=== PATIENT | male | born 1945 | race American Indian/Alaskan Native ===

== ENCOUNTER 2016-08-12 04:54 | Inpatient (IN) ==
[2016-08-12] MEDS ORDERED: CIPROFLOXACIN 400 MG/200 ML BAG IV ONE (07:00)
[2016-08-12] MEDS ORDERED: LABETALOL 100 MG TABLET PO ONE (07:30)
[2016-08-12] MEDS ORDERED: PHENYTOIN SOD 100 MG CAPSULE PO ONE (07:30)
[2016-08-12] MEDS ORDERED: MIDAZOLAM 5 MG/5 ML VIAL IV ONE (07:35)
[2016-08-12] MEDS ORDERED: ONDANSETRON 4 MG/2 ML VIAL IV ONE (07:35)
[2016-08-12] MEDS ORDERED: ROCURONIUM 10 MG/ML ML IV ONE (07:35)
[2016-08-12] MEDS ORDERED: fentaNYL 250 MCG/5 ML VIAL IV ONE (07:35)
[2016-08-12] MEDS ORDERED: DEXAMETHASONE 10 MG/ML VIAL IV ONE (07:35)
[2016-08-12] MEDS ORDERED: PROPOFOL 200 MG/20 ML VIAL IV ONE (07:35)
[2016-08-12] MEDS ORDERED: NEOSTIGMINE 1 MG/ML VIAL IV ONE (07:35)
[2016-08-12] MEDS ORDERED: GLYCOPYRROLATE 0.2 MG/ML VIAL IV ONE (07:35)
[2016-08-12] MEDS ORDERED: LIDOCAINE HCL/PF 100 MG/5 ML SYRINGE IV ONE (07:35)
[2016-08-12] MEDS ORDERED: HYDROmorphone 2 MG/ML SYRINGE IV PRN (08:44)
[2016-08-12] MEDS ORDERED: METHOCARBAMOL 1,000 MG/10 ML VIAL IV PRN (08:44)
[2016-08-12] MEDS ORDERED: diphenhydrAMINE 50 MG/ML VIAL IV PRN (08:44)
[2016-08-12] MEDS ORDERED: FLUMAZENIL 0.1 MG/ML ML IV PRN (08:44)
[2016-08-12] MEDS ORDERED: ONDANSETRON 4 MG/2 ML VIAL IV PRN ×3 (08:44→12:09)
[2016-08-12] MEDS ORDERED: IPRATROPIUM/ALBUTEROL 3 ML AMPUL.NEB NEB PRN ×2 (08:44→15:07)
[2016-08-12] MEDS ORDERED: MEPERIDINE 25 MG/ML SYRINGE IV PRN (08:44)
[2016-08-12] MEDS ORDERED: LACTATED RINGERS 250 ML IV PRN (08:44)
[2016-08-12] MEDS ORDERED: NALOXONE HCL 0.4 MG/ML VIAL IV PRN (08:44)
[2016-08-12] MEDS ORDERED: LACTATED RINGERS 1,000 ML IV SCH (08:45)
[2016-08-12] MEDS ORDERED: MAG HYDROX/AL HYDROX/SIMETH 30 ML ORAL.SUSP PO PRN ×2 (08:49→12:09)
[2016-08-12] MEDS ORDERED: oxyCODONE/APAP 5/325MG TABLET PO PRN ×2 (08:49→12:09)
[2016-08-12] MEDS ORDERED: traMADol 50 MG TABLET PO PRN ×2 (08:55→12:09)
--- NOTE | 2016-08-12 08:57 | Brief Operative Note ---
Date of procedure: 08/12/16 Pre-op diagnosis: right renal cell ca Post-op diagnosis: same Procedure: right partial nephrectomy Grafts/Implants: No Anesthesia: GETA Findings: see note Complications: none Surgeon: Kendirck Rawls Him Tech: Ajay Malone Estimated blood loss (cc): 100 Specimens Removed/Pathology: other (renal mass) Condition: stable Disposition: PACU
[2016-08-12] MEDS ORDERED: KETOCONAZOLE 200 MG TABLET PO SCH ×2 (09:00→21:00)
[2016-08-12] MEDS ORDERED: LISINOPRIL 20 MG TABLET PO SCH (09:00)
[2016-08-12] MEDS ORDERED: PHENYTOIN SOD 100 MG CAPSULE PO SCH (09:00)
[2016-08-12] MEDS ORDERED: HYDROCHLOROTHIAZIDE 12.5 MG CAPSULE PO SCH (09:00)
[2016-08-12] MEDS ORDERED: amLODIPine 10 MG TABLET PO SCH (09:00)
[2016-08-12] MEDS ORDERED: DEXTROSE 5%-1/2NS W/20MEQ KCL 1,000 ML IV SCH (09:00)
[2016-08-12] MEDS ORDERED: FUROSEMIDE 40 MG TABLET PO SCH (09:00)
[2016-08-12] MEDS ORDERED: DIFLUNISAL 500 MG PO SCH ×2 (09:00→21:00)
[2016-08-12] MEDS ORDERED: CALCIUM CARBONATE 500 MG TAB.CHEW CHEWED SCH (09:00)
[2016-08-12] MEDS: fentaNYL 100 MCG/2 ML VIAL IV PRN ×4 (09:20→09:34)
--- NOTE | 2016-08-12 09:45 | Operative Note ---
DATE OF OPERATION: 08/12/2016 PREOPERATIVE DIAGNOSIS: Right renal cell carcinoma. POSTOPERATIVE DIAGNOSIS: Right renal cell carcinoma. PROCEDURE: Right partial nephrectomy. SURGEON: Kendrick Rawls MD INDICATION: The patient is a 71-year-old gentleman who has had prostate cancer in the past and was in the ER for nausea, vomiting. A CT scan was obtained which showed a right lower pole mass consistent with renal cell carcinoma. This was incidental. He presents now for treatment. PROCEDURE: The patient was identified and consent was signed. He was given general anesthesia, placed in the lateral decubitus position with right side up and prepped and draped in a standard fashion. Incision was made below the 12th rib and this was carried down through the fascia and muscle layers with electrocautery. We were able to go through the transversalis fascia and were able to identify Gerota's fascia. We then were able to open this up and were able to feel the mass of the lower pole of the right kidney. We carefully dissected around the mass and were able to isolate this. This appeared to be on the lower pole of the right kidney. Using the Cyber laser, we were able to remove the mass. Bleeding was controlled and I was pleased with the overall appearance. We then did put Gelfoam over the wound and inspected for bleeding, there was none. I then closed the Gerota's fascia with 3-0 Vicryl and then closed the fascial layers individually with a 0 PDS. I was pleased with the overall appearance. Local anesthesia was instilled. We then closed the skin with yuri. Sterile dressings were applied. The patient was awoken and taken to recovery room in stable condition. He tolerated the procedure well. Needle and sponge counts were correct. Estimated blood loss was 100 mL. JUAN FRANCISCO:lauren Job ID: [id number] Doc ID: [id number] Kendrick Rawls MD
[2016-08-12] MEDS ORDERED: BUPIVACAINE W/EPI 0.25% 50 ML VIAL IJ ONE (10:07)
[2016-08-12] MEDS ORDERED: GELATIN SPONGE,ABSORBABLE 1 EACH SPONGE TOPICAL ONE (10:07)
[2016-08-12] MEDS: DEXTROSE 5%-1/2NS W/20MEQ KCL 1,000 ML IV SCH ×2 (12:00→20:00)
[2016-08-12] MEDS: 0.9 % SODIUM CHLORIDE 10 ML SYRINGE IV SCH ×2 (13:00→20:54)
[2016-08-12] MEDS ORDERED: POTASSIUM CHLORIDE 20 MEQ TABLET PO SCH ×2 (14:00)
[2016-08-12] MEDS ORDERED: 0.9 % SODIUM CHLORIDE 10 ML SYRINGE IV SCH (14:00)
[2016-08-12] MEDS: cloNIDine HCL 0.1 MG TABLET PO SCH ×2 (14:22→20:43)
[2016-08-12] MEDS: PHENYTOIN SOD 100 MG CAPSULE PO SCH ×2 (14:23→20:42)
[2016-08-12] MEDS: LABETALOL 100 MG TABLET PO SCH ×2 (14:29→20:51)
[2016-08-12] MEDS ORDERED: cloNIDine HCL 0.1 MG TABLET PO SCH (15:00)
[2016-08-12] MEDS ORDERED: LABETALOL 100 MG TABLET PO SCH (15:00)
[2016-08-12] MEDS: metFORMIN 500 MG TABLET PO SCH (17:02)
[2016-08-12] MEDS ORDERED: metFORMIN 500 MG TABLET PO SCH (17:30)
[2016-08-12] MEDS ORDERED: CIPROFLOXACIN 400 MG/200 ML BAG IV SCH ×2 (21:00)
[2016-08-12] MEDS ORDERED: TAMSULOSIN 0.4 MG CAPSULE PO SCH ×2 (21:00)
[2016-08-12] MEDS ORDERED: PRAZOSIN 1 MG CAPSULE PO SCH ×2 (21:00)
[2016-08-13] MEDS: DEXTROSE 5%-1/2NS W/20MEQ KCL 1,000 ML IV SCH ×5 (03:49→23:51)
[2016-08-13 05:29] LABS: Mean Cell Volume 93.1 fL (80.0-100.0); Mean Corpuscular HGB Conc 32.8 g/dL (31.0-36.0); Mean Corpuscular Hemoglobin 30.5 pg (26.0-34.0); Platelet Count 275 K/mcL (140-440); RBC 3.27 M/mcL (4.50-5.90)
[2016-08-13] MEDS: 0.9 % SODIUM CHLORIDE 10 ML SYRINGE IV SCH ×3 (05:46→21:34)
[2016-08-13 05:54] LABS: Blood Urea Nitrogen 5 mg/dl (8-23)
--- NOTE | 2016-08-13 07:27 | General Surgery Progress Note ---
Subjective Patient reports: pain is less Narrative: Note initiated : 08/13/16 at 7:25 am Service Date, if different from initiated Date: [] Patient: Jose R Rodríguez 71 y/o M admitted on 08/12/16 for Nephrectomy. Chief Complaint: [] Postop day #1 Patient states that he is doing well. His pain is controlled with medication. Afebrile vital signs are stable. His urine is clear and hematocrit is stable. I will ambulate him today and transfer him to the floor. There is no need for telemetry. Will await bowel function returned. Objective Temp Pulse Resp BP Pulse Ox 99.0 F 78 24 137/72 92 08/13/16 06:22 08/13/16 03:45 08/13/16 06:22 08/13/16 06:22 08/13/16 06:22 - Additional Data Intake & Output - Last 24 hours: Intake & Output 08/11/16 08/12/16 08/13/16 08/14/16 05:59 05:59 05:59 05:59 Intake Total 5604 / 5604 Output Total 2700 / 2700 Balance 2904 / 2904 Weight 181 lb 8 oz 185 lb - Labs 08/13/16 04:40 08/13/16 04:40 Diabetes panel 08/13/16 Range/Units 04:40 Sodium 135 (133-145) mmol/L Potassium 3.6 (3.3-5.1) mmol/L Chloride 101 (96-108) mmol/L Carbon Dioxide 22 (22-30) mmol/L BUN 5 L (8-23) mg/dl Creatinine 0.7 (0.7-1.2) mg/dl Glucose 180 H (70-105) mg/dL Calcium 8.1 L (8.6-10.4) mg/dl Calcium panel 08/13/16 Range/Units 04:40 Calcium 8.1 L (8.6-10.4) mg/dl Pituitary panel 08/13/16 Range/Units 04:40 Sodium 135 (133-145) mmol/L Potassium 3.6 (3.3-5.1) mmol/L Chloride 101 (96-108) mmol/L Carbon Dioxide 22 (22-30) mmol/L BUN 5 L (8-23) mg/dl Creatinine 0.7 (0.7-1.2) mg/dl Glucose 180 H (70-105) mg/dL Calcium 8.1 L (8.6-10.4) mg/dl Adrenal panel 08/13/16 Range/Units 04:40 Sodium 135 (133-145) mmol/L Potassium 3.6 (3.3-5.1) mmol/L Chloride 101 (96-108) mmol/L Carbon Dioxide 22 (22-30) mmol/L BUN 5 L (8-23) mg/dl Creatinine 0.7 (0.7-1.2) mg/dl Glucose 180 H (70-105) mg/dL Calcium 8.1 L (8.6-10.4) mg/dl Assessment and Plan - Time Spent With Patient Total time spent is greater than 50% in coordination of care (as documented) at patient's floor/unit and/or counseling patient:
[2016-08-13] MEDS ORDERED: IPRATROPIUM/ALBUTEROL 3 ML AMPUL.NEB NEB PRN (08:16)
[2016-08-13] MEDS: CYANOCOBALAMIN (VITAMIN B-12) 500 MCG TABLET PO SCH (08:19)
[2016-08-13] MEDS: metFORMIN 500 MG TABLET PO SCH ×2 (08:19→17:08)
[2016-08-13] MEDS: cloNIDine HCL 0.1 MG TABLET PO SCH ×3 (08:20→22:54)
[2016-08-13] MEDS: LISINOPRIL 20 MG TABLET PO SCH (08:20)
[2016-08-13] MEDS: HYDROCHLOROTHIAZIDE 12.5 MG CAPSULE PO SCH (08:21)
[2016-08-13] MEDS: amLODIPine 10 MG TABLET PO SCH (08:21)
[2016-08-13] MEDS: PHENYTOIN SOD 100 MG CAPSULE PO SCH ×3 (08:21→22:55)
[2016-08-13] MEDS: CALCIUM CARBONATE 500 MG TAB.CHEW CHEWED SCH (08:21)
[2016-08-13] MEDS: LABETALOL 100 MG TABLET PO SCH ×3 (08:37→22:53)
[2016-08-13] MEDS: FUROSEMIDE 40 MG TABLET PO SCH (08:37)
[2016-08-13] MEDS ORDERED: Solifenacin Succinate [Vesicare] 10 mg Tab PO SCH ×2 (09:00)
[2016-08-13] MEDS ORDERED: LISINOPRIL 20 MG TABLET PO SCH (09:00)
[2016-08-13] MEDS ORDERED: FUROSEMIDE 40 MG TABLET PO SCH (09:00)
[2016-08-13] MEDS ORDERED: CYANOCOBALAMIN (VITAMIN B-12) 500 MCG TABLET PO SCH ×2 (09:00)
[2016-08-13] MEDS ORDERED: CALCIUM CARBONATE 500 MG TAB.CHEW CHEWED SCH (09:00)
[2016-08-13] MEDS ORDERED: amLODIPine 10 MG TABLET PO SCH (09:00)
[2016-08-13] MEDS ORDERED: HYDROCHLOROTHIAZIDE 12.5 MG CAPSULE PO SCH (09:00)
[2016-08-13] MEDS: DIFLUNISAL 500 MG PO SCH ×2 (09:05→22:55)
[2016-08-13] MEDS: KETOCONAZOLE 200 MG TABLET PO SCH ×2 (09:05→23:00)
[2016-08-13] MEDS: Solifenacin Succinate [Vesicare] 10 mg Tab PO SCH (09:06)
[2016-08-13] MEDS: POTASSIUM CHLORIDE 20 MEQ TABLET PO SCH (14:12)
[2016-08-13] MEDS ORDERED: BISACODYL 10 MG SUPP.RECT PR PRN (18:54)
[2016-08-13] MEDS ORDERED: FLEETS ADULT ENEMA PR PRN (18:54)
[2016-08-13] MEDS: oxyCODONE/APAP 5/325MG TABLET PO PRN (20:34)
[2016-08-13] MEDS: ONDANSETRON 4 MG/2 ML VIAL IV PRN (21:35)
[2016-08-13] MEDS: DOCUSATE SODIUM 100 MG CAPSULE PO SCH (22:54)
[2016-08-13] MEDS: TAMSULOSIN 0.4 MG CAPSULE PO SCH (22:54)
[2016-08-13] MEDS: PRAZOSIN 1 MG CAPSULE PO SCH (22:55)
[2016-08-14] MEDS: 0.9 % SODIUM CHLORIDE 10 ML SYRINGE IV SCH ×3 (04:57→22:41)
[2016-08-14] MEDS: DEXTROSE 5%-1/2NS W/20MEQ KCL 1,000 ML IV SCH ×3 (04:58→15:25)
[2016-08-14] MEDS: oxyCODONE/APAP 5/325MG TABLET PO PRN ×3 (05:27→22:53)
[2016-08-14] MEDS: metFORMIN 500 MG TABLET PO SCH ×2 (07:34→17:19)
[2016-08-14] MEDS: LISINOPRIL 20 MG TABLET PO SCH (08:17)
[2016-08-14] MEDS: LABETALOL 100 MG TABLET PO SCH ×3 (08:17→20:45)
[2016-08-14] MEDS: cloNIDine HCL 0.1 MG TABLET PO SCH ×3 (08:17→20:45)
[2016-08-14] MEDS: FUROSEMIDE 40 MG TABLET PO SCH (08:18)
[2016-08-14] MEDS: DOCUSATE SODIUM 100 MG CAPSULE PO SCH ×2 (08:18→20:45)
[2016-08-14] MEDS: CALCIUM CARBONATE 500 MG TAB.CHEW CHEWED SCH (08:18)
[2016-08-14] MEDS: HYDROCHLOROTHIAZIDE 12.5 MG CAPSULE PO SCH (08:18)
[2016-08-14] MEDS: amLODIPine 10 MG TABLET PO SCH (08:18)
[2016-08-14] MEDS: CYANOCOBALAMIN (VITAMIN B-12) 500 MCG TABLET PO SCH (08:18)
[2016-08-14] MEDS: Solifenacin Succinate [Vesicare] 10 mg Tab PO SCH (08:19)
[2016-08-14] MEDS: PHENYTOIN SOD 100 MG CAPSULE PO SCH ×3 (08:19→20:46)
[2016-08-14] MEDS: DIFLUNISAL 500 MG PO SCH ×2 (08:19→20:47)
[2016-08-14] MEDS: KETOCONAZOLE 200 MG TABLET PO SCH ×2 (08:19→20:47)
--- NOTE | 2016-08-14 10:37 | General Surgery Progress Note ---
Subjective Patient reports: feels better Narrative: Note initiated : 08/14/16 at 10:36 am Service Date, if different from initiated Date: [] Patient: Jose R Rodríguez 71 y/o M admitted on 08/12/16 for Nephrectomy. Chief Complaint: [] Postop day #2 Patient is doing well. He still has abdominal distention but states that he is passing gas. His vital signs are stable. Wound is clean and dry. I will watch him today see how he does and make sure his pain is under control. He does have Percocet for the pain. Objective Temp Pulse Resp BP Pulse Ox 98.2 F 81 16 146/71 92 08/14/16 06:58 08/14/16 03:50 08/14/16 06:58 08/14/16 06:58 08/14/16 06:58 - Additional Data Intake & Output - Last 24 hours: Intake & Output 08/12/16 08/13/16 08/14/16 08/15/16 05:59 05:59 05:59 05:59 Intake Total 5604 / 5604 3180 / 3180 360 / 360 Output Total 2700 / 2700 3825 / 3825 350 / 350 Balance 2904 / 2904 -645 / -645 10 Weight 181 lb 8 oz 185 lb 182 lb - Labs 08/13/16 04:40 08/13/16 04:40 Assessment and Plan - Time Spent With Patient Total time spent is greater than 50% in coordination of care (as documented) at patient's floor/unit and/or counseling patient:
[2016-08-14] MEDS: ONDANSETRON 4 MG/2 ML VIAL IV PRN ×2 (12:52→19:22)
[2016-08-14] MEDS: POTASSIUM CHLORIDE 20 MEQ TABLET PO SCH (14:16)
[2016-08-14] MEDS: traMADol 50 MG TABLET PO PRN ×2 (16:20→20:48)
[2016-08-14] MEDS: PRAZOSIN 1 MG CAPSULE PO SCH (20:45)
[2016-08-14] MEDS: TAMSULOSIN 0.4 MG CAPSULE PO SCH (20:46)
[2016-08-15] MEDS: DEXTROSE 5%-1/2NS W/20MEQ KCL 1,000 ML IV SCH (02:30)
[2016-08-15] MEDS: 0.9 % SODIUM CHLORIDE 10 ML SYRINGE IV SCH ×3 (05:49→20:44)
[2016-08-15] MEDS: Solifenacin Succinate [Vesicare] 10 mg Tab PO SCH (08:59)
[2016-08-15] MEDS: CALCIUM CARBONATE 500 MG TAB.CHEW CHEWED SCH (09:00)
[2016-08-15] MEDS: amLODIPine 10 MG TABLET PO SCH (09:00)
[2016-08-15] MEDS: metFORMIN 500 MG TABLET PO SCH ×2 (09:01→17:14)
[2016-08-15] MEDS: FUROSEMIDE 40 MG TABLET PO SCH (09:01)
[2016-08-15] MEDS: cloNIDine HCL 0.1 MG TABLET PO SCH ×3 (09:01→20:41)
[2016-08-15] MEDS: CYANOCOBALAMIN (VITAMIN B-12) 500 MCG TABLET PO SCH (09:01)
[2016-08-15] MEDS: HYDROCHLOROTHIAZIDE 12.5 MG CAPSULE PO SCH (09:02)
[2016-08-15] MEDS: DOCUSATE SODIUM 100 MG CAPSULE PO SCH ×2 (09:02→20:42)
[2016-08-15] MEDS: LABETALOL 100 MG TABLET PO SCH ×3 (09:02→20:41)
[2016-08-15] MEDS: LISINOPRIL 20 MG TABLET PO SCH (09:02)
[2016-08-15] MEDS: PHENYTOIN SOD 100 MG CAPSULE PO SCH ×3 (09:04→20:43)
[2016-08-15] MEDS: KETOCONAZOLE 200 MG TABLET PO SCH ×2 (09:32→20:44)
[2016-08-15] MEDS: DIFLUNISAL 500 MG PO SCH ×2 (09:32→20:44)
--- NOTE | 2016-08-15 09:50 | General Surgery Progress Note ---
Subjective Patient reports: nausea Narrative: Note initiated : 08/15/16 at 9:48 am Service Date, if different from initiated Date: [] Patient: Jose R Rodríguez 71 y/o M admitted on 08/12/16 for Nephrectomy. Chief Complaint: [] Postop day #3 Patient states he is having some nausea. This is different from the nausea that he had preoperatively. His belly is distended but has had positive bowel sounds and did have a bowel movement yesterday. This appears to be an ileus and I will put him back on fluids and use a Dulcolax suppository. Hopefully this resolves. I've also told him he can use Percocet 1-2 tablets every 4-6 hours for the pain. I will watch him overnight and see how he does. Objective Temp Pulse Resp BP Pulse Ox 98.4 F 84 20 176/88 92 08/15/16 07:34 08/15/16 04:28 08/15/16 07:34 08/15/16 07:34 08/15/16 07:34 - Additional Data Intake & Output - Last 24 hours: Intake & Output 08/13/16 08/14/16 08/15/16 08/16/16 05:59 05:59 05:59 05:59 Intake Total 5604 / 5604 3180 / 3180 1890 / 1890 110 / 110 Output Total 2700 / 2700 3825 / 3825 1575 / 1575 75 / 75 Balance 2904 / 2904 -645 / -645 315 / 315 35 / 35 Weight 185 lb 182 lb 184 lb 8 oz - Labs 08/13/16 04:40 08/13/16 04:40 Assessment and Plan - Time Spent With Patient Total time spent is greater than 50% in coordination of care (as documented) at patient's floor/unit and/or counseling patient:
[2016-08-15] MEDS: ONDANSETRON 4 MG/2 ML VIAL IV PRN (10:25)
[2016-08-15] MEDS: DEXTROSE 5%-1/2NS W/10MEQ KCL 1,000 ML IV SCH (11:18)
[2016-08-15] MEDS: POTASSIUM CHLORIDE 20 MEQ TABLET PO SCH (13:34)
[2016-08-15] MEDS: MAGNESIUM HYDROXIDE 30 ML ORAL.SUSP PO PRN (14:18)
[2016-08-15] MEDS: oxyCODONE/APAP 10/325MG TABLET PO PRN (18:44)
[2016-08-15] MEDS: PRAZOSIN 1 MG CAPSULE PO SCH (20:42)
[2016-08-15] MEDS: TAMSULOSIN 0.4 MG CAPSULE PO SCH (20:42)
[2016-08-15] MEDS ORDERED: BISACODYL 10 MG SUPP.RECT PR SCH (21:00)
[2016-08-16] MEDS: DEXTROSE 5%-1/2NS W/10MEQ KCL 1,000 ML IV SCH (00:39)
[2016-08-16] MEDS: oxyCODONE/APAP 10/325MG TABLET PO PRN ×2 (03:09→08:35)
[2016-08-16] MEDS: 0.9 % SODIUM CHLORIDE 10 ML SYRINGE IV SCH (04:45)
[2016-08-16 06:29] LABS: Mean Cell Volume 93.7 fL (80.0-100.0); Mean Corpuscular Hemoglobin 31.8 pg (26.0-34.0); Platelet Count 343 K/mcL (140-440); RBC 3.34 M/mcL (4.50-5.90)
[2016-08-16 07:00] LABS: Blood Urea Nitrogen 10 mg/dl (8-23)
[2016-08-16] MEDS ORDERED: POTASSIUM CHLORIDE 20 MEQ TABLET PO ONE (07:35)
--- NOTE | 2016-08-16 07:58 | General Surgery Progress Note ---
Subjective Patient reports: feels better Narrative: Note initiated : 08/16/16 at 7:57 am Service Date, if different from initiated Date: [] Patient: Jose R Rodríguez 71 y/o M admitted on 08/12/16 for Nephrectomy. Chief Complaint: [] Postop day #4 Patient states he is feeling better. He has been passing flatus and having bowel movements. He is tolerating a regular diet. His potassium was low and I did supplement him. He does want to be discharged to an SNF and this will be arranged. We'll plan to see him back in 2 days for staple removal. Otherwise he is doing well. Objective Temp Pulse Resp BP Pulse Ox 98.1 F 88 20 163/90 90 08/16/16 07:39 08/16/16 07:39 08/16/16 07:39 08/16/16 07:39 08/16/16 07:39 - Additional Data Intake & Output - Last 24 hours: Intake & Output 08/14/16 08/15/16 08/16/16 08/17/16 05:59 05:59 05:59 05:59 Intake Total 3180 / 3180 1890 / 1890 2710 / 2710 Output Total 3825 / 3825 1575 / 1575 1575 / 1575 Balance -645 / -645 315 / 315 1135 / 1135 Weight 182 lb 184 lb 8 oz 189 lb 8 oz - Labs 08/16/16 05:38 08/16/16 05:38 Diabetes panel 08/16/16 Range/Units 05:38 Sodium 138 (133-145) mmol/L Potassium 2.7 L* (3.3-5.1) mmol/L Chloride 97 (96-108) mmol/L Carbon Dioxide 27 (22-30) mmol/L BUN 10 (8-23) mg/dl Creatinine 0.8 (0.7-1.2) mg/dl Glucose 194 H (70-105) mg/dL Calcium 8.7 (8.6-10.4) mg/dl Calcium panel 08/16/16 Range/Units 05:38 Calcium 8.7 (8.6-10.4) mg/dl Pituitary panel 08/16/16 Range/Units 05:38 Sodium 138 (133-145) mmol/L Potassium 2.7 L* (3.3-5.1) mmol/L Chloride 97 (96-108) mmol/L Carbon Dioxide 27 (22-30) mmol/L BUN 10 (8-23) mg/dl Creatinine 0.8 (0.7-1.2) mg/dl Glucose 194 H (70-105) mg/dL Calcium 8.7 (8.6-10.4) mg/dl Adrenal panel 08/16/16 Range/Units 05:38 Sodium 138 (133-145) mmol/L Potassium 2.7 L* (3.3-5.1) mmol/L Chloride 97 (96-108) mmol/L Carbon Dioxide 27 (22-30) mmol/L BUN 10 (8-23) mg/dl Creatinine 0.8 (0.7-1.2) mg/dl Glucose 194 H (70-105) mg/dL Calcium 8.7 (8.6-10.4) mg/dl Assessment and Plan - Time Spent With Patient Total time spent is greater than 50% in coordination of care (as documented) at patient's floor/unit and/or counseling patient:
[2016-08-16] MEDS: CYANOCOBALAMIN (VITAMIN B-12) 500 MCG TABLET PO SCH (08:23)
[2016-08-16] MEDS: PHENYTOIN SOD 100 MG CAPSULE PO SCH (08:23)
[2016-08-16] MEDS: metFORMIN 500 MG TABLET PO SCH (08:24)
[2016-08-16] MEDS: LABETALOL 100 MG TABLET PO SCH (08:24)
[2016-08-16] MEDS: LISINOPRIL 20 MG TABLET PO SCH (08:24)
[2016-08-16] MEDS: HYDROCHLOROTHIAZIDE 12.5 MG CAPSULE PO SCH (08:25)
[2016-08-16] MEDS: DOCUSATE SODIUM 100 MG CAPSULE PO SCH (08:25)
[2016-08-16] MEDS: amLODIPine 10 MG TABLET PO SCH (08:25)
[2016-08-16] MEDS: FUROSEMIDE 40 MG TABLET PO SCH (08:25)
[2016-08-16] MEDS: DIFLUNISAL 500 MG PO SCH (08:26)
[2016-08-16] MEDS: CALCIUM CARBONATE 500 MG TAB.CHEW CHEWED SCH (08:26)
[2016-08-16] MEDS: KETOCONAZOLE 200 MG TABLET PO SCH (08:26)
[2016-08-16] MEDS: Solifenacin Succinate [Vesicare] 10 mg Tab PO SCH (08:36)
[2016-08-16] MEDS: cloNIDine HCL 0.1 MG TABLET PO SCH (08:49)
--- NOTE | 2016-08-16 09:08 | Discharge Summary ---
DATE OF ADMISSION: 08/12/2016 DATE OF DISCHARGE: ADMITTING DIAGNOSIS: Renal cell carcinoma DISCHARGE DIAGNOSIS: Renal cell carcinoma. PROCEDURE: Right partial nephrectomy. INDICATION: Patient is a 71-year-old gentleman who was known to have an incidental mass on his kidney. This was consistent with renal cell carcinoma. He presents for excision. For the rest of the History and Physical, please see dictation. HOSPITAL COURSE: The patient did well postoperatively. He did have some nausea and vomiting, but this resolved with return of bowel function. His pain was controlled with medication. His wound was clean and dry. Final pathology is pending. On the day of discharge he did have low potassium and this was supplemented, and he is now ready for discharge to home. He does desire to go [place] a [place] [facility] [place]. Therefore, he will be [place] a [place] [facility] [place]. We will plan to follow up in 2-3 days to remove the yuri. Written instructions were given as well as prescriptions. JUAN FRANCISCO:lauren Job ID: [id number] Doc ID: [id number] Kendrick Rawls MD
[2016-08-16] MEDS: MAGNESIUM HYDROXIDE 30 ML ORAL.SUSP PO PRN (10:56)
--- NOTE | 2016-08-16 14:58 | Surgical Pathology Report ---
HISTOLOGY SPECIMEN MICROSCOPIC DIAGNOSIS KIDNEY, RIGHT, PARTIAL NEPHRECTOMY: -- CLEAR CELL RENAL CELL CARCINOMA - TUMOR SIZE: 3.9 X 2.8 X 2.6 cm. - TUMOR FOCALITY: UNIFOCAL. - HISTOLOGIC TYPE: CLEAR CELL RENAL CELL CARCINOMA. - HISTOLOGIC GRADE: G3. - SARCOMATOID FEATURES: NOT IDENTIFIED. - MACROSCOPIC EXTENT OF TUMOR: TUMOR LIMITED TO KIDNEY. - MICROSCOPIC TUMOR EXTENSION: TUMOR LIMITED TO KIDNEY. - LYMPH-VASCULAR INVASION: ABSENT. - MARGINS: CARCINOMA FOCALLY PRESENT AT THE INKED AND CAUTERIZED PARENCHYMAL MARGIN. - LYMPH NODES: NOT SUBMITTED. - PATHOLOGIC STAGE: pT1a pNX. (SE:djf) SUMMARY CANCER DATA Procedure: Partial nephrectomy. Specimen Laterality: Right. Tumor Size: 3.9 x 2.8 x 2.6 cm. Tumor Focality: Unifocal. Histologic Type: Clear cell renal cell carcinoma. Histologic ([place]) Grade: G3. Sarcomatoid Features: Not identified. Macroscopic Extent of Tumor: Tumor limited to kidney. Microscopic Tumor Extension: Tumor limited to kidney. Lymph-Vascular Invasion: Absent. Margins: Carcinoma focally present at the inked and cauterized renal parenchymal margin. Lymph Nodes: Not submitted. Pathologic Stage: pT1a pNX. PROCEDURAL IMPRESSION Right renal cell carcinoma. GROSS DESCRIPTION Received in formalin labeled right kidney mass, is a tissue fragment with an ovoid discrete mass with some attached yellow-jimenez adipose tissue and a rough resection margin. This entire specimen weighs 12 grams and measures 2.6 x 2.8 x 4.5 cm. On the surface of the mass is a thin membrane. The entire surface is inked black. The obvious resection margin is over-inked blue. The specimen is serially sectioned. Cut surfaces show a yellow-jimenez, thinly encapsulated mass which measures 3.9 x 2.8 x 2.6 cm. A rim of adipose tissue partially surrounds the lesion. By gross examination, the mass does not appear extend to the resection margin and does not extend into any of the attached fat. The majority of the specimen is submitted in four cassettes. (RAD:sln) Electronically Signed by: Kelsi Reddy D.O.
== END 2016-08-16 13:55 ==
LOC: ICU 04:54 → EDSTATUS 07:30 → MEDSUR 08-13 19:46

== ENCOUNTER 2016-11-17 09:10 | Inpatient (IN) ==
[2016-11-17] MEDS ORDERED: IOPAMIDOL 100 ML BOTTLE IJ ONE (09:11)
[2016-11-17] MEDS ORDERED: HYDROmorphone 2 MG/ML SYRINGE IV SCH (10:00)
[2016-11-17] MEDS ORDERED: 0.9 % SODIUM CHLORIDE 1,000 ML IV ONE ×3 (10:00→13:58)
[2016-11-17 10:28] LABS: Basophils # (Auto) 0.1 K/mcL (0.0-0.3); Basophils % (Auto) 0.5 % (0.0-2.0); Eosinophils # (Auto) 0.3 K/mcL (0.0-0.7); Granulocytes % (Auto) 86.5 % (38.0-78.0); Lymphocytes # (Auto) 0.8 K/mcL (1.5-4.8); Lymphocytes % (Auto) 5.2 % (15.5-49.0); Mean Cell Volume 86.4 fL (80.0-100.0); Mean Corpuscular HGB Conc 34.9 g/dL (31.0-36.0); Mean Corpuscular Hemoglobin 30.1 pg (26.0-34.0); Monocytes # (Auto) 0.9 K/mcL (0.1-0.9); Monocytes % (Auto) 5.8 % (1.0-12.0); Platelet Count 563 K/mcL (140-440); Red Cell Distribution Width 13.9 % (11.5-14.5)
[2016-11-17 10:35] LABS: ALT/SGPT 8 U/l (0-40); Albumin 3.3 gm/dL (3.2-5.2); Alkaline Phosphatase 137 U/L (39-117); Blood Urea Nitrogen 7 mg/dl (8-23)
--- NOTE | 2016-11-17 11:30 | Emergency Department Note ---
Abdominal Pain HPI - General Source: patient Mode of arrival: ambulatory Limitations: no limitations - History of Present Illness Onset (ago): day(s) (4) Consistency: constant Location: LLQ Severity: moderate, severe Severity scale (1-10): 8 Quality: cramping, aching, sharp Migration to: no migration Improves with: nothing Worsens with: nothing Associated symptoms: Reports: diarrhea, constipation. Denies: nausea, vomiting , fever, hematochezia, melena <Maulik Nathan - Last Filed: 11/17/16 12:07> <Tristen Stark - Last Filed: 11/17/16 15:06> - General Chief Complaint: Abdominal Pain Stated Complaint: Left lower abdominal pain Time Seen by Provider: 11/17/16 09:35 - History of Present Illness HPI Narrative: Patient is a 71-year-old male who presents with 4 days of pain in his left lower quadrant, 2 days without bowel movement, with diarrhea prior to that. He is describing moderate to severe pain in his left lower quadrant, that is aching with some sharp quality. The pain does not radiate out of the left lower quadrant. The patient is denying fevers chills night sweats at home. He was recently ill with pneumonia and was treated with a Z-Demond. Which she has finished at this point. (Maulik Nathan) had PNA 2 weeks ago or so (Tristen Stark) - Related Data Home Medications Medication Instructions Recorded Confirmed clonidine HCl 0.2 mg tablet 0.2 mg PO TID 30 Days 01/01/15 11/17/16 ketoconazole 200 mg tablet 200 mg PO BID 30 Days 01/01/15 11/17/16 labetalol 300 mg tablet 300 mg PO TID 30 Days 01/01/15 11/17/16 lisinopril 20 mg tablet 20 mg PO DAILY 30 Days 01/01/15 11/17/16 phenytoin sodium extended 100 mg 300 mg PO TID 30 Days 01/01/15 11/17/16 capsule potassium chloride ER 10 mEq 20 meq PO BID 30 Days 01/01/15 11/17/16 capsule,extended release prazosin 1 mg capsule 2 mg PO HS 30 Days 01/01/15 11/17/16 Diflunisal 500 mg PO BID 08/05/16 11/17/16 Solifenacin Succinate [Vesicare] 5 mg PO DAILY 08/05/16 11/17/16 Tamsulosin HCl [Flomax] 0.4 mg PO HS 08/05/16 11/17/16 traMADol [Ultram] 50 mg PO DAILY 08/05/16 11/17/16 ibuprofen 200 mg tablet 200 mg PO .Q4-8H PRN tab 09/13/16 11/17/16 Cyanocobalamin/Folic Acid [Vitamin 2,000 mcg DAILY 11/17/16 11/17/16 H58-Iciic Acid Tablet] Hydrochlorothiazide [Oretic] 12.5 mg PO DAILY 11/17/16 11/17/16 metFORMIN [Glucophage] 1,000 mg PO BIDCC 11/17/16 11/17/16 Previous Rx's Medication Instructions Recorded Ipratropium/Albuterol [Duoneb] 3 ml NEB Q6HP PRN #0 ampul.neb 08/16/16 Allergies Allergy/AdvReac Type Severity Reaction Status Date / Time cephalexin [From KEFLEX] Allergy Intermediate HIVES Verified 11/17/16 09:14 levofloxacin [From Levaquin] Allergy Intermediate Hives Verified 11/17/16 09:14 Penicillins Allergy Intermediate HIVES Verified 11/17/16 09:14 Review of Systems All systems ED: reviewed and negative except as stated. <Tristen Stark - Last Filed: 11/17/16 15:06> Abdominal Pain PMH - Social History Alcohol use: Reports: Unknown (Denies current alcohol use but prior alcoholism.) Drug use: Reports: none <Maulik Nathan - Last Filed: 11/17/16 12:07> - Past Medical History Attestation: Yes: The following information was validated with the patient. Medical history: Reports: arthritis, cancer (Renal cell carcinoma status post right nephrectomy partial, prostate cancer status post seed implants), COPD, diabetes (With neuropathy), hypertension, seizures, other (Traumatic brain injury status post craniotomy, thoracic aortic aneurysm dissection) Surgical history ED: Reports: appendectomy, cataract, cholecystectomy - Social History Smoking status: Former smoker Drug use: Reports: other (Polysubstance abuse history) <Tristen Stark - Last Filed: 11/17/16 15:06> Physical Exam - General Limitations: no limitations General appearance: alert, other (in pain) - Head Head exam: atraumatic, normocephalic - Eye Eye exam: Present: normal appearance, PERRL, EOMI. Absent: scleral icterus, conjunctival injection - ENT ENT exam: mucous membranes moist - Respiratory Respiratory exam: Present: normal lung sounds bilaterally. Absent: respiratory distress, wheezes, stridor - Cardiovascular Cardiovascular exam: Present: regular rate, normal rhythm - Abdominal Exam Abdominal exam: Present: soft, tenderness, diminished bowel sounds. Absent: guarding, rebound, rigidity Abdominal tenderness: Present: LLQ - Skin Skin exam: Present: warm, dry, intact <Maulik Nathan - Last Filed: 11/17/16 12:07> <Tristen Stark - Last Filed: 11/17/16 15:06> Ill-appearing. Pertinent exam includes tender entire left side. Athetotic tongue movements. (Tristen Stark) Vital Signs Temperature 97.8 F 11/17/16 09:11 Pulse Rate 92 H 11/17/16 09:11 Respiratory Rate 22 11/17/16 09:11 Blood Pressure 158/70 11/17/16 09:11 Pulse Oximetry (%) 95 11/17/16 09:11 Temperature 98.4 F 11/17/16 12:30 Pulse Rate 85 11/17/16 14:28 Respiratory Rate 13 11/17/16 14:28 Blood Pressure 173/85 11/17/16 12:30 Pulse Oximetry (%) 89 L 11/17/16 14:31 Abdominal Pain - Lab Data Result diagrams: 11/17/16 09:38 11/17/16 09:38 <Maulik Nathan - Last Filed: 11/17/16 12:07> - Lab Data Lab results reviewed: Yes I reviewed the patient's lab results. Result diagrams: 11/17/16 09:38 11/17/16 09:38 - Radiology Data Radiology results reviewed: Yes I reviewed the patient's radiology results. <Tristen Stark - Last Filed: 11/17/16 15:06> - [facility] Narrative Medical decision making narrative: Patient was imaged to assess for possibility of diverticulitis. Imaging revealed a left lung lobe abscess, interventional radiology has agreed to drain this abscess. The patient will be admitted today. ([place]) - Lab Data Lab Results 11/17/16 11/17/16 Range/Units 09:38 09:38 WBC 14.7 H (4.5-11.0) K/mcL RBC 3.20 L (4.50-5.90) M/mcL Hgb 9.6 L (13.5-16.5) g/dL Hct 27.6 L (41.0-55.0) % MCV 86.4 (80.0-100.0) fL MCH 30.1 (26.0-34.0) pg MCHC 34.9 (31.0-36.0) g/dL RDW 13.9 (11.5-14.5) % Plt Count 563 H (140-440) K/mcL MPV 7.2 L (7.4-10.4) fL Gran % 86.5 H (38.0-78.0) % Lymph % (Auto) 5.2 L (15.5-49.0) % [place] % (Auto) 5.8 (1.0-12.0) % Eos % (Auto) 2.0 (0.0-7.0) % Baso % (Auto) 0.5 (0.0-2.0) % Gran # 12.6 H (1.8-8.0) K/mcL Lymph # (Auto) 0.8 L (1.5-4.8) K/mcL [place] # (Auto) 0.9 (0.1-0.9) K/mcL Eos # (Auto) 0.3 (0.0-0.7) K/mcL Baso # (Auto) 0.1 (0.0-0.3) K/mcL Sodium 130 L (133-145) mmol/L Potassium 3.4 (3.3-5.1) mmol/L Chloride 93 L (96-108) mmol/L Carbon Dioxide 21 L (22-30) mmol/L Anion Gap 16.0 (8-16) BUN 7 L (8-23) mg/dl Creatinine 0.6 L (0.7-1.2) mg/dl GFR Calculation 103 Glucose 163 H (70-105) mg/dL Calcium 8.5 L (8.6-10.4) mg/dl Total Bilirubin 0.4 (0.0-1.0) mg/dL AST 7 (0-37) U/l ALT 8 (0-40) U/l Alkaline Phosphatase 137 H (39-117) U/L Total Protein 6.7 (5.9-8.4) gm/dL Albumin 3.3 (3.2-5.2) gm/dL Globulin 3.4 (2.2-3.7) gm/dL Albumin/Globulin Ratio 1.0 (1.0-2.3) - Radiology Data CT scan of the abdomen and pelvis with contrast shows a left-sided empyema on the lung portion shown. (Tristen Stark) Disposition <Maulik Nathan - Last Filed: 11/17/16 12:07> Pt seen by [employer]Y HOUSE TENDER/PA only: No <Tristen Stark - Last Filed: 11/17/16 15:06> Clinical Impression: Empyema Summary: He is treated with IV fluids and Dilaudid for pain while working up Initial differential included diverticulitis and intestinal issues however on workup he is found to have empyema likely secondary to previously diagnosed bronchitis/pneumonia. Dr. Fonseca in radiology says that he can drain this but may need to do chest tube. Further discussed the case with Dr. Brown hospitalist who agreed to admit the patient for further workup and care as noted above (Tristen Stark) Disposition: Xfer As Inpt ([facility]) Condition: Fair
--- NOTE | 2016-11-17 13:27 | Cat Scan Report ---
CLINICAL INFORMATION: Left-sided abdominal pain. History of left lower lobe pneumonia over the past six weeks COMPARISON: Abdomen and pelvic CT from 07/02/2013 and chest x-ray from 10/07/2016 and 11/07/2016. TECHNIQUE: Following enteric contrast, 80 cc of Isovue-300 were injected intravenously, and 60 seconds later, 2.5 mm helical slices were obtained from the mid heart through the subtrochanteric regions. Following reconstruction, 2.5 mm sagittal, coronal and axial reformatted images were processed and reviewed at bone, lung and soft tissue windows. Five minutes later, 5 mm helical slices were obtained from the mid heart through the kidneys and viewed at soft tissue windows. FINDINGS: There is a 4.5 cm abscess in the lateral basilar segment of the left lower lobe with moderate surrounding consolidated pneumonia and small left pleural effusion. Right lung base is unremarkable. The visualized heart is normal. Images through the abdomen show the gallbladder is surgically absent. Common bile is normal - 5 mm Liver is unremarkable. Both kidneys, adrenal glands, spleen and pancreas are normal. Patient previously had a focal dissection of the mid abdominal aorta, but the false lumen is now organized thrombosis and the aortic diameter is stable. 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 The urinary bladder is grossly normal There is a 20 x 12 mm metallic foreign body in the retroperitoneal fat adjacent to the right colon. within. On the business instructor images, this consists of three joined metallic discs. Very small amount of fluid is seen in the adjacent right paranephric space. There is no free air to suggest an acute perforation. Bone windows show chronic L5-S1 spondylolysis with grade 1 spondylolisthesis and broad disc protrusion resulting in severe bilateral IV foraminal narrowing with impingement of the exiting L5 nerve roots. IMPRESSION: 1. 4.5 cm abscess in the lateral segment of the left lower lobe with moderate surrounding consolidated pneumonia and small effusion. CT-guided percutaneous drainage to be performed. This patient has had a left lower lobe pneumonia on plain film for over six weeks 2. 20 mm metallic foreign body in the retrocolic fat adjacent to the ascending colon. Presumably, this was ingested and is now perforated through the posterior wall the ascending colon. There is no evidence of free or retroperitoneal air to suggest a recent perforation. It was not seen on the 07/02/2013 comparison study 3. Chronic bilateral L5-S1 spondylolysis and grade 1 listhesis and broad disc protrusion resulting in severe bilateral IV foraminal narrowing impinging of the exiting L5 nerve roots. 4. 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 Small focal dissection the mid abdominal aorta has thrombosed and is stable in diameter. Interpreted and Authenticated by: Antonio Fonseca 11/17/16
[2016-11-17] MEDS ORDERED: ONDANSETRON 4 MG/2 ML VIAL IV PRN (13:58)
[2016-11-17] MEDS ORDERED: DEXTROSE 31 GM ORAL.SUSP PO PRN (13:58)
[2016-11-17] MEDS ORDERED: ACETAMINOPHEN 325 MG TABLET PO PRN (13:58)
[2016-11-17] MEDS ORDERED: NALOXONE HCL 0.4 MG/ML VIAL IV PRN (13:58)
[2016-11-17] MEDS ORDERED: VANCOMYCIN PER PHARMACY IV SCH (13:58)
[2016-11-17] MEDS ORDERED: DEXTROSE 50% 50 ML VIAL IV PRN (13:58)
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
[2016-11-17] MEDS ORDERED: IPRATROPIUM/ALBUTEROL 3 ML AMPUL.NEB NEB ONE (14:12)
[2016-11-17] MEDS: IPRATROPIUM/ALBUTEROL 3 ML AMPUL.NEB NEB SCH ×2 (14:27→19:27)
[2016-11-17] MEDS: 0.9 % SODIUM CHLORIDE 10 ML SYRINGE IV SCH ×2 (15:41→23:46)
--- NOTE | 2016-11-17 17:46 | Cat Scan Report ---
CLINICAL INFORMATION: Patient with left lower lobe pneumonia for over six weeks which was unresponsive to antibiotics. He developed a 4.5 cm abscess within the infiltrate as a complication TECHNIQUE: The procedure and risks including the possibility of bleeding, infection, pneumothorax, bronchopleural fistula and spleen rupture were explained the patient. He understood and wished to proceed. He was medicated prior to, and during, the procedure with a total of 2 mg of versed and 100 micrograms leak of fentanyl given intravenously in divided dosages. Blood pressure and pulse oximetry were monitored: The maintained consciousness during the procedure. Total sedation time: one hour. With the patient in supine position, the abscess was first CT localized. The skin overlying the abscess was marked, prepped and locally anesthetized with 1% lidocaine to the level of the capsule using a 25-gauge needle. A 17-gauge styletted needle was then placed in the center of the abscess and less than 1 cc of purulent material was aspirated and discarded. A 0.035 J-wire was then placed through the styletted needle and coiled in the abscess cavity. Following dilatation to 12 Hungarian, a 12 Hungarian pigtail catheter was placed over stiffener into the abscess cavity and the wire was removed. Pigtail was locked. Approximately 20 cc of segment of purulent fluid was aspirated and sent for Gram stain culture and sensitivity. The cavity was then washed with 10 cc saline aliquots and left to gravity bag drainage. Post procedure scanning shows the tube in optimal position in the center of the abscess which is now collapsed IMPRESSION: Successful percutaneous placement of 12 Hungarian pigtail drainage catheter into the 4.5 cm abscess within the left lower lobe pneumonia. Approximately 20 cc sanguinopurulent fluid was aspirated and sent for Gram stain culture and sensitivity. The tube was then washed with normal sterile saline, sutured to the skin and left to gravity bag drainage. Nursing instructions were given to irrigate the tube with 10 cc aliquots of normal saline daily every six hours and recording output. When the output is less than 5 cc over 24 hour period, the patient should be rescanned. If the cavity is collapsed, the tube can be removed at that time. This may require one week or greater. Interpreted and Authenticated by: Antonio Fonseca 11/17/16
[2016-11-17] MEDS ORDERED: fentaNYL 100 MCG/2 ML VIAL IV ONE (17:48)
[2016-11-17] MEDS ORDERED: MIDAZOLAM 2 MG/2 ML VIAL IV ONE (17:49)
[2016-11-17] MEDS ORDERED: cloNIDine HCL 0.1 MG TABLET PO PRN (17:49)
[2016-11-17] MEDS: HYDROmorphone 2 MG/ML SYRINGE IV PRN ×2 (18:02→21:09)
[2016-11-17] MEDS: INSULIN LISPRO 1 UNIT/0.01 ML UNIT SQ SCH ×2 (18:05→21:14)
[2016-11-17 18:29] LABS: pH,Body Fluid 6.01
[2016-11-17 18:55] LABS: Total Protein,Pleural Fluid 4.5 gm/dL
[2016-11-17] MEDS: WATER IV SCH (19:24)
[2016-11-17] MEDS: AZTREONAM IV SCH (19:24)
[2016-11-17] MEDS: DEXTROSE 5% IV SCH (19:24)
[2016-11-17] MEDS: 0.9 % SODIUM CHLORIDE 1,000 ML IV SCH (19:24)
[2016-11-17 19:44] LABS: Glucose,Pleural Fluid 82 mg/dL; LDH,Pleural Fluid 1640 U/L
[2016-11-17 20:16] LABS: Appearance,Pleural Fluid BLOODY; Color,Pleural Fluid RED; Nucleated Cells,Pleural Fld 1111000 /cumm; RBC,Pleural Fluid > 100000 /cumm
[2016-11-17] MEDS ORDERED: TAMSULOSIN 0.4 MG CAPSULE PO SCH (21:00)
[2016-11-17] MEDS ORDERED: traZODone HCL 50 MG TABLET PO PRN (21:00)
[2016-11-17] MEDS ORDERED: PHENYTOIN SOD 100 MG CAPSULE PO SCH (21:00)
[2016-11-17] MEDS ORDERED: cloNIDine HCL 0.1 MG TABLET PO SCH (21:00)
[2016-11-17] MEDS ORDERED: HEPARIN 5,000 UNIT/ML VIAL SQ SCH (21:00)
[2016-11-17] MEDS: VANCOMYCIN 1,000 MG in 0.9 % SODIUM CHLORIDE 250 ML IV SCH ×2 (21:07→23:46)
[2016-11-17 21:59] LABS: Neutrophils,Pleural Fluid 100 %
[2016-11-17] MEDS ORDERED: HYDROCODONE/APAP 7.5/325MG TABLET PO PRN (22:18)
[2016-11-17] MEDS ORDERED: IPRATROPIUM/ALBUTEROL 3 ML AMPUL.NEB NEB PRN (22:25)
[2016-11-17] MEDS ORDERED: HYDROCODONE/APAP 7.5/325MG TABLET PO ONE (22:26)
[2016-11-17] MEDS ORDERED: cloNIDine HCL 0.1 MG TABLET ONE (22:26)
[2016-11-17] MEDS ORDERED: hydrALAZINE 20 MG/ML VIAL IV PRN (22:31)
[2016-11-17] MEDS ORDERED: NITROGLYCERIN 0.4 MG TAB.SUBL SL ONE ×3 (22:55→23:55)
[2016-11-17] MEDS ORDERED: METOPROLOL TARTRATE 5 MG/5 ML VIAL IV ONE ×2 (23:04→23:05)
[2016-11-17 23:56] LABS: Creatine Kinase MB < 1.0 ng/ml (0-4.9)
[2016-11-17 23:57] LABS: Creatine Kinase 45 IU/L (24-195)
--- NOTE | 2016-11-18 00:19 | Event Note ---
BETHANY, evaluate patient with acute chest pain, tachycardia, low-grade temperature and new onset hypoxia. According to the patient, the chest pain started this evening, was in the middle of the chest, sharp worse with respiration, different than the pain he presented with. The patient had a heart rate of around 110, 120, temperature 100.5 blood pressure 180/100 the patient had some sweating going on, EKG showed sinus tachycardia, troponin done which were negative, chest x-ray done showedleft lower lobe effusion, the patient had a recently placed pigtail catheter for left-sided abscess. The patient also has a history of aortic aneurysm or thoracic as well as abdominal aorta. CT angios of the chest and abdomen and pelvis has been ordered. We will repeat troponin after 6 hours. The patient to ICU. Continue oxygen supplementation, bring the blood pressure down with IV beta klarissa medications.
[2016-11-18] MEDS ORDERED: IOPAMIDOL 100 ML BOTTLE IV ONE (00:21)
[2016-11-18] MEDS ORDERED: METOPROLOL TARTRATE 5 MG/5 ML VIAL IV ONE ×3 (00:34→00:49)
[2016-11-18] MEDS: HYDROmorphone 2 MG/ML SYRINGE IV PRN ×4 (00:48→15:15)
[2016-11-18] MEDS ORDERED: hydrALAZINE 20 MG/ML VIAL IV PRN (00:49)
[2016-11-18] MEDS ORDERED: traZODone HCL 50 MG TABLET PO PRN (00:49)
[2016-11-18] MEDS ORDERED: DEXTROSE 31 GM ORAL.SUSP PO PRN (00:49)
[2016-11-18] MEDS ORDERED: cloNIDine HCL 0.1 MG TABLET PO PRN (00:49)
[2016-11-18] MEDS ORDERED: ACETAMINOPHEN 325 MG TABLET PO PRN (00:49)
[2016-11-18] MEDS ORDERED: VANCOMYCIN PER PHARMACY IV SCH (00:49)
[2016-11-18] MEDS ORDERED: DEXTROSE 50% 50 ML VIAL IV PRN (00:49)
[2016-11-18] MEDS ORDERED: NALOXONE HCL 0.4 MG/ML VIAL IV PRN (00:49)
[2016-11-18] MEDS ORDERED: ONDANSETRON 4 MG/2 ML VIAL ONE (01:08)
[2016-11-18] MEDS ORDERED: PHENYTOIN SOD 100 MG CAPSULE PO ONE (01:11)
[2016-11-18] MEDS: 0.9 % SODIUM CHLORIDE 1,000 ML IV SCH ×2 (01:15→14:29)
[2016-11-18] MEDS: ONDANSETRON 4 MG/2 ML VIAL IV PRN ×2 (01:16→15:06)
[2016-11-18] MEDS: AZTREONAM IV SCH ×4 (01:18→23:03)
[2016-11-18] MEDS: DEXTROSE 5% IV SCH ×4 (01:18→23:03)
[2016-11-18] MEDS: WATER IV SCH ×4 (01:18→23:03)
[2016-11-18] MEDS ORDERED: ENOXAPARIN 80 MG/0.8 ML SYRINGE SQ STA (01:48)
[2016-11-18] MEDS ORDERED: ENOXAPARIN 80 MG/0.8 ML SYRINGE ONE (01:58)
[2016-11-18] MEDS: VANCOMYCIN 1,000 MG in 0.9 % SODIUM CHLORIDE 250 ML IV SCH ×3 (02:09→21:14)
[2016-11-18] MEDS ORDERED: HYDROmorphone 2 MG/ML SYRINGE ONE (04:02)
--- NOTE | 2016-11-18 05:17 | XRay Report ---
CLINICAL INFORMATION: Chest pain COMPARISON: 11/07/2016 plain film and chest CT from 11/17/2016 FINDINGS: Moderate cardiomegaly is unchanged. Aneurysmal enlargement of the thoracic aortic arch is stable. The remaining mediastinum and pulmonary vessels are normal. Pigtail catheter in the left lateral base is located in the known abscess cavity. Moderate left lower lobe consolidation with small left pleural effusion shows slight increase from the CT. IMPRESSION: Moderate consolidated infiltrate/atelectasis in the left base shows mild increased from CT earlier. Pigtail catheter within the left lower lobe abscess cavity in stable position. Aneurysm of the thoracic aortic arch and cardiomegaly - both stable Interpreted and Authenticated by: Antonio Fonseca 11/18/16
[2016-11-18] MEDS: 0.9 % SODIUM CHLORIDE 10 ML SYRINGE IV SCH ×5 (07:13→15:15)
[2016-11-18] MEDS ORDERED: metFORMIN 500 MG TABLET PO SCH (08:00)
[2016-11-18 08:06] LABS: Basophils # (Auto) 0 K/mcL (0.0-0.3); Basophils % (Auto) 0 % (0.0-2.0); Eosinophils # (Auto) 0.1 K/mcL (0.0-0.7); Eosinophils % (Auto) 0.4 % (0.0-7.0); Granulocytes % (Auto) 93.2 % (38.0-78.0); Lymphocytes # (Auto) 0.8 K/mcL (1.5-4.8); Lymphocytes % (Auto) 3.1 % (15.5-49.0); Mean Corpuscular HGB Conc 34.7 g/dL (31.0-36.0); Mean Corpuscular Hemoglobin 30.2 pg (26.0-34.0); Monocytes # (Auto) 0.9 K/mcL (0.1-0.9); Monocytes % (Auto) 3.3 % (1.0-12.0); Platelet Count 560 K/mcL (140-440); RBC 3.34 M/mcL (4.50-5.90); Red Cell Distribution Width 14.1 % (11.5-14.5)
[2016-11-18 08:28] LABS: ALT/SGPT 9 U/l (0-40); Albumin 2.9 gm/dL (3.2-5.2); Albumin/Globulin Ratio 0.9 (1.0-2.3); Alkaline Phosphatase 142 U/L (39-117); Bilirubin,Direct 0.4 mg/dL (0.0-0.3); Blood Urea Nitrogen 7 mg/dl (8-23); Gamma Glutamyl Transpeptidase 207 U/L (8-61); Magnesium 1.6 mg/dL (1.6-2.5); Uric Acid 2.3 mg/dL (2.5-8.0)
[2016-11-18] MEDS: HYDROCODONE/APAP 7.5/325MG TABLET PO PRN (08:43)
[2016-11-18] MEDS: INSULIN LISPRO 1 UNIT/0.01 ML UNIT SQ SCH ×4 (08:44→21:26)
[2016-11-18] MEDS: POTASSIUM CHLORIDE 20 MEQ TABLET PO SCH ×2 (08:44→17:51)
[2016-11-18] MEDS ORDERED: MAGNESIUM SULFATE 2 GM/50 ML BAG IV ONE (08:50)
[2016-11-18] MEDS ORDERED: traMADol 50 MG TABLET PO SCH (09:00)
[2016-11-18] MEDS ORDERED: HYDROCHLOROTHIAZIDE 12.5 MG CAPSULE PO SCH (09:00)
[2016-11-18] MEDS ORDERED: HEPARIN 5,000 UNIT/ML VIAL SQ SCH (09:00)
[2016-11-18] MEDS ORDERED: LABETALOL 100 MG TABLET PO SCH (09:00)
[2016-11-18] MEDS ORDERED: cloNIDine HCL 0.1 MG TABLET PO SCH (09:00)
[2016-11-18] MEDS ORDERED: POTASSIUM CHLORIDE 20 MEQ PO SCH (09:00)
[2016-11-18] MEDS ORDERED: LISINOPRIL 20 MG TABLET PO SCH (09:00)
[2016-11-18] MEDS ORDERED: SOLIFENACIN SUCCINATE 5 MG PO SCH (09:00)
--- NOTE | 2016-11-18 10:04 | Internal Med Progress Note ---
Medical - PN: Subj Patient information: Note initiated : 11/18/16 at 10:01 am Service Date, if different from initiated Date: [] Patient: Jose R Rodríguez 71 y/o M admitted on 11/17/16 for Left lower abdominal pain. Chief Complaint: [] Interval history: Mr. Rodríguez is a 71 year old Male with h/o recent heminephrectomy on the right side for renal cell cancer. The source was done in AUG[place]. By Dr. Rawls The patient had a CAT scan done at the end of SEPTEMBER showed a left lower lobe pneumonia with possible small effusion. According to the patient since then he has had multiple rounds of treatment with antibiotics. He was treated at [facility] with some antibiotics. I see from Dr. Rawls clinic note that he was also on Bactrimduring that time period. The patient has been seen in the ED twice here and has been given Zithromax for community-acquired pneumonia and bronchitis. The patient's x-rays has been showing left lower lobe pneumonia and possibly fluid. This time the patient complains of left sided chest pain as well as left-sided upper abdominal pain. This has been going on for the last 4 days, progressively getting worse, pain is sharp in nature, worse with respiration. Better with rest. She did have some chills but denies any fever. Cough with brownish sputum. Initially there may have been some blood in the sputum. pain is nonradiating. The patient presented to the ER with these symptoms, he had an elevated white blood cell count in the ED, normal creatinine, his sodium was 1:30. The patient had a CT of the abdomen and pelvis which showed loculated effusion in the left lower lobe as well as pneumonia in the left lower lobe. The patient will undergo a CAT scan guided drainage of this loculated effusion, possible abscess. I discussed the case with radiology. 11/18: patient and examined, events since admission reviewed. The patient underwent a left-sided pigtail catheter placement, by radiology. The patient tolerated the procedure well. However, later in the evening the patient developedpain in the left side of the chest initially was in the upper part of the chest and then slowly moved downwards. The patient was diaphoretic, tachypneic, had increased oxygen requirement and had elevated blood pressures. The patient underwent the x-ray of his chest which did not show any pneumothorax but did show increased fluid in the left lower lung. Given that he had elevated blood pressure, tachycardia and chest pain which was radiating down his history of aortic aneurysm in the thoracic aorta. We got a CT angiogram of the chest, abdomen and pelvis. This was negative for any dissection. However, it was read as a possible pulmonary embolism in the left upper lobe. Patient was started on Lovenox therapeutic dose for anticoagulation. I'm awaiting the opportunity from radiologist to determine if the patient clearly has a pulmonary embolism. The patient's condition stabilized after he received adequate pain management. The patient this morning notes that he had some nausea overnight but no other acute complaints. The pain is still there but not as bad as before. I reviewed with him the findings of the pleural fluid as well as the scans admitted overnight Pertinent ROS: Denies headache, dizziness atient has left-sided chest pain but no palpitations. Denies cough or shortness of breath left upper side abdominal pain, some nausea, no vomiting Additional PMFSH (Level 3 Only): eview - Constitutional Vitals: Vital Signs Temp Pulse Resp BP Pulse Ox 99.4 F H 96 H 18 172/83 93 11/18/16 07:42 11/18/16 08:37 11/18/16 05:58 11/18/16 08:31 11/18/16 08:37 Period Temp Pulse Resp BP Sys/[place]umada Pulse Ox Last 24 Hr 98.1 F-100.5 F 84-135 13-25 125-202/72-111 83-95 Intake and Output 11/17/16 11/18/16 11/18/16 21:59 05:59 13:59 Intake Total 2500 / 2500 1600 / 1600 300 / 300 Output Total 670 / 670 740 / 740 Balance 1830 / 1830 860 / 860 300 / 300 Weight 166 lb Intake & Output: Intake & Output 11/17/16 11/18/16 11/18/16 21:59 05:59 13:59 Intake Total 2500 / 2500 1600 / 1600 300 / 300 Output Total 670 / 670 740 / 740 Balance 1830 / 1830 860 / 860 300 / 300 Weight 166 lb Intake: IV 2049 1350 / 1350 Azactam 2 gm In Dextrose 50 / 50 50 / 50 5% in Water 50 ml @ 100 mls/hr IV Q8H [facility] Rx#: [id number] Vancomycin 1,000 mg In 250 / 250 Sodium Chloride 0.9% 250 ml @ 250 mls/hr IV Q12H [facility] Rx#:[id number] Oral 450 / 450 250 / 250 300 / 300 Output: Drainage 40 / 40 left lateral midback 40 / 40 Void Amount 670 / 670 700 / 700 Exam: Constitutional; Afebrile, cooperative, alert, not in distress. Eyes- No icterus, , No periorbital swelling Ears- Ext ear normal, hearing normal to conversation. Neck- Midline trachea, supple Respiratory system: Air Entry equal on both sides, No crackles or wheezing, no rhonchi. CVS- Rate rhythm regular, S1,S2 heard, no gallop, no rub. Abdomen- Soft nontender abdomen, no organomegaly, no tenderness, no guarding or rigidity, [employer]- AOOx3, moving all extremities, no gross focal deficit noted. diskinetic movements, Medical - PN: Obj Da - Labs CBC & Chem 7: 11/18/16 07:38 11/18/16 07:38 Labs: Abnormal Lab Results 11/18/16 11/18/16 11/17/16 07:38 07:38 14:15 WBC 26.7 H RBC 3.34 L Hgb 10.1 L Hct 29.1 L Plt Count 560 H MPV 7.0 L Gran % 93.2 H Lymph % (Auto) 3.1 L Gran # 24.9 H Lymph # (Auto) 0.8 L APTT 63 H Sodium 131 L Chloride 93 L BUN 7 L Creatinine 0.5 L Glucose 152 H Uric Acid 2.3 L Calcium 8.1 L Direct Bilirubin 0.4 H GGT 207 H Alkaline Phosphatase 142 H Albumin 2.9 L Albumin/Globulin Ratio 0.9 L Meds: Medications Acetaminophen (Tylenol) 650 mg PO Q6HP PRN PRN Reason: PAIN/FEVER > 101 Hydrocodone Bitart/Acetaminophen ([place] 7.5/325mg) 1 - 2 tab PO Q6HP PRN PRN Reason: Pain Last Admin: 11/18/16 08:43 Dose: 1 tab Albuterol/Ipratropium (Duoneb) 3 ml NEB Q6HP PRN PRN Reason: Shortness Of Breath Clonidine HCl (Catapres) 0.1 mg PO Q4HP PRN PRN Reason: Hypertension Last Admin: 11/18/16 04:17 Dose: 0.1 mg Clonidine HCl (Catapres) 0.2 mg PO TID [facility] Dextrose (Dextrose 50%) 0 ml IV UD PRN PRN Reason: Hypoglycemia Diagnostic Test (Pha) (Accu-Chek) 1 each FS ACHS [facility] Last Admin: 11/18/16 07:18 Dose: 1 each Enoxaparin Sodium (Lovenox) 80 mg SQ BID [facility] Glucose (Insta-Glucose) 15 gm PO PRN PRN PRN Reason: Hypoglycemia Hydralazine HCl (Apresoline) 10 mg IV Q4-6HP PRN PRN Reason: Hypertension Hydrochlorothiazide (Oretic) 12.5 mg PO DAILY [facility] Hydromorphone HCl (Dilaudid) 0.5 mg IV Q2HP PRN PRN Reason: Pain Last Admin: 11/18/16 04:17 Dose: 0.5 mg Aztreonam 2 gm/ Dextrose 50 mls @ 100 mls/hr IV Q8H [facility] Last Infusion: 11/18/16 05:51 Dose: Infused Sodium Chloride (Sodium Chloride 0.9%) 1,000 mls @ 100 mls/hr IV .Q10H [facility] Stop: 11/19/16 05:57 Last Admin: 11/18/16 01:15 Dose: 100 mls/hr Vancomycin HCl 1,000 mg/ (Sodium Chloride) 250 mls @ 250 mls/hr IV Q12H [facility] Last Admin: 11/18/16 02:09 Dose: Not Given Insulin Human Lispro (Humalog) 0 unit SQ ACHS [facility] PRN Reason: Protocol Last Admin: 11/18/16 08:44 Dose: 1 unit Labetalol HCl (Trandate) 300 mg PO TID [facility] Lisinopril (Zestril) 20 mg PO DAILY [facility] Naloxone HCl (Narcan) 0.1 mg IV Q2MIN PRN PRN Reason: Opiate Reversal Solifenacin Succinate [Vesicare] 10 Mg 5 mg PO DAILY [facility] Ondansetron HCl (Zofran) 4 mg IV Q6HP PRN PRN Reason: Nausea And Vomiting Last Admin: 11/18/16 01:16 Dose: 4 mg Phenytoin Sodium (Dilantin) 300 mg PO TID [facility] Last Admin: 11/18/16 08:44 Dose: 20 meq Prazosin HCl (Minipress) 2 mg PO HS [facility] Sodium Chloride (Saline Flush) 10 ml IV Q8 [facility] Last Admin: 11/18/16 07:13 Dose: 10 ml Tamsulosin HCl (Flomax) 0.4 mg PO HS [facility] Tramadol HCl (Ultram) 50 mg PO DAILY [facility] Trazodone HCl (Desyrel) 25 mg PO HSP PRN PRN Reason: Insomnia Vancomycin HCl (Vancomycin Per Pharmacy) 1 order IV UD [facility] Medical - PN: A/P - Time Spent With Patient Total time spent is greater than 50% in coordination of care (as documented) at patient's floor/unit and/or counseling patient: - Narrative A/P Narrative: A/P Lung Abscess/ Empyema: Left lung abscess vs empyema, liklely empyema, To have CT guided drain placed. fluid studies suggestive of empyema, drain in place, IV antibiotics, cultures showing gram positive cocci in chains. Await identification and sensitivities. Pneumonia: HCAP pna, IV vancomycin and IV aztreonam. wbc worse today, likely from procedure and manipulation yesterday, monitor. Sepsis: due to above, IV fluids, check lactic acid, treat underlying etiology, pt is afebrile and bp is stable. Pulmonary Embolism: possible PE on CT A done for Aneurysm, Will await radiology interpretation. Chest pain Acute: Due to pig tail cath placement. Pain management with home meds and IV dilaudid. DM: hold home meds, Sliding scale insulin HTN: Uncontrolled due to pain, Resume home meds, adequate pain management and monitor. Renal Cell Ca: s/p Surgery, FB in abdomen: Noted on Ct, does not seem to be an acute issue, will discuss with Dr Rawls as it is near his right kidney, and he is s/p recent partial nephrectomy. h/o Seizures: on dilantin, last seizure 2001, check dilantin level, this may be the reason for his chr dyskinetic movements. Chr pain: Resume home pain meds, IV dialudid prn for acute pain (new chest tube / drain) Aortic Aneurysm: Medical management as per home regime, CT Angio neg for dissection. , Drug abuse/ Etoh abuse: patient denies same, but Prob list mentions substance abuse, he admits to use of THC. DVT enoxparin. Diet Diabetic Cardiac diet Code Status DNR Medical - PN: Qual - VTE Deep Vein Thrombosis/Pulmonary Embolism Present on Admission: No
[2016-11-18] MEDS: ENOXAPARIN 80 MG/0.8 ML SYRINGE SQ SCH ×2 (10:22→21:13)
[2016-11-18] MEDS: HYDROCHLOROTHIAZIDE 12.5 MG CAPSULE PO SCH (10:23)
[2016-11-18] MEDS: traMADol 50 MG TABLET PO SCH (10:23)
[2016-11-18] MEDS: cloNIDine HCL 0.1 MG TABLET PO SCH ×3 (10:25→21:13)
[2016-11-18] MEDS: PHENYTOIN SOD 100 MG CAPSULE PO SCH ×3 (10:25→21:12)
[2016-11-18] MEDS: LABETALOL 100 MG TABLET PO SCH ×3 (10:26→21:26)
[2016-11-18] MEDS: LISINOPRIL 20 MG TABLET PO SCH (10:26)
[2016-11-18] MEDS: Solifenacin Succinate [Vesicare] 10 MG PO SCH (10:27)
[2016-11-18] MEDS ORDERED: INSULIN LISPRO 1 UNIT/0.01 ML UNIT SQ ONE (13:41)
--- NOTE | 2016-11-18 13:43 | Ultrasound Report ---
CLINICAL INFORMATION: Possible pulmonary embolism COMPARISON: None. FINDINGS: The entire deep venous system of both lower extremities including the common femoral, superficial femoral, popliteal and paired trifurcation calf veins are easily compressible and show normal venous blood flow on color and spectral Doppler. No evidence of thrombus IMPRESSION: Negative exam - no evidence of deep vein thrombosis in either lower extremity. Interpreted and Authenticated by: Antonio Fonseca 11/18/16
--- NOTE | 2016-11-18 18:03 | Cat Scan Report ---
CLINICAL INFORMATION: Chest pain with history of thoracic aortic and abdominal aortic aneurysm. Recently, patient has had a left lower lobe pneumonia, complicated by abscess which was percutaneously drained earlier today COMPARISON: None evidence of pelvic CT from August 17, 2016 CT angiogram from 10/07/2016 TECHNIQUE: Using SmartPrep to optimize arterial opacification, 80 cc of Optiray 320 were injected intravenously and 2.5 mm helical slices were obtained the lung apices through the subtrochanteric regions. Following reconstruction, sagittal coronal and axial reformatted images including Processed and reviewed at bone and soft tissue and soft tissue windows FINDINGS: Mediastinal windows show 5 cm diameter saccular aneurysm in the distal thoracic aortic arch. The diameter has been stable since eight 07/02/[address] over three years ago. Small associated focal dissection noted. Remaining thoracic aorta is unremarkable. The pulmonary arteries are poorly opacified - particularly the higher order levels. No gross evidence of embolus. The heart is normal in size configuration with minimal scattered scarring plaque. Esophagus is normal. There are no abnormally enlarged lymph nodes in the mediastinal, hilar or axillary regions. The thyroid is normal. Pulmonary parenchymal windows show a 12 [place] pigtail catheter within the known collapsed abscess cavity in the lateral left lower lobe. Moderate sized infiltrate throughout the left lower lobe show slight progression. There is a moderate left pleural effusion with loculated components laterally which show slight progression. Mild centrilobular emphysema changes are noted and there is mild atelectasis in the posterior right lower lobe. Images should the abdomen show the liver to be unremarkable. The gallbladder is surgically absent. Common bile ducts are unremarkable. Patient is status post partial right nephrectomy and there is a metallic foreign body in the right perinephric fat which may be a surgically placed. Small amount of edema is seen in the perinephric space. There is bilateral mild perinephric stranding is unchanged Spleen, pancreas, both adrenal glands are unremarkable. Small focal dissection of the infrarenal abdominal aorta is seen - as before. 3 cm saccular aneurysm of the infrarenal abdominal aorta just above the bifurcation is also stable No free air, free fluid and no adenopathy prostate is mildly enlarged. The stomach small large bowel are grossly normal. IMPRESSION: 1. Percutaneous drain in satisfactory position within the collapsed abscess cavity of the lateral left lower lobe. Moderate sized infiltrate/atelectasis involving most of the left lower lobe no slight progression. Slight worsening in the left pleural effusion which remains moderate in size with small loculated component laterally. No CT evidence for empyema or hemorrhage. No pneumothorax. 2. Mild centrilobular emphysema changes 3. Saccular aneurysm of the distal thoracic aortic arch which demonstrates long-term stability - greater than three years... Small associated dissection. 4. Abdominal images show a 3 x 1 cm saccular aneurysm of the infrarenal abdominal aorta just above the bifurcation stable. Small focal dissection of the mid abdominal aorta which has a thrombosed false lumen seen as before Interpreted and Authenticated by: Antonio Fonseca 11/18/16
[2016-11-18] MEDS ORDERED: PRAZOSIN 1 MG CAPSULE PO SCH (21:00)
[2016-11-18] MEDS: TAMSULOSIN 0.4 MG CAPSULE PO SCH (21:13)
[2016-11-18] MEDS: PRAZOSIN 1 MG CAPSULE PO SCH (21:14)
[2016-11-19] MEDS: 0.9 % SODIUM CHLORIDE 10 ML SYRINGE IV SCH ×9 (01:14→21:21)
[2016-11-19] MEDS: HYDROmorphone 2 MG/ML SYRINGE IV PRN ×4 (01:39→21:00)
[2016-11-19] MEDS: 0.9 % SODIUM CHLORIDE 1,000 ML IV SCH ×2 (02:09→19:29)
[2016-11-19] MEDS: IPRATROPIUM/ALBUTEROL 3 ML AMPUL.NEB NEB PRN ×2 (04:53→06:54)
[2016-11-19] MEDS: ONDANSETRON 4 MG/2 ML VIAL IV PRN (04:53)
[2016-11-19 05:55] LABS: Basophils # (Auto) 0.1 K/mcL (0.0-0.3); Basophils % (Auto) 0.4 % (0.0-2.0); Eosinophils # (Auto) 0.2 K/mcL (0.0-0.7); Eosinophils % (Auto) 1.1 % (0.0-7.0); Granulocytes % (Auto) 89.8 % (38.0-78.0); Lymphocytes % (Auto) 4.6 % (15.5-49.0); Mean Cell Volume 87.2 fL (80.0-100.0); Mean Corpuscular HGB Conc 34.6 g/dL (31.0-36.0); Mean Corpuscular Hemoglobin 30.2 pg (26.0-34.0); Monocytes # (Auto) 0.9 K/mcL (0.1-0.9); Monocytes % (Auto) 4.1 % (1.0-12.0); Platelet Count 537 K/mcL (140-440); RBC 2.98 M/mcL (4.50-5.90); Red Cell Distribution Width 14.4 % (11.5-14.5)
[2016-11-19] MEDS ORDERED: methylPREDNISolone SOD SUCC 125 MG/2 ML VIAL IV SCH (06:00)
[2016-11-19] MEDS: WATER IV SCH ×2 (06:22→14:58)
[2016-11-19] MEDS: DEXTROSE 5% IV SCH ×2 (06:22→14:58)
[2016-11-19] MEDS: AZTREONAM IV SCH ×2 (06:22→14:58)
[2016-11-19 06:34] LABS: ALT/SGPT 7 U/l (0-40); Albumin 2.7 gm/dL (3.2-5.2); Albumin/Globulin Ratio 0.9 (1.0-2.3); Alkaline Phosphatase 146 U/L (39-117); Bilirubin,Direct 0.2 mg/dL (0.0-0.3); Blood Urea Nitrogen 10 mg/dl (8-23); Gamma Glutamyl Transpeptidase 186 U/L (8-61); Uric Acid 2.9 mg/dL (2.5-8.0)
[2016-11-19] MEDS: HYDROCODONE/APAP 7.5/325MG TABLET PO PRN ×2 (07:31→15:45)
[2016-11-19] MEDS: INSULIN LISPRO 1 UNIT/0.01 ML UNIT SQ SCH ×4 (08:53→21:19)
[2016-11-19] MEDS: methylPREDNISolone SOD SUCC 125 MG/2 ML VIAL IV SCH ×3 (08:56→21:25)
[2016-11-19] MEDS: POTASSIUM CHLORIDE 20 MEQ TABLET PO SCH ×2 (08:56→17:36)
[2016-11-19] MEDS ORDERED: MAGNESIUM HYDROXIDE 30 ML ORAL.SUSP PO PRN (09:30)
[2016-11-19] MEDS: HYDROCHLOROTHIAZIDE 12.5 MG CAPSULE PO SCH (09:34)
[2016-11-19] MEDS: traMADol 50 MG TABLET PO SCH (09:34)
[2016-11-19] MEDS: LISINOPRIL 20 MG TABLET PO SCH (09:34)
[2016-11-19] MEDS: PHENYTOIN SOD 100 MG CAPSULE PO SCH ×3 (09:35→21:18)
[2016-11-19] MEDS: cloNIDine HCL 0.1 MG TABLET PO SCH ×3 (09:35→21:19)
[2016-11-19] MEDS: LABETALOL 100 MG TABLET PO SCH ×3 (09:35→21:24)
[2016-11-19] MEDS: ENOXAPARIN 80 MG/0.8 ML SYRINGE SQ SCH (09:37)
[2016-11-19] MEDS: Solifenacin Succinate [Vesicare] 10 MG PO SCH (09:38)
[2016-11-19] MEDS: VANCOMYCIN 1,000 MG in 0.9 % SODIUM CHLORIDE 250 ML IV SCH ×2 (09:38→21:20)
[2016-11-19] MEDS: IPRATROPIUM/ALBUTEROL 3 ML AMPUL.NEB NEB SCH ×5 (09:44→22:27)
--- NOTE | 2016-11-19 11:04 | XRay Report ---
CLINICAL INFORMATION: Left lower lobe pneumonia with abscess COMPARISON: 11/17/2016 FINDINGS: Percutaneous pigtail drain in the left lower lobe abscess cavity in stable position. Moderate sized consolidated left lower lobe infiltrate and moderate effusion show slight progression. The heart is mildly enlarged, but unchanged. Aneurysm of the thoracic aortic arch demonstrates long-term stability. Mediastinum and pulmonary vessels are otherwise normal. Right lung well expanded and clear IMPRESSION: Moderate sized, consolidated left lower lobe infiltrate with moderate effusion - slight worsening from yesterday. Interpreted and Authenticated by: Antonio Fonseca 11/19/16
[2016-11-19] MEDS ORDERED: diphenhydrAMINE 50 MG/ML VIAL IV PRN (11:34)
[2016-11-19] MEDS ORDERED: CLINDAMYCIN 600 MG in DEXTROSE 5% IN WATER 50 ML IV SCH (12:00)
[2016-11-19] MEDS ORDERED: CILASTATIN SC ONE (13:00)
[2016-11-19] MEDS ORDERED: IMIPENEM SC ONE (13:00)
[2016-11-19] MEDS ORDERED: IOPAMIDOL 100 ML BOTTLE IJ ONE (13:49)
--- NOTE | 2016-11-19 14:45 | Cat Scan Report ---
CLINICAL INFORMATION: Follow-up left lower lobe pneumonia and abscess drainage. Increasing shortness of breath COMPARISON: Chest CT from 11/17/2016 TECHNIQUE: Axial images obtained through the chest. intravenous contrast administration was administered, and scanning was performed during pulmonary arterial phase. Sagittally and coronally reformatted images were obtained. MIP reformatted images. FINDINGS: Pulmonary parenchymal windows show the percutaneous drain in satisfactory position within the collapsed abscess cavity in the lateral basilar segment of the left lower lobe. There is now complete consolidated atelectasis/infiltrate of the entire left lower lobe and lingula. Left pleural effusion continues to increase in size and is now large with a 10 cm loculated component over the lateral left lower lobe. There is mild compressive atelectasis in the posterior left lower lobe due to the effusion. Moderate size alveolar infiltrate has developed in the posterior right upper lobe with smaller infiltrate involving the posterior right lower lobe. Underlying centrilobular emphysema changes are noted Mediastinal windows again show the saccular aneurysm of the descending thoracic aortic arch with associated dissection. The pulmonary arteries are unremarkable with optimal bolus opacification no evidence of embolus Heart is normal in size configuration. Few mildly enlarged lymph noted seen in the pericarinal and AP window region compatible with benign reactive adenopathy. The esophagus is grossly normal. The thyroid is normal. IMPRESSION: 1. Complete consolidation atelectasis/infiltrate of the entire left lower lobe and lingula - it has worsened from previous study. 2. Pigtail drain catheter remains in satisfactory position within the collapsed abscess cavity in the lateral segment left lower lobe 3. Moderate worsening of left pleural effusion now large loculated components left lower lobe. 4. New moderate sized alveolar infiltrate - posterior segment of the right upper lobe. Small infiltrate posterior right lower lobe 5. Mild centrilobular emphysema changes Interpreted and Authenticated by: Antonio Fonseca 11/19/16
--- NOTE | 2016-11-19 15:46 | Internal Med Progress Note ---
Medical - PN: Subj Patient information: Note initiated : 11/19/16 at 3:32 pm Service Date, if different from initiated Date: [] Patient: Jose R Rodríguez 71 y/o M admitted on 11/17/16 for Left Lower Abdominal Pain/Pneumonia, Sepsis. Chief Complaint: [] Interval history: Mr. Rodríguez is a 71 year old Male with h/o recent heminephrectomy on the right side for renal cell cancer. The source was done in AUGUST. By Dr. Rawls The patient had a CAT scan done at the end of SEPTEMBER showed a left lower lobe pneumonia with possible small effusion. According to the patient since then he has had multiple rounds of treatment with antibiotics. He was treated at [facility] with some antibiotics. I see from Dr. Rawls clinic note that he was also on Bactrimduring that time period. The patient has been seen in the ED twice here and has been given Zithromax for community-acquired pneumonia and bronchitis. The patient's x-rays has been showing left lower lobe pneumonia and possibly fluid. This time the patient complains of left sided chest pain as well as left-sided upper abdominal pain. This has been going on for the last 4 days, progressively getting worse, pain is sharp in nature, worse with respiration. Better with rest. She did have some chills but denies any fever. Cough with brownish sputum. Initially there may have been some blood in the sputum. pain is nonradiating. The patient presented to the ER with these symptoms, he had an elevated white blood cell count in the ED, normal creatinine, his sodium was 1:30. The patient had a CT of the abdomen and pelvis which showed loculated effusion in the left lower lobe as well as pneumonia in the left lower lobe. The patient will undergo a CAT scan guided drainage of this loculated effusion, possible abscess. I discussed the case with radiology. 11/18: patient and examined, events since admission reviewed. The patient underwent a left-sided pigtail catheter placement, by radiology. The patient tolerated the procedure well. However, later in the evening the patient developedpain in the left side of the chest initially was in the upper part of the chest and then slowly moved downwards. The patient was diaphoretic, tachypneic, had increased oxygen requirement and had elevated blood pressures. The patient underwent the x-ray of his chest which did not show any pneumothorax but did show increased fluid in the left lower lung. Given that he had elevated blood pressure, tachycardia and chest pain which was radiating down his history of aortic aneurysm in the thoracic aorta. We got a CT angiogram of the chest, abdomen and pelvis. This was negative for any dissection. However, it was read as a possible pulmonary embolism in the left upper lobe. Patient was started on Lovenox therapeutic dose for anticoagulation. I'm awaiting the opportunity from radiologist to determine if the patient clearly has a pulmonary embolism. The patient's condition stabilized after he received adequate pain management. The patient this morning notes that he had some nausea overnight but no other acute complaints. The pain is still there but not as bad as before. I reviewed with him the findings of the pleural fluid as well as the scans admitted overnight 11/19: Pt seen examined, patient still has some pain, but no new concerns. He is tolerating po ok, he was sob this AM with with increased oxygen requirement. Exam showed poor air entry, and júnior wheezing, started on steroids and duonebs. He also had CTA for PE and this was negative. will discontinue enoxaparin and start on sq insulin starting tomorrow. Discussed results with pt Pt has poor drain output, but has moderate effusion on the left side, may need repeat thoracocentesis to see if the effusion is infected too. Plan to get that done tomorrow after anticoagulation effect from lovenox is resolved. pain is ok controlled at this time, vitals are stable. The patient has skin itching with penicillin. He is presently growing gram positive cocci in chains, the patient culture is negative. but there is a suspicion for anaerobic infection. IV clindamycin started today. However given he will need around 4Weeks of IV ABX and he only has mild allergy to penicillin , we gave patient a test dose of imipenem. at 40 mins so far in the test there is no rash, itching or any adverse reaction. Plan to switch aztreonam and clinda to imipenum if patient test remains negative at 1 hr. GIven that he will be higher risk for CDiff with clindamycin. Pertinent ROS: Denies headache, dizziness lhas some cough and shortness of breath. left sided abdominal pain, no nausea and or vomiting.. - Constitutional Vitals: Vital Signs Temp Pulse Resp BP Pulse Ox 98 F 90 22 146/91 91 11/19/16 15:00 11/19/16 15:17 11/19/16 15:17 11/19/16 15:00 11/19/16 15:00 Period Temp Pulse Resp BP Sys/Ahumada Pulse Ox Last 24 Hr 98 F-99.7 F 80-103 15-28 106-166/58-91 91-97 Intake and Output 11/19/16 11/19/16 11/19/16 05:59 13:59 21:59 Intake Total 1500 / 1500 694 / 694 240 / 240 Output Total 205 / 205 225 / 225 Balance 1295 / 1295 469 / 469 240 / 240 Intake & Output: Intake & Output 11/19/16 11/19/16 11/19/16 05:59 13:59 21:59 Intake Total 1500 / 1500 694 / 694 240 / 240 Output Total 205 / 205 225 / 225 Balance 1295 / 1295 469 / 469 240 / 240 Intake: IV 1300 / 1300 354 / 354 Sodium Chloride 0.9% 1, 1000 / 1000 000 ml @ 100 mls/hr IV . Q10H [facility] Rx#:[id number] Azactam 2 gm In Dextrose 50 / 50 50 / 50 5% in Water 50 ml @ 100 mls/hr IV Q8H [facility] Rx#: [id number] Cleocin 600 mg In 54 / 54 Dextrose 5% in Water 50 ml @ 100 mls/hr IV Q8H [facility] Rx#:[id number] Vancomycin 1,000 mg In 250 / 250 250 / 250 Sodium Chloride 0.9% 250 ml @ 250 mls/hr IV Q12H [facility] Rx#:[id number] Oral 200 / 200 220 / 220 240 / 240 GI Tube Flush 120 / 120 Output: Drainage 4 / 4 left lateral midback 4 / 4 Urine Catheter Amount 125 / 125 Void Amount 200 / 200 100 / 100 Uretheral (Lyle) 100 / 100 # of times incontinent of 1 / 1 urine Other: Meal Nourishment/Supplement Lunch Percent of Meal Consumed 100% 75% Feeding Ability Independent Independent # Bowel Movements 1 1 # of times incontinent of 1 Bowels Exam: Constitutional; Afebrile, cooperative, alert, not in distress. Eyes- No icterus, , No periorbital swelling Ears- Ext ear normal, hearing normal to conversation. Neck- Midline trachea, supple Respiratory system: Air Entry decreased on left base, bronchial breath sounds, júnior prolonged exp, júnior wheezing noted. CVS- Rate tachycardic rhythm regular, S1,S2 heard, no gallop, no rub. Abdomen- Soft nontender abdomen, no organomegaly, no tenderness, no guarding or rigidity, [employer]- AOOx3, moving all extremities, no gross focal deficit noted. Medical - PN: Obj Da - Labs CBC & Chem 7: 11/19/16 04:59 11/19/16 04:59 Labs: Abnormal Lab Results 11/19/16 11/19/16 11/18/16 04:59 04:59 07:38 WBC 21.3 H RBC 2.98 L Hgb 9.0 L Hct 26.0 L Plt Count 537 H MPV 7.0 L Gran % 89.8 H Lymph % (Auto) 4.6 L Gran # 19.1 H Lymph # (Auto) 1.0 L APTT Sodium 131 L 131 L Chloride 93 L Carbon Dioxide 20 L BUN 7 L Creatinine 0.5 L 0.5 L Glucose 153 H 152 H Uric Acid 2.3 L Calcium 8.1 L 8.1 L Direct Bilirubin 0.4 H GGT 186 H 207 H Alkaline Phosphatase 146 H 142 H Total Protein 5.8 L Albumin 2.7 L 2.9 L Albumin/Globulin Ratio 0.9 L 0.9 L 11/18/16 11/17/16 07:38 14:15 WBC 26.7 H RBC 3.34 L Hgb 10.1 L Hct 29.1 L Plt Count 560 H MPV 7.0 L Gran % 93.2 H Lymph % (Auto) 3.1 L Gran # 24.9 H Lymph # (Auto) 0.8 L APTT 63 H Sodium Chloride Carbon Dioxide BUN Creatinine Glucose Uric Acid Calcium Direct Bilirubin GGT Alkaline Phosphatase Total Protein Albumin Albumin/Globulin Ratio Meds: Medications Acetaminophen (Tylenol) 650 mg PO Q6HP PRN PRN Reason: PAIN/FEVER > 101 Hydrocodone Bitart/Acetaminophen ([place] 7.5/325mg) 1 - 2 tab PO Q6HP PRN PRN Reason: Pain Last Admin: 11/19/16 07:31 Dose: 1 tab Albuterol/Ipratropium (Duoneb) 3 ml NEB Q4HRT [facility] Last Admin: 11/19/16 15:16 Dose: 3 ml Clonidine HCl (Catapres) 0.1 mg PO Q4HP PRN PRN Reason: Hypertension Last Admin: 11/18/16 04:17 Dose: 0.1 mg Clonidine HCl (Catapres) 0.2 mg PO TID [facility] Last Admin: 11/19/16 14:42 Dose: 0.2 mg Dextrose (Dextrose 50%) 0 ml IV UD PRN PRN Reason: Hypoglycemia Diagnostic Test (Pha) (Accu-Chek) 1 each FS ACHS [facility] Last Admin: 11/19/16 11:44 Dose: 1 each Diphenhydramine HCl (Benadryl) 50 mg IV Q4-6HP PRN PRN Reason: Allergic Symptoms Glucose (Insta-Glucose) 15 gm PO PRN PRN PRN Reason: Hypoglycemia Heparin Sodium (Porcine) (Heparin) 5,000 unit SQ Q12 [facility] Hydralazine HCl (Apresoline) 10 mg IV Q4-6HP PRN PRN Reason: Hypertension Hydrochlorothiazide (Oretic) 12.5 mg PO DAILY [facility] Last Admin: 11/19/16 09:34 Dose: 12.5 mg Hydromorphone HCl (Dilaudid) 0.5 mg IV Q2HP PRN PRN Reason: Pain Last Admin: 11/19/16 13:19 Dose: 0.5 mg Aztreonam 2 gm/ Dextrose 50 mls @ 100 mls/hr IV Q8H [facility] Last Admin: 11/19/16 14:58 Dose: 100 mls/hr Vancomycin HCl 1,000 mg/ (Sodium Chloride) 250 mls @ 250 mls/hr IV Q12H [facility] Last Infusion: 11/19/16 11:00 Dose: Infused Clindamycin Phosphate 600 mg/ (Dextrose) 54 mls @ 100 mls/hr IV Q8H [facility] Last Infusion: 11/19/16 13:07 Dose: Infused Insulin Human Lispro (Humalog) 0 unit SQ [facility] PRN Reason: Protocol Last Admin: 11/19/16 12:34 Dose: 3 unit Labetalol HCl (Trandate) 300 mg PO TID [facility] Last Admin: 11/19/16 14:42 Dose: 300 mg Lisinopril (Zestril) 20 mg PO DAILY [facility] Last Admin: 11/19/16 09:34 Dose: 20 mg Magnesium Hydroxide (Milk Of Magnesia) 30 ml PO DAILYP PRN PRN Reason: Constipation Last Admin: 11/19/16 09:40 Dose: 30 ml Methylprednisolone Sodium Succinate (Solu-Medrol) 62.5 mg IV Q8 [facility] Last Admin: 11/19/16 14:42 Dose: 62.5 mg Naloxone HCl (Narcan) 0.1 mg IV Q2MIN PRN PRN Reason: Opiate Reversal Solifenacin Succinate [Vesicare] 10 Mg 5 mg PO DAILY [facility] Last Admin: 11/19/16 09:38 Dose: 5 mg Ondansetron HCl (Zofran) 4 mg IV Q6HP PRN PRN Reason: Nausea And Vomiting Last Admin: 11/19/16 04:53 Dose: 4 mg Phenytoin Sodium (Dilantin) 300 mg PO TID [facility] Last Admin: 11/19/16 14:42 Dose: 300 mg Potassium Chloride (Kdur) 20 meq PO BIDCC [facility] Last Admin: 11/19/16 08:56 Dose: 20 meq Prazosin HCl (Minipress) 2 mg PO HS [facility] Last Admin: 11/18/16 21:14 Dose: 2 mg Sodium Chloride (Saline Flush) 10 ml IV Q8 [facility] Last Admin: 11/19/16 14:48 Dose: 10 ml Tamsulosin HCl (Flomax) 0.4 mg PO HS [facility] Last Admin: 11/18/16 21:13 Dose: 0.4 mg Tramadol HCl (Ultram) 50 mg PO DAILY [facility] Last Admin: 11/19/16 09:34 Dose: 50 mg Trazodone HCl (Desyrel) 25 mg PO HSP PRN PRN Reason: Insomnia Vancomycin HCl (Vancomycin Per Pharmacy) 1 order IV UD [facility] Medical - PN: A/P - Time Spent With Patient Total time spent is greater than 50% in coordination of care (as documented) at patient's floor/unit and/or counseling patient: - Narrative A/P Narrative: A/P Lung Abscess/ Empyema: empyema, gpc, but likely anaerobes, IV clinda added today , plan to switch to imipenum if remains neg. Skin testing to be done. Plan to do US guided drain tomorrow to see if the remainder fluid is infected too. Pneumonia: HCAP pna, IV vancomycin and IV aztreonam. wbc improving, anaerobic abscess? PNA is worsening, switch to imipenum if skin test is neg. Sepsis: stable patient. still ahs wbc but overall seems stable at this time. Pulmonary Embolism: Possible pe noted on CTA done for aortic aneurysm, CTA for pulmonary embolus is negative today, d/c lovenox. Chest pain Acute: Due to pig tail cath placement. Pain management with home meds and IV dilaudid. DM: hold home meds, Sliding scale insulin HTN: stable, Resume home meds, adequate pain management and monitor. Renal Cell Ca: s/p Surgery, FB in abdomen: Noted on Ct, no acute issue, discussed with Dr Rawls, likely a sharpnel, not related to nephrectomy. h/o Seizures: on dilantin, last seizure 2001, levels therapetuic, Chr pain: Resume home pain meds, IV dialudid prn for acute pain (new chest tube / drain) Aortic Aneurysm: Medical management as per home regime,no e/o dissection. Drug abuse/ Etoh abuse: patient denies same, but Prob list mentions substance abuse, he admits to use of THC. DVT hep sq. Diet Diabetic Cardiac diet Code Status DNR Medical - PN: Qual - VTE Deep Vein Thrombosis/Pulmonary Embolism Present on Admission: No
[2016-11-19] MEDS: IMIPENEM/CILASTATIN SODIUM 1,000 MG in 0.9 % SODIUM CHLORIDE 250 ML IV SCH ×2 (17:36→23:18)
[2016-11-19] MEDS: TAMSULOSIN 0.4 MG CAPSULE PO SCH (21:18)
[2016-11-19] MEDS: PRAZOSIN 1 MG CAPSULE PO SCH (21:19)
[2016-11-20] MEDS: IPRATROPIUM/ALBUTEROL 3 ML AMPUL.NEB NEB SCH ×6 (02:34→23:23)
[2016-11-20] MEDS: HYDROmorphone 2 MG/ML SYRINGE IV PRN ×3 (02:38→20:29)
[2016-11-20] MEDS: methylPREDNISolone SOD SUCC 125 MG/2 ML VIAL IV SCH ×3 (05:33→22:02)
[2016-11-20] MEDS: IMIPENEM/CILASTATIN SODIUM 1,000 MG in 0.9 % SODIUM CHLORIDE 250 ML IV SCH ×3 (05:34→23:20)
[2016-11-20] MEDS: 0.9 % SODIUM CHLORIDE 10 ML SYRINGE IV SCH ×7 (05:34→21:58)
[2016-11-20] MEDS: HYDROCODONE/APAP 7.5/325MG TABLET PO PRN ×3 (05:35→21:50)
[2016-11-20 06:30] LABS: Basophils # (Auto) 0 K/mcL (0.0-0.3); Basophils % (Auto) 0.1 % (0.0-2.0); Eosinophils # (Auto) 0.1 K/mcL (0.0-0.7); Eosinophils % (Auto) 0.4 % (0.0-7.0); Granulocytes % (Auto) 90.8 % (38.0-78.0); Lymphocytes # (Auto) 0.7 K/mcL (1.5-4.8); Mean Cell Volume 90.5 fL (80.0-100.0); Mean Corpuscular HGB Conc 32.8 g/dL (31.0-36.0); Mean Corpuscular Hemoglobin 29.7 pg (26.0-34.0); Monocytes # (Auto) 0.8 K/mcL (0.1-0.9); Monocytes % (Auto) 4.7 % (1.0-12.0); Platelet Count 502 K/mcL (140-440); RBC 2.81 M/mcL (4.50-5.90); Red Cell Distribution Width 15.3 % (11.5-14.5)
[2016-11-20 07:01] LABS: ALT/SGPT 7 U/l (0-40); Albumin 2.6 gm/dL (3.2-5.2); Albumin/Globulin Ratio 0.8 (1.0-2.3); Alkaline Phosphatase 126 U/L (39-117); Bilirubin,Direct < 0.2 mg/dL (0.0-0.3); Blood Urea Nitrogen 11 mg/dl (8-23); Gamma Glutamyl Transpeptidase 161 U/L (8-61)
[2016-11-20] MEDS ORDERED: FUROSEMIDE 40 MG/4 ML VIAL IV ONE (08:00)
[2016-11-20] MEDS: POTASSIUM CHLORIDE 20 MEQ TABLET PO SCH ×2 (08:14→17:22)
[2016-11-20] MEDS: INSULIN LISPRO 1 UNIT/0.01 ML UNIT SQ SCH ×5 (08:16→21:49)
[2016-11-20] MEDS ORDERED: HEPARIN 5,000 UNIT/ML VIAL SQ SCH (09:00)
--- NOTE | 2016-11-20 09:04 | Internal Med Progress Note ---
Medical - PN: Subj Patient information: Note initiated : 11/20/16 at 9:01 am Service Date, if different from initiated Date: [] Patient: Jose R Rodríguez 71 y/o M admitted on 11/17/16 for Left Lower Abdominal Pain/Pneumonia, Sepsis. Chief Complaint: [] Interval history: Mr. Rodríguez is a 71 year old Male with h/o recent heminephrectomy on the right side for renal cell cancer. The source was done in AUGUST. By Dr. Rawls The patient had a CAT scan done at the end of SEPTEMBER showed a left lower lobe pneumonia with possible small effusion. According to the patient since then he has had multiple rounds of treatment with antibiotics. He was treated at [facility] with some antibiotics. I see from Dr. Rawls clinic note that he was also on Bactrimduring that time period. The patient has been seen in the ED twice here and has been given Zithromax for community-acquired pneumonia and bronchitis. The patient's x-rays has been showing left lower lobe pneumonia and possibly fluid. This time the patient complains of left sided chest pain as well as left-sided upper abdominal pain. This has been going on for the last 4 days, progressively getting worse, pain is sharp in nature, worse with respiration. Better with rest. She did have some chills but denies any fever. Cough with brownish sputum. Initially there may have been some blood in the sputum. pain is nonradiating. The patient presented to the ER with these symptoms, he had an elevated white blood cell count in the ED, normal creatinine, his sodium was 1:30. The patient had a CT of the abdomen and pelvis which showed loculated effusion in the left lower lobe as well as pneumonia in the left lower lobe. The patient will undergo a CAT scan guided drainage of this loculated effusion, possible abscess. I discussed the case with radiology. 11/18: patient and examined, events since admission reviewed. The patient underwent a left-sided pigtail catheter placement, by radiology. The patient tolerated the procedure well. However, later in the evening the patient developedpain in the left side of the chest initially was in the upper part of the chest and then slowly moved downwards. The patient was diaphoretic, tachypneic, had increased oxygen requirement and had elevated blood pressures. The patient underwent the x-ray of his chest which did not show any pneumothorax but did show increased fluid in the left lower lung. Given that he had elevated blood pressure, tachycardia and chest pain which was radiating down his history of aortic aneurysm in the thoracic aorta. We got a CT angiogram of the chest, abdomen and pelvis. This was negative for any dissection. However, it was read as a possible pulmonary embolism in the left upper lobe. Patient was started on Lovenox therapeutic dose for anticoagulation. I'm awaiting the opportunity from radiologist to determine if the patient clearly has a pulmonary embolism. The patient's condition stabilized after he received adequate pain management. The patient this morning notes that he had some nausea overnight but no other acute complaints. The pain is still there but not as bad as before. I reviewed with him the findings of the pleural fluid as well as the scans admitted overnight 11/19: Pt seen examined, patient still has some pain, but no new concerns. He is tolerating po ok, he was sob this AM with with increased oxygen requirement. Exam showed poor air entry, and júnior wheezing, started on steroids and duonebs. He also had CTA for PE and this was negative. will discontinue enoxaparin and start on sq insulin starting tomorrow. Discussed results with pt Pt has poor drain output, but has moderate effusion on the left side, may need repeat thoracocentesis to see if the effusion is infected too. Plan to get that done tomorrow after anticoagulation effect from lovenox is resolved. pain is ok controlled at this time, vitals are stable. The patient has skin itching with penicillin. He is presently growing gram positive cocci in chains, the patient culture is negative. but there is a suspicion for anaerobic infection. IV clindamycin started today. However given he will need around 4Weeks of IV ABX and he only has mild allergy to penicillin , we gave patient a test dose of imipenem. at 40 mins so far in the test there is no rash, itching or any adverse reaction. Plan to switch aztreonam and clinda to imipenum if patient test remains negative at 1 hr. GIven that he will be higher risk for CDiff with clindamycin. 11/20: Pt seen examined, no acute overnight events, still has some pain, but much more relaxed this AM, tolerating PO diet well, still on 6L oxygen. The patient is not liking his bp cuff inflating every hour. The patient had successful skin test of imipenum and has been switched over to this medication to cover for gram neg and anaerobic infection. Plan to continue IV abx, get US guided thoracocentesis, continue duonebs and steroids (still has wheezing), he is positive > 8000ml, give one dose of lasix today. Pertinent ROS: Denies headache, dizziness stable chest pain, no palpitations Denies cough , has some shortness of breath has left side abdominal pain, stable. no nausea and or vomiting. - Constitutional Vitals: Vital Signs Temp Pulse Resp BP Pulse Ox 98.8 F 96 H 19 160/83 92 11/20/16 07:01 11/20/16 07:01 11/20/16 07:01 11/20/16 07:01 11/20/16 07:01 Period Temp Pulse Resp BP Sys/[place]umada Pulse Ox Last 24 Hr 97.6 F-98.8 F 78-103 13-27 104-166/63-91 90-97 Intake and Output 11/19/16 11/20/16 11/20/16 21:59 05:59 13:59 Intake Total 1480 / 1480 500 / 500 250 / 250 Output Total 281 / 281 660 / 660 900 / 900 Balance 1199 / 1199 -160 / -160 -650 / -650 Weight 185 lb 9.6 oz Intake & Output: Intake & Output 11/19/16 11/20/16 11/20/16 21:59 05:59 13:59 Intake Total 1480 / 1480 500 / 500 250 / 250 Output Total 281 / 281 660 / 660 900 / 900 Balance 1199 / 1199 -160 / -160 -650 / -650 Weight 185 lb 9.6 oz Intake: IV 300 / 300 500 / 500 250 / 250 Primaxin 1,000 mg In 250 / 250 250 / 250 250 / 250 Sodium Chloride 0.9% 250 ml @ 250 mls/hr IV Q8H [facility] Rx#:[id number] Vancomycin 1,000 mg In 250 / 250 Sodium Chloride 0.9% 250 ml @ 250 mls/hr IV Q12H [facility] Rx#:[id number] Oral 820 / 820 GI Tube Flush 360 / 360 Output: Drainage left lateral midback Urine Catheter Amount 275 / 275 650 / 650 900 / 900 Other: Meal Dinner Percent of Meal Consumed 100% Feeding Ability Independent # Bowel Movements 1 1 Exam: Constitutional; Afebrile, cooperative, alert, not in distress. Eyes- No icterus, , No periorbital swelling Ears- Ext ear normal, hearing normal to conversation. Neck- Midline trachea, supple Respiratory system: Air Entry equal on both sides, júnior exp wheezing. CVS- Rate rhythm regular, S1,S2 heard, no gallop, no rub. Abdomen- Soft nontender abdomen, no organomegaly, no tenderness, no guarding or rigidity, [employer]- AOOx3, moving all extremities, no gross focal deficit noted. Medical - PN: Obj Da - Labs CBC & Chem 7: 11/20/16 03:45 11/20/16 03:45 Labs: Abnormal Lab Results 11/20/16 11/20/16 11/19/16 03:45 03:45 04:59 WBC 17.2 H RBC 2.81 L Hgb 8.3 L Hct 25.4 L RDW 15.3 H Plt Count 502 H MPV 6.7 L Gran % 90.8 H Lymph % (Auto) 4.0 L Gran # 15.6 H Lymph # (Auto) 0.7 L APTT Sodium 130 L 131 L Chloride Carbon Dioxide 21 L 20 L BUN Creatinine 0.4 L 0.5 L Glucose 156 H 153 H Uric Acid Calcium 8.2 L 8.1 L Phosphorus 2.2 L Direct Bilirubin GGT 161 H 186 H Alkaline Phosphatase 126 H 146 H Total Protein 5.7 L 5.8 L Albumin 2.6 L 2.7 L Albumin/Globulin Ratio 0.8 L 0.9 L 11/19/16 11/18/16 11/18/16 04:59 07:38 07:38 WBC 21.3 H 26.7 H RBC 2.98 L 3.34 L Hgb 9.0 L 10.1 L Hct 26.0 L 29.1 L RDW Plt Count 537 H 560 H MPV 7.0 L 7.0 L Gran % 89.8 H 93.2 H Lymph % (Auto) 4.6 L 3.1 L Gran # 19.1 H 24.9 H Lymph # (Auto) 1.0 L 0.8 L APTT Sodium 131 L Chloride 93 L Carbon Dioxide BUN 7 L Creatinine 0.5 L Glucose 152 H Uric Acid 2.3 L Calcium 8.1 L Phosphorus Direct Bilirubin 0.4 H GGT 207 H Alkaline Phosphatase 142 H Total Protein Albumin 2.9 L Albumin/Globulin Ratio 0.9 L 11/17/16 14:15 WBC RBC Hgb Hct RDW Plt Count MPV Gran % Lymph % (Auto) Gran # Lymph # (Auto) APTT 63 H Sodium Chloride Carbon Dioxide BUN Creatinine Glucose Uric Acid Calcium Phosphorus Direct Bilirubin GGT Alkaline Phosphatase Total Protein Albumin Albumin/Globulin Ratio Meds: Medications Acetaminophen (Tylenol) 650 mg PO Q6HP PRN PRN Reason: PAIN/FEVER > 101 Hydrocodone Bitart/Acetaminophen ([place] 7.5/325mg) 1 - 2 tab PO Q6HP PRN PRN Reason: Pain Last Admin: 11/20/16 05:35 Dose: 1 tab Albuterol/Ipratropium (Duoneb) 3 ml NEB Q4HRT [facility] Last Admin: 11/20/16 06:41 Dose: 3 ml Clonidine HCl (Catapres) 0.1 mg PO Q4HP PRN PRN Reason: Hypertension Last Admin: 11/18/16 04:17 Dose: 0.1 mg Clonidine HCl (Catapres) 0.2 mg PO TID [facility] Last Admin: 11/19/16 21:19 Dose: 0.2 mg Dextrose (Dextrose 50%) 0 ml IV UD PRN PRN Reason: Hypoglycemia Diagnostic Test (Pha) (Accu-Chek) 1 each FS ACHS [facility] Last Admin: 11/20/16 07:10 Dose: 1 each Diphenhydramine HCl (Benadryl) 50 mg IV Q4-6HP PRN PRN Reason: Allergic Symptoms Glucose (Insta-Glucose) 15 gm PO PRN PRN PRN Reason: Hypoglycemia Heparin Sodium (Porcine) (Heparin) 5,000 unit SQ Q12 [facility] Hydralazine HCl (Apresoline) 10 mg IV Q4-6HP PRN PRN Reason: Hypertension Hydrochlorothiazide (Oretic) 12.5 mg PO DAILY [facility] Last Admin: 11/19/16 09:34 Dose: 12.5 mg Hydromorphone HCl (Dilaudid) 0.5 mg IV Q2HP PRN PRN Reason: Pain Last Admin: 11/20/16 02:38 Dose: 0.5 mg Vancomycin HCl 1,000 mg/ (Sodium Chloride) 250 mls @ 250 mls/hr IV Q12H [facility] Last Infusion: 11/19/16 22:20 Dose: Infused Imipenem/Cilastatin Sodium 1, (000 mg/ Sodium Chloride) 250 mls @ 250 mls/hr IV Q8H [facility] Last Infusion: 11/20/16 08:21 Dose: Infused Insulin Human Lispro (Humalog) 0 unit SQ ACHS [facility] PRN Reason: Protocol Last Admin: 11/20/16 08:16 Dose: Not Given Labetalol HCl (Trandate) 300 mg PO TID [facility] Last Admin: 11/19/16 21:24 Dose: 300 mg Lisinopril (Zestril) 20 mg PO DAILY [facility] Last Admin: 11/19/16 09:34 Dose: 20 mg Magnesium Hydroxide (Milk Of Magnesia) 30 ml PO DAILYP PRN PRN Reason: Constipation Last Admin: 11/19/16 09:40 Dose: 30 ml Methylprednisolone Sodium Succinate (Solu-Medrol) 62.5 mg IV Q8 [facility] Last Admin: 11/20/16 05:33 Dose: 62.5 mg Naloxone HCl (Narcan) 0.1 mg IV Q2MIN PRN PRN Reason: Opiate Reversal Solifenacin Succinate [Vesicare] 10 Mg 5 mg PO DAILY [facility] Last Admin: 11/19/16 09:38 Dose: 5 mg Ondansetron HCl (Zofran) 4 mg IV Q6HP PRN PRN Reason: Nausea And Vomiting Last Admin: 11/19/16 04:53 Dose: 4 mg Phenytoin Sodium (Dilantin) 300 mg PO TID [facility] Last Admin: 11/19/16 21:18 Dose: 300 mg Potassium Chloride (Kdur) 20 meq PO BIDCC [facility] Last Admin: 11/20/16 08:14 Dose: 20 meq Prazosin HCl (Minipress) 2 mg PO HS [facility] Last Admin: 11/19/16 21:19 Dose: 2 mg Sodium Chloride (Saline Flush) 10 ml IV Q8 [facility] Last Admin: 11/20/16 08:18 Dose: 10 ml Tamsulosin HCl (Flomax) 0.4 mg PO HS [facility] Last Admin: 11/19/16 21:18 Dose: 0.4 mg Tramadol HCl (Ultram) 50 mg PO DAILY [facility] Last Admin: 11/19/16 09:34 Dose: 50 mg Trazodone HCl (Desyrel) 25 mg PO HSP PRN PRN Reason: Insomnia Vancomycin HCl (Vancomycin Per Pharmacy) 1 order IV UD [facility] Medical - PN: A/P - Time Spent With Patient Total time spent is greater than 50% in coordination of care (as documented) at patient's floor/unit and/or counseling patient: - Narrative A/P Narrative: A/P Lung Abscess/ Empyema: empyema, gpc, but likely anaerobes, IV imipenum and vancomycin for now, monitor. US guided thoracocentesis today. Pneumonia: HCAP pna, IV vancomycin and IV imipenum, monitor response, pt seems better today. Sepsis: stable patient. on appropriate abx, hemodynamically stable. Pulmonary Embolism: neg PE on repeat SCan, d/c lovenox. Chest pain Acute: Due to pig tail cath placement. Pain management with home meds and IV dilaudid. DM: hold home meds, Sliding scale insulin HTN: stable, Resume home meds, adequate pain management and monitor. Renal Cell Ca: s/p Surgery, FB in abdomen: Noted on Ct, no acute issue, discussed with Dr Rawls, likely a sharpnel, not related to nephrectomy. h/o Seizures: on dilantin, last seizure 2001, levels therapetuic, Chr pain: Resume home pain meds, IV dialudid prn for acute pain (new chest tube / drain) Aortic Aneurysm: Medical management as per home regime,no e/o dissection. Drug abuse/ Etoh abuse: patient denies same, but Prob list mentions substance abuse, he admits to use of THC. DVT hep sq. Diet Diabetic Cardiac diet Code Status DNR Medical - PN: Qual - VTE Deep Vein Thrombosis/Pulmonary Embolism Present on Admission: No
[2016-11-20] MEDS: LABETALOL 100 MG TABLET PO SCH ×3 (09:06→21:55)
[2016-11-20] MEDS: HYDROCHLOROTHIAZIDE 12.5 MG CAPSULE PO SCH (09:10)
[2016-11-20] MEDS: cloNIDine HCL 0.1 MG TABLET PO SCH ×3 (09:10→21:49)
[2016-11-20] MEDS: PHENYTOIN SOD 100 MG CAPSULE PO SCH ×3 (09:11→21:51)
[2016-11-20] MEDS: LISINOPRIL 20 MG TABLET PO SCH (09:11)
[2016-11-20] MEDS: traMADol 50 MG TABLET PO SCH (09:11)
[2016-11-20] MEDS: Solifenacin Succinate [Vesicare] 10 MG PO SCH (09:21)
[2016-11-20] MEDS: VANCOMYCIN 1,000 MG in 0.9 % SODIUM CHLORIDE 250 ML IV SCH ×2 (09:32→21:52)
[2016-11-20] MEDS ORDERED: ONDANSETRON 4 MG/2 ML VIAL IV PRN (11:39)
[2016-11-20] MEDS ORDERED: ACETAMINOPHEN 325 MG TABLET PO PRN (11:39)
[2016-11-20] MEDS ORDERED: DEXTROSE 31 GM ORAL.SUSP PO PRN (11:39)
[2016-11-20] MEDS ORDERED: VANCOMYCIN PER PHARMACY IV SCH (11:39)
[2016-11-20] MEDS ORDERED: diphenhydrAMINE 50 MG/ML VIAL IV PRN (11:39)
[2016-11-20] MEDS ORDERED: NALOXONE HCL 0.4 MG/ML VIAL IV PRN (11:39)
[2016-11-20] MEDS ORDERED: traZODone HCL 50 MG TABLET PO PRN (11:39)
[2016-11-20] MEDS ORDERED: cloNIDine HCL 0.1 MG TABLET PO PRN (11:39)
[2016-11-20] MEDS ORDERED: MAGNESIUM HYDROXIDE 30 ML ORAL.SUSP PO PRN (11:39)
[2016-11-20] MEDS ORDERED: DEXTROSE 50% 50 ML VIAL IV PRN (11:39)
[2016-11-20 12:34] LABS: pH,Body Fluid 7.46
--- NOTE | 2016-11-20 13:07 | Ultrasound Report ---
CLINICAL INFORMATION: Left lower lobe pneumonia with abscess complication. Moderate left pleural effusion which is increased TECHNIQUE: The procedure and risks including possibility of bleeding, infection and pneumothorax were explained the patient. He understood and wished to proceed. With the patient in upright position, the fluid was ultrasound localized over the posterior left 10th intercostal space and posterior axillary line. The skin was marked, prepped and locally anesthetized to the level of the parietal pleura using 1% lidocaine and a 25-gauge needle. An 18-gauge Perfect Eartheh needle was placed in the fluid under sonographic guidance and 800 cc of transudative appearing fluid or aspirated and sent for requested studies. Postprocedure scanning shows minimal residual fluid. No apparent complication. IMPRESSION: Successful left thoracentesis yielding 800 cc of transudative appearing fluid. There is no overt evidence for empyema. Results are pending. Post procedure scanning shows no residual fluid. No apparent complication. Interpreted and Authenticated by: Antonio Fonseca 11/20/16
--- NOTE | 2016-11-20 14:46 | XRay Report ---
CLINICAL INFORMATION: Hypoxia COMPARISON: 11/19/2016 FINDINGS: Moderate cardiomegaly is unchanged. Aneurysm of the thoracic aortic arch demonstrates long-term stability. Moderate sized consolidated atelectasis/infiltrate entire left lower lobe and lingula and moderate left pleural effusion is unchanged. A new moderate-sized right perihilar infiltrate as developed IMPRESSION: Moderate consolidation atelectasis/infiltrate in the entire left lower lobe and lingula and moderate left pleural effusion. No significant change. New moderate right perihilar infiltrate Percutaneous drainage tube in the known left lower lobe abscess cavity is in stable position Interpreted and Authenticated by: Antonio Fonseca 11/20/16
--- NOTE | 2016-11-20 14:47 | XRay Report ---
CLINICAL INFORMATION: Left lower lung pneumonia and abscess post thoracentesis COMPARISON: None. FINDINGS: Following thoracentesis, only a small left pleural effusion remains. Densely consolidated with atelectasis/infiltrate in the left lower lobe and lingula shows slight improvement. Smaller patchy right perihilar infiltrate is unchanged. Moderate cardiomegaly stable. Aneurysm of the thoracic aortic arch seen as before. Pulmonary vessels are normal IMPRESSION: 1. Following left thoracentesis, only small residual left pleural effusion. No pneumothorax or other complication. 2. Moderate consolidation atelectasis/infiltrate of the left lower lobe and lingula shows improvement 3. Small vague right perihilar infiltrate - stable Interpreted and Authenticated by: Antonio Fonseca 11/20/16
[2016-11-20 19:51] LABS: ALT/SGPT 8 U/l (0-40); Albumin 2.6 gm/dL (3.2-5.2); Albumin/Globulin Ratio 0.8 (1.0-2.3); Alkaline Phosphatase 131 U/L (39-117); Bilirubin,Direct < 0.2 mg/dL (0.0-0.3); Blood Urea Nitrogen 10 mg/dl (8-23); Gamma Glutamyl Transpeptidase 172 U/L (8-61); Magnesium 1.8 mg/dL (1.6-2.5); Uric Acid 3.2 mg/dL (2.5-8.0)
[2016-11-20] MEDS: TAMSULOSIN 0.4 MG CAPSULE PO SCH (21:50)
[2016-11-20] MEDS: HEPARIN 5,000 UNIT/ML VIAL SQ SCH (21:51)
[2016-11-20] MEDS: PRAZOSIN 1 MG CAPSULE PO SCH (21:52)
[2016-11-20] MEDS ORDERED: POTASSIUM PHOSPHATE 40 MEQ in DEXTROSE 5% IN WATER 500 ML IV ONE (22:26)
[2016-11-20] MEDS ORDERED: POTASSIUM PHOSPHATE 66 MEQ/15 ML VIAL IV ONE (23:07)
[2016-11-21] MEDS ORDERED: LORazepam 2 MG/ML VIAL IV ONE (02:00)
[2016-11-21] MEDS ORDERED: LORazepam 2 MG/ML VIAL ONE ×2 (02:06→04:01)
[2016-11-21] MEDS: IPRATROPIUM/ALBUTEROL 3 ML AMPUL.NEB NEB SCH ×6 (03:21→22:39)
[2016-11-21] MEDS ORDERED: LORazepam 2 MG/ML VIAL IV PRN (03:55)
[2016-11-21 05:07] LABS: Basophils # (Auto) 0 K/mcL (0.0-0.3); Basophils % (Auto) 0.3 % (0.0-2.0); Eosinophils # (Auto) 0 K/mcL (0.0-0.7); Eosinophils % (Auto) 0.1 % (0.0-7.0); Granulocytes % (Auto) 89.3 % (38.0-78.0); Lymphocytes # (Auto) 0.7 K/mcL (1.5-4.8); Lymphocytes % (Auto) 4.9 % (15.5-49.0); Mean Cell Volume 88.6 fL (80.0-100.0); Mean Corpuscular HGB Conc 32.6 g/dL (31.0-36.0); Mean Corpuscular Hemoglobin 28.8 pg (26.0-34.0); Monocytes # (Auto) 0.8 K/mcL (0.1-0.9); Monocytes % (Auto) 5.4 % (1.0-12.0); Platelet Count 480 K/mcL (140-440); RBC 3.05 M/mcL (4.50-5.90); Red Cell Distribution Width 15.1 % (11.5-14.5)
[2016-11-21 05:25] LABS: ALT/SGPT 8 U/l (0-40); Albumin 2.6 gm/dL (3.2-5.2); Albumin/Globulin Ratio 0.9 (1.0-2.3); Alkaline Phosphatase 118 U/L (39-117); Bilirubin,Direct < 0.2 mg/dL (0.0-0.3); Blood Urea Nitrogen 9 mg/dl (8-23); Gamma Glutamyl Transpeptidase 156 U/L (8-61); Magnesium 1.7 mg/dL (1.6-2.5); Uric Acid 2.9 mg/dL (2.5-8.0)
[2016-11-21] MEDS: IMIPENEM/CILASTATIN SODIUM 1,000 MG in 0.9 % SODIUM CHLORIDE 250 ML IV SCH ×3 (05:27→22:03)
[2016-11-21] MEDS: methylPREDNISolone SOD SUCC 125 MG/2 ML VIAL IV SCH ×3 (05:27→22:04)
[2016-11-21] MEDS: 0.9 % SODIUM CHLORIDE 10 ML SYRINGE IV SCH ×6 (05:27→22:03)
[2016-11-21] MEDS: HYDROmorphone 2 MG/ML SYRINGE IV PRN ×2 (06:36→21:13)
[2016-11-21] MEDS: INSULIN LISPRO 1 UNIT/0.01 ML UNIT SQ SCH ×4 (08:22→21:13)
[2016-11-21] MEDS: PHENYTOIN SOD 100 MG CAPSULE PO SCH ×3 (08:54→21:11)
[2016-11-21] MEDS: LISINOPRIL 20 MG TABLET PO SCH (08:54)
[2016-11-21] MEDS: cloNIDine HCL 0.1 MG TABLET PO SCH ×3 (08:55→21:12)
[2016-11-21] MEDS: HYDROCHLOROTHIAZIDE 12.5 MG CAPSULE PO SCH (08:55)
[2016-11-21] MEDS: traMADol 50 MG TABLET PO SCH (08:55)
[2016-11-21] MEDS: LABETALOL 100 MG TABLET PO SCH ×3 (08:55→21:21)
[2016-11-21] MEDS: HEPARIN 5,000 UNIT/ML VIAL SQ SCH ×2 (08:56→21:12)
[2016-11-21] MEDS: POTASSIUM CHLORIDE 20 MEQ TABLET PO SCH ×2 (08:56→17:37)
[2016-11-21] MEDS: SOLIFENACIN 10 MG PO SCH (08:56)
[2016-11-21] MEDS: VANCOMYCIN 1,000 MG in 0.9 % SODIUM CHLORIDE 250 ML IV SCH ×2 (08:57→21:13)
[2016-11-21] MEDS ORDERED: MAGNESIUM SULFATE 2 GM/50 ML BAG IV ONE (10:00)
--- NOTE | 2016-11-21 10:52 | Internal Med Progress Note ---
Medical - PN: Subj Patient information: Note initiated : 11/21/16 at 10:49 am Service Date, if different from initiated Date: [] Patient: Jose R Rodríguez 71 y/o M admitted on 11/17/16 for Left Lower Abdominal Pain/Pneumonia, Sepsis. Interval history: Mr. Rodríguez is a 71 year old Male with h/o recent heminephrectomy on the right side for renal cell cancer. The source was done in AUGUST. By Dr. Rawls The patient had a CAT scan done at the end of SEPTEMBER showed a left lower lobe pneumonia with possible small effusion. According to the patient since then he has had multiple rounds of treatment with antibiotics. He was treated at [facility] with some antibiotics. I see from Dr. Rawls clinic note that he was also on Bactrimduring that time period. The patient has been seen in the ED twice here and has been given Zithromax for community-acquired pneumonia and bronchitis. The patient's x-rays has been showing left lower lobe pneumonia and possibly fluid. This time the patient complains of left sided chest pain as well as left-sided upper abdominal pain. This has been going on for the last 4 days, progressively getting worse, pain is sharp in nature, worse with respiration. Better with rest. She did have some chills but denies any fever. Cough with brownish sputum. Initially there may have been some blood in the sputum. pain is nonradiating. The patient presented to the ER with these symptoms, he had an elevated white blood cell count in the ED, normal creatinine, his sodium was 1:30. The patient had a CT of the abdomen and pelvis which showed loculated effusion in the left lower lobe as well as pneumonia in the left lower lobe. The patient will undergo a CAT scan guided drainage of this loculated effusion, possible abscess. I discussed the case with radiology. 11/18: patient and examined, events since admission reviewed. The patient underwent a left-sided pigtail catheter placement, by radiology. The patient tolerated the procedure well. However, later in the evening the patient developedpain in the left side of the chest initially was in the upper part of the chest and then slowly moved downwards. The patient was diaphoretic, tachypneic, had increased oxygen requirement and had elevated blood pressures. The patient underwent the x-ray of his chest which did not show any pneumothorax but did show increased fluid in the left lower lung. Given that he had elevated blood pressure, tachycardia and chest pain which was radiating down his history of aortic aneurysm in the thoracic aorta. We got a CT angiogram of the chest, abdomen and pelvis. This was negative for any dissection. However, it was read as a possible pulmonary embolism in the left upper lobe. Patient was started on Lovenox therapeutic dose for anticoagulation. I'm awaiting the opportunity from radiologist to determine if the patient clearly has a pulmonary embolism. The patient's condition stabilized after he received adequate pain management. The patient this morning notes that he had some nausea overnight but no other acute complaints. The pain is still there but not as bad as before. I reviewed with him the findings of the pleural fluid as well as the scans admitted overnight 11/19: Pt seen examined, patient still has some pain, but no new concerns. He is tolerating po ok, he was sob this AM with with increased oxygen requirement. Exam showed poor air entry, and júnior wheezing, started on steroids and duonebs. He also had CTA for PE and this was negative. will discontinue enoxaparin and start on sq insulin starting tomorrow. Discussed results with pt Pt has poor drain output, but has moderate effusion on the left side, may need repeat thoracocentesis to see if the effusion is infected too. Plan to get that done tomorrow after anticoagulation effect from lovenox is resolved. pain is ok controlled at this time, vitals are stable. The patient has skin itching with penicillin. He is presently growing gram positive cocci in chains, the patient culture is negative. but there is a suspicion for anaerobic infection. IV clindamycin started today. However given he will need around 4Weeks of IV ABX and he only has mild allergy to penicillin , we gave patient a test dose of imipenem. at 40 mins so far in the test there is no rash, itching or any adverse reaction. Plan to switch aztreonam and clinda to imipenum if patient test remains negative at 1 hr. GIven that he will be higher risk for CDiff with clindamycin. 11/20: Pt seen examined, no acute overnight events, still has some pain, but much more relaxed this AM, tolerating PO diet well, still on 6L oxygen. The patient is not liking his bp cuff inflating every hour. The patient had successful skin test of imipenum and has been switched over to this medication to cover for gram neg and anaerobic infection. Plan to continue IV abx, get US guided thoracocentesis, continue duonebs and steroids (still has wheezing), he is positive > 8000ml, give one dose of lasix today. 11/21: Overnight had agitation, responded to lorazepam. Recurred this AM, appears to be a pain response, responded to Dilaudid. Suspect "agitation" is actually due to pain. Still some pain with inspiration. No fever or chills. No n/v. - Constitutional Vitals: Vital Signs Temp Pulse Resp BP Pulse Ox 98.6 F 81 18 148/84 91 11/21/16 06:35 11/21/16 10:39 11/21/16 10:39 11/21/16 08:00 11/21/16 08:00 Period Temp Pulse Resp BP Sys/Ahumada Pulse Ox Last 24 Hr 97.0 F-98.6 F 80-98 14-36 135-170/66-95 90-98 Intake and Output 11/20/16 11/21/16 11/21/16 21:59 05:59 13:59 Intake Total 810 / 810 500 / 500 950 / 950 Output Total 935 / 935 1006 / 1006 900 / 900 Balance -125 / -125 -506 / -506 50 / 50 Weight 178 lb 14.4 oz Intake & Output: Intake & Output 11/20/16 11/21/16 11/21/16 21:59 05:59 13:59 Intake Total 810 / 810 500 / 500 950 / 950 Output Total 935 / 935 1006 / 1006 900 / 900 Balance -125 / -125 -506 / -506 50 / 50 Weight 178 lb 14.4 oz Intake: IV 250 / 250 500 / 500 250 / 250 Primaxin 1,000 mg In 250 / 250 250 / 250 250 / 250 Sodium Chloride 0.9% 250 ml @ 250 mls/hr IV Q8H [facility] Rx#:[id number] Vancomycin 1,000 mg In 250 / 250 Sodium Chloride 0.9% 250 ml @ 250 mls/hr IV Q12H [facility] Rx#:[id number] Oral 560 / 560 700 / 700 Output: Drainage left lateral midback Urine Catheter Amount 925 / 925 1000 / 1000 900 / 900 Other: Meal Dinner Breakfast Percent of Meal Consumed 100% 75% Feeding Ability Independent Independent # Bowel Movements 1 1 General appearance: cooperative, no acute distress - Respiratory Respiratory exam: Absent: accessory muscle use Additional comments: Diminished at left base, few rales; few rales right base, improved/resolved after deep inspiration. Pigtail catheter in place. Thoracentesis site clear. - Cardiovascular Cardiovascular exam: Present: normal rate and rhythm. Absent: gallop, JVD, systolic murmur - GI/Abdominal GI/Abdominal exam: Present: normal bowel sounds, soft. Absent: guarding, tenderness - Extremities Exam Extremities exam: Present: full ROM. Absent: pedal edema - Neurological Exam Neurological exam: Present: alert, oriented X3 - Psychiatric Psychiatric exam: Present: normal affect, normal mood Medical - PN: Obj Da - Labs CBC & Chem 7: 11/21/16 03:58 11/21/16 03:58 Labs: Abnormal Lab Results 11/21/16 11/21/16 11/20/16 03:58 03:58 21:00 WBC 13.9 H RBC 3.05 L Hgb 8.8 L Hct 27.0 L RDW 15.1 H Plt Count 480 H MPV Gran % 89.3 H Lymph % (Auto) 4.9 L Gran # 12.4 H Lymph # (Auto) 0.7 L Sodium 132 L 129 L Chloride 94 L Carbon Dioxide Creatinine 0.4 L 0.6 L Glucose 226 H 290 H Calcium 8.0 L 8.1 L Phosphorus 1.8 L GGT 156 H 172 H Alkaline Phosphatase 118 H 131 H Total Protein 5.6 L Albumin 2.6 L 2.6 L Albumin/Globulin Ratio 0.9 L 0.8 L 11/20/16 11/20/16 11/19/16 03:45 03:45 04:59 WBC 17.2 H RBC 2.81 L Hgb 8.3 L Hct 25.4 L RDW 15.3 H Plt Count 502 H MPV 6.7 L Gran % 90.8 H Lymph % (Auto) 4.0 L Gran # 15.6 H Lymph # (Auto) 0.7 L Sodium 130 L 131 L Chloride Carbon Dioxide 21 L 20 L Creatinine 0.4 L 0.5 L Glucose 156 H 153 H Calcium 8.2 L 8.1 L Phosphorus 2.2 L GGT 161 H 186 H Alkaline Phosphatase 126 H 146 H Total Protein 5.7 L 5.8 L Albumin 2.6 L 2.7 L Albumin/Globulin Ratio 0.8 L 0.9 L 11/19/16 04:59 WBC 21.3 H RBC 2.98 L Hgb 9.0 L Hct 26.0 L RDW Plt Count 537 H MPV 7.0 L Gran % 89.8 H Lymph % (Auto) 4.6 L Gran # 19.1 H Lymph # (Auto) 1.0 L Sodium Chloride Carbon Dioxide Creatinine Glucose Calcium Phosphorus GGT Alkaline Phosphatase Total Protein Albumin Albumin/Globulin Ratio Meds: Medications Acetaminophen (Tylenol) 650 mg PO Q6HP PRN PRN Reason: PAIN/FEVER > 101 Hydrocodone Bitart/Acetaminophen (Joseph 7.5/325mg) 1 - 2 tab PO Q6HP PRN PRN Reason: Pain Last Admin: 11/20/16 21:50 Dose: 1 tab Albuterol/Ipratropium (Duoneb) 3 ml NEB Q4HRT [facility] Last Admin: 11/21/16 10:37 Dose: 3 ml Clonidine HCl (Catapres) 0.1 mg PO Q4HP PRN PRN Reason: Hypertension Clonidine HCl (Catapres) 0.2 mg PO TID [facility] Last Admin: 11/21/16 08:55 Dose: 0.2 mg Dextrose (Dextrose 50%) 0 ml IV UD PRN PRN Reason: Hypoglycemia Diagnostic Test (Pha) (Accu-Chek) 1 each FS ACHS [facility] Last Admin: 11/21/16 08:00 Dose: 1 each Diphenhydramine HCl (Benadryl) 50 mg IV Q4-6HP PRN PRN Reason: Allergic Symptoms Glucose (Insta-Glucose) 15 gm PO PRN PRN PRN Reason: Hypoglycemia Heparin Sodium (Porcine) (Heparin) 5,000 unit SQ Q12 [facility] Last Admin: 11/21/16 08:56 Dose: 5,000 unit Hydralazine HCl (Apresoline) 10 mg IV Q4-6HP PRN PRN Reason: Hypertension Hydrochlorothiazide (Oretic) 12.5 mg PO DAILY [facility] Last Admin: 11/21/16 08:55 Dose: 12.5 mg Hydromorphone HCl (Dilaudid) 0.5 mg IV Q2HP PRN PRN Reason: Pain Last Admin: 11/21/16 06:36 Dose: 0.5 mg Imipenem/Cilastatin Sodium 1, (000 mg/ Sodium Chloride) 250 mls @ 250 mls/hr IV Q8H [facility] Last Infusion: 11/21/16 06:51 Dose: Infused Vancomycin HCl 1,000 mg/ (Sodium Chloride) 250 mls @ 250 mls/hr IV Q12H [facility] Last Admin: 11/21/16 08:57 Dose: 250 mls/hr Magnesium Sulfate (Magnesium Sulfate) 2 gm in 50 mls @ 50 mls/hr IV ONCE ONE Stop: 11/21/16 10:59 Last Admin: 11/21/16 10:44 Dose: 50 mls/hr Insulin Human Lispro (Humalog) 0 unit SQ ACHS [facility] PRN Reason: Protocol Last Admin: 11/21/16 08:22 Dose: 2 unit Labetalol HCl (Trandate) 300 mg PO TID [facility] Last Admin: 11/21/16 08:55 Dose: 300 mg Lisinopril (Zestril) 20 mg PO DAILY [facility] Last Admin: 11/21/16 08:54 Dose: 20 mg Lorazepam (Ativan) 1 mg IV Q2-4HP PRN PRN Reason: ANXIETY/SEDATION Magnesium Hydroxide (Milk Of Magnesia) 30 ml PO DAILYP PRN PRN Reason: Constipation Methylprednisolone Sodium Succinate (Solu-Medrol) 62.5 mg IV Q8 [facility] Last Admin: 11/21/16 05:27 Dose: 62.5 mg Naloxone HCl (Narcan) 0.1 mg IV Q2MIN PRN PRN Reason: Opiate Reversal Solifenacin[Vesicare (]10 Mg Tab) 5 mg PO DAILY [facility] Last Admin: 11/21/16 08:56 Dose: 5 mg Ondansetron HCl (Zofran) 4 mg IV Q6HP PRN PRN Reason: Nausea And Vomiting Phenytoin Sodium (Dilantin) 300 mg PO TID [facility] Last Admin: 11/21/16 08:54 Dose: 300 mg Potassium Chloride (Kdur) 20 meq PO BIDCC [facility] Last Admin: 11/21/16 08:56 Dose: 20 meq Prazosin HCl (Minipress) 2 mg PO HS [facility] Last Admin: 11/20/16 21:52 Dose: 2 mg Sodium Chloride (Saline Flush) 10 ml IV Q8 [facility] Last Admin: 11/21/16 10:45 Dose: 10 ml Tamsulosin HCl (Flomax) 0.4 mg PO HS [facility] Last Admin: 11/20/16 21:50 Dose: 0.4 mg Tramadol HCl (Ultram) 50 mg PO DAILY [facility] Last Admin: 11/21/16 08:55 Dose: 50 mg Trazodone HCl (Desyrel) 25 mg PO HSP PRN PRN Reason: Insomnia Vancomycin HCl (Vancomycin Per Pharmacy) 1 order IV UD [facility] - Imaging and cardiology Chest x-ray Additional comments: IMPRESSION: 1. Following left thoracentesis, only small residual left pleural effusion. No pneumothorax or other complication. 2. Moderate consolidation atelectasis/infiltrate of the left lower lobe and lingula shows improvement 3. Small vague right perihilar infiltrate - stable Medical - PN: A/P (1) Empyema Status: Acute Assessment and plan: Remains on broad spectrum abx, imipenem added due to notation of possible anaerobes on gram stain, though cultures of empyema fluid are negative. Status post US guided thoracentesis yesterday, non-purulent material. WBC continues to slowly improve. F/U cultures, cont abx, follow drainage. Current Visit: Yes (2) Pneumonia Status: Acute Assessment and plan: Initially treated as CAP, currently on Rx for HCAP given multiple health-care encounters. Continue vanc/imipenem. Slowly improving. Current Visit: Yes (3) Pleural effusion Status: Acute Assessment and plan: Drained yesterday, more c/w parapneumonic, not another focus of empyema. Follow. Current Visit: Yes (4) Sepsis Status: Acute Assessment and plan: Due to PNA and empyema. Responding to treatment. Current Visit: Yes - Narrative A/P Narrative: Other problems: Chest Pain, Acute: Due to pleural catheter. Pain management with home meds and IV dilaudid. DM: holding home medications, continue sliding scale insulin HTN: stable, Resumed home meds, adequate pain management and monitor. Renal Cell Ca: s/p Surgery/resection FB in abdomen: Noted on CT, not an acute issue, discussed with Dr Rawls, likely a sharpnel, not related to nephrectomy. h/o Seizures: on Dilantin, last seizure 2001, levels therapeutic, Pulmonary Embolism: neg PE on repeat Scan, d/c'ed full dose lovenox. Chronic pain: Resume home pain meds, IV Dialudid prn for acute pain (new chest tube/ drain) Aortic Aneurysm: Medical management as per home regime, nothing to suggest dissection. Drug abuse/ EtOH abuse: patient denies same, but problem list mentions substance abuse, he admits to use of THC. DVT hep sq. Diet Diabetic Cardiac diet Code Status DNR Medical - PN: Qual - VTE Deep Vein Thrombosis/Pulmonary Embolism Present on Admission: No
[2016-11-21] MEDS: HYDROCODONE/APAP 7.5/325MG TABLET PO PRN ×2 (14:21→22:37)
[2016-11-21] MEDS: PRAZOSIN 1 MG CAPSULE PO SCH (21:11)
[2016-11-21] MEDS: TAMSULOSIN 0.4 MG CAPSULE PO SCH (21:12)
[2016-11-22] MEDS: HYDROmorphone 2 MG/ML SYRINGE IV PRN ×3 (00:19→19:03)
[2016-11-22] MEDS: IPRATROPIUM/ALBUTEROL 3 ML AMPUL.NEB NEB SCH ×6 (02:57→22:57)
[2016-11-22] MEDS: methylPREDNISolone SOD SUCC 125 MG/2 ML VIAL IV SCH ×3 (05:32→23:01)
[2016-11-22] MEDS: IMIPENEM/CILASTATIN SODIUM 1,000 MG in 0.9 % SODIUM CHLORIDE 250 ML IV SCH ×3 (05:32→23:01)
[2016-11-22] MEDS: 0.9 % SODIUM CHLORIDE 10 ML SYRINGE IV SCH ×7 (05:32→23:01)
[2016-11-22 06:33] LABS: Basophils # (Auto) 0 K/mcL (0.0-0.3); Basophils % (Auto) 0 % (0.0-2.0); Eosinophils # (Auto) 0.1 K/mcL (0.0-0.7); Eosinophils % (Auto) 0.8 % (0.0-7.0); Granulocytes % (Auto) 86.2 % (38.0-78.0); Lymphocytes # (Auto) 0.9 K/mcL (1.5-4.8); Lymphocytes % (Auto) 7.7 % (15.5-49.0); Mean Cell Volume 89.6 fL (80.0-100.0); Mean Corpuscular HGB Conc 32.9 g/dL (31.0-36.0); Mean Corpuscular Hemoglobin 29.5 pg (26.0-34.0); Monocytes # (Auto) 0.7 K/mcL (0.1-0.9); Monocytes % (Auto) 5.3 % (1.0-12.0); Platelet Count 594 K/mcL (140-440); RBC 3.12 M/mcL (4.50-5.90); Red Cell Distribution Width 15.6 % (11.5-14.5)
[2016-11-22] MEDS: POTASSIUM CHLORIDE 20 MEQ TABLET PO SCH ×2 (07:13→17:45)
[2016-11-22] MEDS: HYDROCODONE/APAP 7.5/325MG TABLET PO PRN (07:14)
[2016-11-22] MEDS: hydrALAZINE 20 MG/ML VIAL IV PRN (07:27)
[2016-11-22 07:31] LABS: ALT/SGPT 16 U/l (0-40); Albumin 2.9 gm/dL (3.2-5.2); Albumin/Globulin Ratio 0.9 (1.0-2.3); Alkaline Phosphatase 142 U/L (39-117); Bilirubin,Direct < 0.2 mg/dL (0.0-0.3); Blood Urea Nitrogen 9 mg/dl (8-23); Gamma Glutamyl Transpeptidase 203 U/L (8-61); Uric Acid 2.7 mg/dL (2.5-8.0)
[2016-11-22] MEDS: INSULIN LISPRO 1 UNIT/0.01 ML UNIT SQ SCH ×4 (08:33→21:10)
[2016-11-22] MEDS: SOLIFENACIN 10 MG PO SCH (09:17)
[2016-11-22] MEDS: PHENYTOIN SOD 100 MG CAPSULE PO SCH ×3 (09:18→21:08)
[2016-11-22] MEDS: LISINOPRIL 20 MG TABLET PO SCH (09:18)
[2016-11-22] MEDS: LABETALOL 100 MG TABLET PO SCH ×3 (09:19→21:19)
[2016-11-22] MEDS: cloNIDine HCL 0.1 MG TABLET PO SCH ×3 (09:19→21:08)
[2016-11-22] MEDS: traMADol 50 MG TABLET PO SCH (09:19)
[2016-11-22] MEDS: HYDROCHLOROTHIAZIDE 12.5 MG CAPSULE PO SCH (09:19)
[2016-11-22] MEDS: HEPARIN 5,000 UNIT/ML VIAL SQ SCH ×2 (09:20→21:06)
[2016-11-22] MEDS: VANCOMYCIN 1,000 MG in 0.9 % SODIUM CHLORIDE 250 ML IV SCH ×2 (09:20→21:06)
--- NOTE | 2016-11-22 19:59 | Internal Med Progress Note ---
Medical - PN: Subj Patient information: Note initiated : 11/22/16 at 7:56 pm Service Date, if different from initiated Date: [] Patient: Jose R Rodríguez 71 y/o M admitted on 11/17/16 for Left Lower Abdominal Pain/Pneumonia, Sepsis. Chief Complaint: [follow up SIRS/ retroperitoneal hematoma] Interval history: Mr. Rodríguez is a 71 year old Male with h/o recent heminephrectomy on the right side for renal cell cancer. The source was done in AUGUST. By Dr. Rawls The patient had a CAT scan done at the end of SEPTEMBER showed a left lower lobe pneumonia with possible small effusion. According to the patient since then he has had multiple rounds of treatment with antibiotics. He was treated at [facility] with some antibiotics. I see from Dr. Rawls clinic note that he was also on Bactrimduring that time period. The patient has been seen in the ED twice here and has been given Zithromax for community-acquired pneumonia and bronchitis. The patient's x-rays has been showing left lower lobe pneumonia and possibly fluid. This time the patient complains of left sided chest pain as well as left-sided upper abdominal pain. This has been going on for the last 4 days, progressively getting worse, pain is sharp in nature, worse with respiration. Better with rest. She did have some chills but denies any fever. Cough with brownish sputum. Initially there may have been some blood in the sputum. pain is nonradiating. The patient presented to the ER with these symptoms, he had an elevated white blood cell count in the ED, normal creatinine, his sodium was 1:30. The patient had a CT of the abdomen and pelvis which showed loculated effusion in the left lower lobe as well as pneumonia in the left lower lobe. The patient will undergo a CAT scan guided drainage of this loculated effusion, possible abscess. I discussed the case with radiology. 11/18: patient and examined, events since admission reviewed. The patient underwent a left-sided pigtail catheter placement, by radiology. The patient tolerated the procedure well. However, later in the evening the patient developedpain in the left side of the chest initially was in the upper part of the chest and then slowly moved downwards. The patient was diaphoretic, tachypneic, had increased oxygen requirement and had elevated blood pressures. The patient underwent the x-ray of his chest which did not show any pneumothorax but did show increased fluid in the left lower lung. Given that he had elevated blood pressure, tachycardia and chest pain which was radiating down his history of aortic aneurysm in the thoracic aorta. We got a CT angiogram of the chest, abdomen and pelvis. This was negative for any dissection. However, it was read as a possible pulmonary embolism in the left upper lobe. Patient was started on Lovenox therapeutic dose for anticoagulation. I'm awaiting the opportunity from radiologist to determine if the patient clearly has a pulmonary embolism. The patient's condition stabilized after he received adequate pain management. The patient this morning notes that he had some nausea overnight but no other acute complaints. The pain is still there but not as bad as before. I reviewed with him the findings of the pleural fluid as well as the scans admitted overnight 11/19: Pt seen examined, patient still has some pain, but no new concerns. He is tolerating po ok, he was sob this AM with with increased oxygen requirement. Exam showed poor air entry, and júnior wheezing, started on steroids and duonebs. He also had CTA for PE and this was negative. will discontinue enoxaparin and start on sq insulin starting tomorrow. Discussed results with pt Pt has poor drain output, but has moderate effusion on the left side, may need repeat thoracocentesis to see if the effusion is infected too. Plan to get that done tomorrow after anticoagulation effect from lovenox is resolved. pain is ok controlled at this time, vitals are stable. The patient has skin itching with penicillin. He is presently growing gram positive cocci in chains, the patient culture is negative. but there is a suspicion for anaerobic infection. IV clindamycin started today. However given he will need around 4Weeks of IV ABX and he only has mild allergy to penicillin , we gave patient a test dose of imipenem. at 40 mins so far in the test there is no rash, itching or any adverse reaction. Plan to switch aztreonam and clinda to imipenum if patient test remains negative at 1 hr. GIven that he will be higher risk for CDiff with clindamycin. 11/20: Pt seen examined, no acute overnight events, still has some pain, but much more relaxed this AM, tolerating PO diet well, still on 6L oxygen. The patient is not liking his bp cuff inflating every hour. The patient had successful skin test of imipenum and has been switched over to this medication to cover for gram neg and anaerobic infection. Plan to continue IV abx, get US guided thoracocentesis, continue duonebs and steroids (still has wheezing), he is positive > 8000ml, give one dose of lasix today. 11/21: Overnight had agitation, responded to lorazepam. Recurred this AM, appears to be a pain response, responded to Dilaudid. Suspect "agitation" is actually due to pain. Still some pain with inspiration. No fever or chills. No n/v. 11/22: Feeling a little bit better again today. Still intermittent pain associated with pleural pigtail catheter. Arrangements being made for him to go to LTAC for long-term antibiotics. Continues to have significant auto- diuresis. Has Lyle catheter in place, asked about difficulty voiding. He has been having difficulty voiding, Lyle was initially discontinued this hospitalization then replaced due to both voiding difficulties and need for accurate intake and output. - Constitutional Vitals: Vital Signs Temp Pulse Resp BP Pulse Ox 98.0 F 92 H 15 162/84 93 11/22/16 16:00 11/22/16 19:12 11/22/16 19:12 11/22/16 16:00 11/22/16 19:07 Period Temp Pulse Resp BP Sys/Ahumada Pulse Ox Last 24 Hr 98.0 F-98.6 F 82-119 15-30 145-202/83-102 91-95 Intake and Output 11/22/16 11/22/16 11/22/16 05:59 13:59 21:59 Intake Total 500 / 500 1400 / 1400 120 / 120 Output Total 3219 / 3219 2099 / 2099 1211 Balance -2719 / -2719 -700 / -700 -1091 / -1091 Weight 170 lb 4.8 oz Patient Weight 11/23/16 05:59 Weight 170 lb 4.8 oz Intake & Output: Intake & Output 11/22/16 11/22/16 11/22/16 05:59 13:59 21:59 Intake Total 500 / 500 1400 / 1400 120 / 120 Output Total 3219 / 3219 2099 / 2099 1210 / 1211 Balance -2719 / -2719 -700 / -700 -1091 / -1091 Weight 170 lb 4.8 oz Intake: IV 500 / 500 500 / 500 Primaxin 1,000 mg In 250 / 250 250 / 250 Sodium Chloride 0.9% 250 ml @ 250 mls/hr IV Q8H [facility] Rx#:[id number] Vancomycin 1,000 mg In 250 / 250 250 / 250 Sodium Chloride 0.9% 250 ml @ 250 mls/hr IV Q12H [facility] Rx#:[id number] Oral 600 / 600 120 / 120 GI Tube Flush 300 / 300 Output: Drainage left lateral midback Urine Catheter Amount 3200 / 3200 2100 / 2100 1200 / 1200 Other: Meal Lunch Dinner Percent of Meal Consumed 50% 25% Feeding Ability Independent Assist with Tray Set Up # Bowel Movements 1 - Additional findings Additional findings: General: Sitting in bed, in no acute distress, talkative Chest: Diminished at right base, no rales, otherwise clear, no accessory muscle usage Cardiovascular: Regular, trace edema Abdomen: Soft, nontender, active bowel sounds Neuro: Alert, oriented, generally weak Medical - PN: Obj Da - Labs CBC & Chem 7: 11/22/16 03:55 11/22/16 03:55 Labs: Abnormal Lab Results 11/22/16 11/22/16 11/21/16 03:55 03:55 03:58 WBC 12.4 H RBC 3.12 L Hgb 9.2 L Hct 27.9 L RDW 15.6 H Plt Count 594 H MPV 6.8 L Gran % 86.2 H Lymph % (Auto) 7.7 L Gran # 10.6 H Lymph # (Auto) 0.9 L Sodium 132 L Chloride Carbon Dioxide Creatinine 0.5 L 0.4 L Glucose 152 H 226 H Calcium 8.5 L 8.0 L Phosphorus GGT 203 H 156 H Alkaline Phosphatase 142 H 118 H Total Protein 5.6 L Albumin 2.9 L 2.6 L Albumin/Globulin Ratio 0.9 L 0.9 L Triglycerides 159 H 11/21/16 11/20/16 11/20/16 03:58 21:00 03:45 WBC 13.9 H RBC 3.05 L Hgb 8.8 L Hct 27.0 L RDW 15.1 H Plt Count 480 H MPV Gran % 89.3 H Lymph % (Auto) 4.9 L Gran # 12.4 H Lymph # (Auto) 0.7 L Sodium 129 L 130 L Chloride 94 L Carbon Dioxide 21 L Creatinine 0.6 L 0.4 L Glucose 290 H 156 H Calcium 8.1 L 8.2 L Phosphorus 1.8 L 2.2 L GGT 172 H 161 H Alkaline Phosphatase 131 H 126 H Total Protein 5.7 L Albumin 2.6 L 2.6 L Albumin/Globulin Ratio 0.8 L 0.8 L Triglycerides 11/20/16 03:45 WBC 17.2 H RBC 2.81 L Hgb 8.3 L Hct 25.4 L RDW 15.3 H Plt Count 502 H MPV 6.7 L Gran % 90.8 H Lymph % (Auto) 4.0 L Gran # 15.6 H Lymph # (Auto) 0.7 L Sodium Chloride Carbon Dioxide Creatinine Glucose Calcium Phosphorus GGT Alkaline Phosphatase Total Protein Albumin Albumin/Globulin Ratio Triglycerides Meds: Medications Acetaminophen (Tylenol) 650 mg PO Q6HP PRN PRN Reason: PAIN/FEVER > 101 Hydrocodone Bitart/Acetaminophen ([place] 7.5/325mg) 1 - 2 tab PO Q6HP PRN PRN Reason: Pain Last Admin: 11/22/16 07:14 Dose: 1 tab Albuterol/Ipratropium (Duoneb) 3 ml NEB Q4HRT [facility] Last Admin: 11/22/16 19:07 Dose: 3 ml Clonidine HCl (Catapres) 0.1 mg PO Q4HP PRN PRN Reason: Hypertension Clonidine HCl (Catapres) 0.2 mg PO TID [facility] Last Admin: 11/22/16 15:04 Dose: 0.2 mg Dextrose (Dextrose 50%) 0 ml IV UD PRN PRN Reason: Hypoglycemia Diagnostic Test (Pha) (Accu-Chek) 1 each FS ACHS [facility] Last Admin: 11/22/16 17:44 Dose: 1 each Diphenhydramine HCl (Benadryl) 50 mg IV Q4-6HP PRN PRN Reason: Allergic Symptoms Glucose (Insta-Glucose) 15 gm PO PRN PRN PRN Reason: Hypoglycemia Heparin Sodium (Porcine) (Heparin) 5,000 unit SQ Q12 [facility] Last Admin: 11/22/16 09:20 Dose: 5,000 unit Hydralazine HCl (Apresoline) 10 mg IV Q4-6HP PRN PRN Reason: Hypertension Last Admin: 11/22/16 07:27 Dose: 10 mg Hydrochlorothiazide (Oretic) 12.5 mg PO DAILY [facility] Last Admin: 11/22/16 09:19 Dose: 12.5 mg Hydromorphone HCl (Dilaudid) 0.5 mg IV Q2HP PRN PRN Reason: Pain Last Admin: 11/22/16 19:03 Dose: 0.5 mg Imipenem/Cilastatin Sodium 1, (000 mg/ Sodium Chloride) 250 mls @ 250 mls/hr IV Q8H [facility] Last Admin: 11/22/16 14:09 Dose: 125 mls/hr Vancomycin HCl 1,000 mg/ (Sodium Chloride) 250 mls @ 250 mls/hr IV Q12H [facility] Last Infusion: 11/22/16 10:30 Dose: Infused Insulin Human Lispro (Humalog) 0 unit SQ ACHS [facility] PRN Reason: Protocol Last Admin: 11/22/16 17:44 Dose: 2 unit Labetalol HCl (Trandate) 300 mg PO TID [facility] Last Admin: 11/22/16 15:06 Dose: 300 mg Lisinopril (Zestril) 20 mg PO DAILY [facility] Last Admin: 11/22/16 09:18 Dose: 20 mg Lorazepam (Ativan) 1 mg IV Q2-4HP PRN PRN Reason: ANXIETY/SEDATION Magnesium Hydroxide (Milk Of Magnesia) 30 ml PO DAILYP PRN PRN Reason: Constipation Methylprednisolone Sodium Succinate (Solu-Medrol) 62.5 mg IV Q8 [facility] Last Admin: 11/22/16 15:06 Dose: 62.5 mg Naloxone HCl (Narcan) 0.1 mg IV Q2MIN PRN PRN Reason: Opiate Reversal Solifenacin[Vesicare (]10 Mg Tab) 5 mg PO DAILY [facility] Last Admin: 11/22/16 09:17 Dose: 5 mg Ondansetron HCl (Zofran) 4 mg IV Q6HP PRN PRN Reason: Nausea And Vomiting Phenytoin Sodium (Dilantin) 300 mg PO TID [facility] Last Admin: 11/22/16 15:04 Dose: 300 mg Potassium Chloride (Kdur) 20 meq PO BIDCC [facility] Last Admin: 11/22/16 17:45 Dose: 20 meq Prazosin HCl (Minipress) 2 mg PO HS [facility] Last Admin: 11/21/16 21:11 Dose: 2 mg Sodium Chloride (Saline Flush) 10 ml IV Q8 [facility] Last Admin: 11/22/16 15:07 Dose: 10 ml Tamsulosin HCl (Flomax) 0.4 mg PO [facility] Last Admin: 11/21/16 21:12 Dose: 0.4 mg Tramadol HCl (Ultram) 50 mg PO DAILY [facility] Last Admin: 11/22/16 09:19 Dose: 50 mg Trazodone HCl (Desyrel) 25 mg PO HSP PRN PRN Reason: Insomnia Vancomycin HCl (Vancomycin Per Pharmacy) 1 order IV UD [facility] Medical - PN: A/P - Time Spent With Patient Total time spent is greater than 50% in coordination of care (as documented) at patient's floor/unit and/or counseling patient: (1) Empyema Status: Acute Assessment and plan: Remains on broad spectrum abx, imipenem added due to notation of possible anaerobes on gram stain, though cultures of empyema fluid are negative. Status post US guided thoracentesis Tuesday, non-purulent material. WBC continues to slowly improve. F/U cultures, cont abx. Discontinue pleural drain today. 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 Current Visit: Yes (2) Pneumonia Status: Acute Assessment and plan: Initially treated as CAP, currently on Rx for HCAP given multiple health-care encounters. Continue vanc/imipenem. Slowly improving. Consider stopping Vanco at LTAC. Current Visit: Yes (3) Pleural effusion Status: Acute Assessment and plan: Drained Sat, more c/w parapneumonic, not another focus of empyema. Follow. Current Visit: Yes (4) Sepsis Status: Acute Assessment and plan: Resolved. Due to PNA and empyema. Current Visit: Yes - Narrative A/P Narrative: Other problems: Chest Pain, Acute: Due to pleural catheter. Pain management with home meds and IV dilaudid. BPH with LUTS: Plan to keep Lyle catheter in place during transition to LTAC. Will need voiding trial at that point. DM: holding home medications, continue sliding scale insulin HTN: stable, Resumed home meds, adequate pain management and monitor. Renal Cell Ca: s/p Surgery/resection FB in abdomen: Noted on CT, not an acute issue, discussed with Dr Rawls, likely a sharpnel, not related to nephrectomy. h/o Seizures: on Dilantin, last seizure 2001, levels therapeutic, Pulmonary Embolism: neg PE on repeat Scan, d/c'ed full dose lovenox. Chronic pain: Resume home pain meds, IV Dialudid prn for acute pain (recent chest drain) Thoracis aortic aneurysm-chronic: Medical management as per home regime, nothing to suggest new dissection. Drug abuse/ EtOH abuse: patient denies same, but problem list mentions substance abuse, he admits to use of THC. DVT hep sq. Diet Diabetic Cardiac diet Code Status DNR Medical - PN: Qual - VTE Deep Vein Thrombosis/Pulmonary Embolism Present on Admission: No
[2016-11-22] MEDS: TAMSULOSIN 0.4 MG CAPSULE PO SCH (21:06)
[2016-11-22] MEDS: PRAZOSIN 1 MG CAPSULE PO SCH (21:10)
[2016-11-23] MEDS: HYDROmorphone 2 MG/ML SYRINGE IV PRN (01:52)
[2016-11-23] MEDS: IPRATROPIUM/ALBUTEROL 3 ML AMPUL.NEB NEB SCH ×3 (03:38→10:09)
[2016-11-23] MEDS: 0.9 % SODIUM CHLORIDE 10 ML SYRINGE IV SCH ×3 (05:42→09:01)
[2016-11-23] MEDS: IMIPENEM/CILASTATIN SODIUM 1,000 MG in 0.9 % SODIUM CHLORIDE 250 ML IV SCH (05:42)
[2016-11-23] MEDS: methylPREDNISolone SOD SUCC 125 MG/2 ML VIAL IV SCH (05:42)
[2016-11-23] MEDS: INSULIN LISPRO 1 UNIT/0.01 ML UNIT SQ SCH (07:56)
[2016-11-23] MEDS: hydrALAZINE 20 MG/ML VIAL IV PRN (08:07)
--- NOTE | 2016-11-23 08:32 | XRay Report ---
HISTORY: Reason for Exam:picc position FINDINGS: The PICC line has been placed to the right arm with the tip in the superior vena cava. There is no pneumothorax or pleural effusion. A moderate size consolidating infiltrate is present in the left lower lobe and there is also a small left pleural effusion. Mildly prominent increased interstitial lung markings are present surrounding the right hilum. The heart size is upper limits of normal. The aortic arch is ectatic and there are calcified plaques along the wall. Except for placement of PICC line there has been no significant change since 11/20/16. IMPRESSION: No complication following PICC line insertion Stable bilateral pulmonary infiltrates with the greatest involvement in the left lower lobe Interpreted and Authenticated by: Ajay Daniels 11/23/16
[2016-11-23] MEDS: POTASSIUM CHLORIDE 20 MEQ TABLET PO SCH (08:55)
[2016-11-23] MEDS: VANCOMYCIN 1,000 MG in 0.9 % SODIUM CHLORIDE 250 ML IV SCH (09:00)
[2016-11-23] MEDS: SOLIFENACIN 10 MG PO SCH (09:01)
[2016-11-23] MEDS: LABETALOL 100 MG TABLET PO SCH (09:02)
[2016-11-23] MEDS: PHENYTOIN SOD 100 MG CAPSULE PO SCH (09:02)
[2016-11-23] MEDS: traMADol 50 MG TABLET PO SCH (09:03)
[2016-11-23] MEDS: HEPARIN 5,000 UNIT/ML VIAL SQ SCH (09:03)
[2016-11-23] MEDS: HYDROCHLOROTHIAZIDE 12.5 MG CAPSULE PO SCH (09:03)
[2016-11-23] MEDS: LISINOPRIL 20 MG TABLET PO SCH (09:03)
[2016-11-23] MEDS: cloNIDine HCL 0.1 MG TABLET PO SCH (09:03)
--- NOTE | 2016-11-23 09:16 | Discharge Summary ---
Medical - DS: Prov Patient information: Note initiated : 11/23/16 at 9:15 am Service Date, if different from initiated Date: [] Patient: Jose R Rodríguez 71 y/o M admitted on 11/17/16 for Left Lower Abdominal Pain/Pneumonia, Sepsis. Date of admission: 11/17/16 12:30 Discharge date: 11/23/16 Primary care physician: Ariel Mahajan Admitting clinician: Juve Brown Attending physician on discharge: Ana Guerrero Medical - DS: Meds - Discharge Medications Active and Home Medications: Home Medications clonidine HCl 0.2 mg tablet 0.2 mg PO TID 30 Days 01/01/15 [History Confirmed Last Taken 11/16/16 21:00] ketoconazole 200 mg tablet 200 mg PO BID 30 Days 01/01/15 [History Confirmed 12/26 Last Taken 11/16/16 18:00] labetalol 300 mg tablet 300 mg PO TID 30 Days 01/01/15 [History Confirmed Last Taken 11/16/16 21:00] lisinopril 20 mg tablet 20 mg PO DAILY 30 Days 01/01/15 [History Confirmed 11/17 Last Taken 11/17/16 06:00] phenytoin sodium extended 100 mg capsule 300 mg PO TID 30 Days 01/01/15 [ History Confirmed 11/17/16 Last Taken 11/17/16 07:00] potassium chloride ER 10 mEq capsule,extended release 20 meq PO BID 30 Days [History Confirmed 11/17/16 Last Taken 11/16/16 21:00] prazosin 1 mg capsule 2 mg PO HS 30 Days 01/01/15 [History Confirmed 11/17/16 Last Taken 11/16/16 21:00] Diflunisal 500 mg PO BID 08/05/16 [History Confirmed 11/17/16 Last Taken 09:00] Solifenacin Succinate [Vesicare] 5 mg PO DAILY 08/05/16 [History Confirmed 11/17 Last Taken 11/17/16 09:00] Tamsulosin HCl [Flomax] 0.4 mg PO HS 08/05/16 [History Confirmed 11/17/16 Last Taken 11/16/16 21:00] traMADol [Ultram] 50 mg PO DAILY 08/05/16 [History Confirmed 11/17/16 Last Taken 08/11/16] Ipratropium/Albuterol [Duoneb] 3 ml NEB Q6HP PRN #0 ampul.neb 08/16/16 [Rx Confirmed 11/17/16 Last Taken 11/16/16 21:00] ibuprofen 200 mg tablet 200 mg PO .Q4-8H PRN tab 09/13/16 [History Confirmed Last Taken Unknown] Cyanocobalamin/Folic Acid [Vitamin J95-Cddiw Acid Tablet] 2,000 mcg DAILY [History Confirmed 11/17/16 Last Taken Unknown] Hydrochlorothiazide [Oretic] 12.5 mg PO DAILY 11/17/16 [History Confirmed Last Taken 11/17/16 07:00] metFORMIN [Glucophage] 1,000 mg PO BIDCC 11/17/16 [History Confirmed 11/17/16 Last Taken 11/17/16 06:00] Medical - DS: Hosp Hospital course: Mr. Rodríguez is a 71 year old Male with h/o recent heminephrectomy on the right side for renal cell cancer. The source was done in AUGUST. By Dr. Rawls The patient had a CT scan done at the end of SEPTEMBER showed a left lower lobe pneumonia with possible small effusion. According to the patient since then he has had multiple rounds of treatment with antibiotics. He was treated at [facility] with some antibiotics. I see from Dr. Rawls clinic note that he was also on Bactrim during that time period. The patient has been seen in the ED twice at [facility] and has been given Zithromax for community- acquired pneumonia and bronchitis. The patient's x-rays has been showing left lower lobe pneumonia and possibly fluid. This time the patient complains of left sided chest pain as well as left-sided upper abdominal pain. This has been going on for the last 4 days, progressively getting worse, pain is sharp in nature, worse with respiration. Better with rest. She did have some chills but denies any fever. Cough with brownish sputum. Initially there may have been some blood in the sputum. pain is nonradiating. The patient presented to the ER with these symptoms, he had an elevated white blood cell count in the ED, normal creatinine, his sodium was 130. The patient had a CT of the abdomen and pelvis which showed loculated effusion in the left lower lobe as well as pneumonia in the left lower lobe. The patient will undergo a CT scan guided drainage of this loculated effusion, possible abscess. I discussed the case with radiology. 11/18: patient and examined, events since admission reviewed. The patient underwent a left-sided pigtail catheter placement, by radiology. The patient tolerated the procedure well. However, later in the evening the patient developed pain in the left side of the chest initially was in the upper part of the chest and then slowly moved downwards. The patient was diaphoretic, tachypneic, had increased oxygen requirement and had elevated blood pressures. The patient underwent the x-ray of his chest which did not show any pneumothorax but did show increased fluid in the left lower lung. Given that he had elevated blood pressure, tachycardia and chest pain which was radiating down his history of aortic aneurysm in the thoracic aorta. We got a CT angiogram of the chest, abdomen and pelvis. This was negative for any dissection. However, it was read as a possible pulmonary embolism in the left upper lobe. Patient was started on Lovenox therapeutic dose for anticoagulation. I'm awaiting the opportunity from radiologist to determine if the patient clearly has a pulmonary embolism. The patient's condition stabilized after he received adequate pain management. The patient this morning notes that he had some nausea overnight but no other acute complaints. The pain is still there but not as bad as before. I reviewed with him the findings of the pleural fluid as well as the scans admitted overnight 11/19: Pt seen examined, patient still has some pain, but no new concerns. He is tolerating po ok, he was sob this AM with with increased oxygen requirement. Exam showed poor air entry, and júnior wheezing, started on steroids and duonebs. He also had CTA for PE and this was negative. will discontinue enoxaparin and start on sq insulin starting tomorrow. Discussed results with pt. Pt has poor drain output, but has moderate effusion on the left side, may need repeat thoracocentesis to see if the effusion is infected too. Plan to get that done tomorrow after anticoagulation effect from lovenox is resolved. Pain is ok controlled at this time, vitals are stable. The patient has skin itching with penicillin. He is presently has gram positive cocci in chains on gram stain, the patient culture is negative. but there is a suspicion for anaerobic infection. IV clindamycin started today. However given he will need around 4Weeks of IV ABX and he only has mild allergy to penicillin, we gave patient a test dose of imipenem. at 40 mins so far in the test there is no rash, itching or any adverse reaction. Plan to switch aztreonam and clinda to imipenum if patient test remains negative at 1 hr. GIven that he will be higher risk for CDiff with clindamycin. 11/20: Pt seen examined, no acute overnight events, still has some pain, but much more relaxed this AM, tolerating PO diet well, still on 6L oxygen. The patient is not liking his bp cuff inflating every hour. The patient had successful skin test of imipenum and has been switched over to this medication to cover for gram neg and anaerobic infection. Plan to continue IV abx, get US guided thoracocentesis, continue duonebs and steroids (still has wheezing), he is positive > 8000ml, give one dose of lasix today. 11/21: Overnight had agitation, responded to lorazepam. Recurred this AM, appears to be a pain response, responded to Dilaudid. Suspect "agitation" is actually due to pain. Still some pain with inspiration. No fever or chills. No n/v. 11/22: Feeling a little bit better again today. Still intermittent pain associated with pleural pigtail catheter. Arrangements being made for him to go to LTAC for long-term antibiotics. Continues to have significant auto- diuresis. Has Lyle catheter in place, asked about difficulty voiding. He has been having difficulty voiding, Lyle was initially discontinued this hospitalization then replaced due to both voiding difficulties and need for accurate intake and output. 11/23: Pigtail catheter discontinued yesterday evening. No new complaints this morning. Plan is to discharge to [facility] for prolonged antibiotics, ID consultation. At the time of discontinuation, the pleural catheter is only returning serosanguineous fluid after every 6 hours flushes with saline. Culture was without growth, however Gram stain of initial empyema show gram-positive cocci in chains, with notation of appearance of anaerobes. Culture of second thoracentesis of reactive effusion is without growth at the time of discharge. Further details on his thoracic aneurysm, include it occurred in 2004 and he was treated medically at [facility]. Imaging from [id number] at this facility if shown a stable exam. Discharge diagnosis: Left lower lobe pneumonia and empyema Secondary discharge diagnosis: Empyema, s/p pigtail drain, removed 11/22 Pneumonia, Rx for HCAP given multiple health-care encounters. Vancomycin/ imipenem. Consider stopping Vanco at LTAC. Pleural effusion, reactive, s/p thoracentesis 11/20/16, resolved Sepsis due to PNA/empyema, resolved BPH with LUTS and h/o urinary retention. Plan to keep Lyle catheter in place during transition to LTAC. Will need voiding trial at that point. Type 2 DM Hypertension Renal Cell Carcinoma (clear cell, pT1a pNX), s/p Resection 08/2016 Foreign body in abdomen noted on CT, not an acute issue, discussed with Dr Rawls, likely a shrapnel, not related to nephrectomy. 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 Drug abuse/ EtOH abuse: patient denies same, but problem list mentions substance abuse, he admits to use of THC. - Time Spent with Patient Total time spent providing and/or coordinating discharge services: Greater than 30 minutes Medical - DS: Exam - Constitutional Vitals: Vital Signs Temp Pulse Pulse Resp BP BP Pulse Ox 11/23/16 04:00 98.2 F 94 H 24 H 185/96 90 11/23/16 00:00 98.0 F 83 20 137/81 95 11/22/16 23:02 82 15 11/22/16 20:00 98.1 F 20 174/91 93 11/22/16 19:12 92 H 15 11/22/16 19:07 93 11/22/16 16:00 98.0 F 20 162/84 93 11/22/16 15:31 90 20 11/22/16 15:26 93 11/22/16 12:00 98.6 F 21 145/83 91 11/22/16 11:31 119 H 18 11/22/16 11:21 88 16 Intake and Output 11/22/16 11/23/16 11/23/16 21:59 05:59 13:59 Intake Total 370 / 370 500 / 500 250 / 250 Output Total 1211 / 1211 2550 / 2550 900 / 900 Balance -841 / -841 -2050 / -2050 -650 / -650 Intake: IV 250 / 250 500 / 500 250 / 250 Primaxin 1,000 mg In 250 / 250 250 / 250 250 / 250 Sodium Chloride 0.9% 250 ml @ 250 mls/hr IV Q8H GOMEZ Rx#:[id number] Vancomycin 1,000 mg In 250 / 250 Sodium Chloride 0.9% 250 ml @ 250 mls/hr IV Q12H GOMEZ Rx#:[id number] Oral 120 / 120 Output: Drainage left lateral midback Urine Catheter Amount 1200 / 1200 2550 / 2550 900 / 900 Other: Meal Dinner Percent of Meal Consumed 25% Feeding Ability Assist with Tray Set Up # Bowel Movements 1 Weight 173 lb 11.2 oz - Other Additional findings: General: In bed, looks comfortable Chest: Rales left lower, unlabored CV: RRR, no edema Abd: Soft, NT, active BS Neuro: Alert, Oriented, appropriate, generally weak Medical - DS: Data Procedures and tests throughout hospitalization: CT of chest, 11/17/16 IMPRESSION: 1. Percutaneous drain in satisfactory position within the collapsed abscess cavity of the lateral left lower lobe. Moderate sized infiltrate/atelectasis involving most of the left lower lobe no slight progression. Slight worsening in the left pleural effusion which remains moderate in size with small loculated component laterally. No CT evidence for empyema or hemorrhage. No pneumothorax. 2. Mild centrilobular emphysema changes 3. 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 Small associated dissection. 4. Abdominal images show a 3 x 1 cm saccular aneurysm of the infrarenal abdominal aorta just above the bifurcation stable. Small focal dissection of the mid abdominal aorta which has a thrombosed false lumen seen as before CT of chest, 11/19/16 IMPRESSION: 1. Complete consolidation atelectasis/infiltrate of the entire left lower lobe and lingula - it has worsened from previous study. 2. Pigtail drain catheter remains in satisfactory position within the collapsed abscess cavity in the lateral segment left lower lobe 3. Moderate worsening of left pleural effusion now large loculated components left lower lobe. 4. New moderate sized alveolar infiltrate - posterior segment of the right upper lobe. Small infiltrate posterior right lower lobe 5. Mild centrilobular emphysema changes Thoracentesis, 11/20/16 MPRESSION: Successful left thoracentesis yielding 800 cc of transudative appearing fluid. There is no overt evidence for empyema. Results are pending. Post procedure scanning shows no residual fluid. No apparent complication. Chest X-ray 11/20/16 IMPRESSION: 1. Following left thoracentesis, only small residual left pleural effusion. No pneumothorax or other complication. 2. Moderate consolidation atelectasis/infiltrate of the left lower lobe and lingula shows improvement 3. Small vague right perihilar infiltrate - stable Labs on day of discharge: Labs from last 24 hours 11/23/16 11/23/16 03:55 03:55 WBC Pending RBC Pending Hgb Pending Hct Pending MCV Pending MCH Pending MCHC Pending RDW Pending Plt Count Pending MPV Pending Sodium Pending Potassium Pending Chloride Pending Carbon Dioxide Pending Anion Gap Pending BUN Pending Creatinine Pending GFR Calculation Pending Glucose Pending Uric Acid Pending Calcium Pending Phosphorus Pending Magnesium Pending Total Bilirubin Pending Direct Bilirubin Pending GGT Pending AST Pending ALT Pending Alkaline Phosphatase Pending Lactate Dehydrogenase Pending Total Protein Pending Albumin Pending Globulin Pending Albumin/Globulin Ratio Pending Triglycerides Pending Preliminary micro results at discharge 11/19/16 07:40 Blood Culture - Preliminary Blood 11/19/16 07:30 Blood Culture - Preliminary Blood - Additional Comments See above reports. Medical - DS: A/P - Patient/Caregiver Discharge Instructions Activity: increase activity as tolerated, wear oxygen at all times Diet: Consistent Carbohydrate Additional Instructions: Discharged to [facility] for prolonged IV antibiotics for empyema (culture negative), ID consultation and PT/strengthening. - Problem Maintenance (1) Empyema Status: Resolved (2) Pneumonia Status: Acute Qualifiers: Pneumonia type: due to unspecified organism Laterality: left Lung location: lower lobe of lung Qualified Code(s): J18.1 - Lobar pneumonia, unspecified organism (3) Pleural effusion Status: Resolved (4) Sepsis Status: Resolved Qualifiers: Sepsis type: sepsis due to unspecified organism Qualified Code(s): A41.9 - Sepsis, unspecified organism - Follow up Plan Follow up with: Ariel Mahajan MD [Primary Care Provider] - (after discharge from LTAC) Disposition: [facility] Prognosis: Good Rehab Potential: Good I certify that the patient requires SNF services: Yes Overall status at discharge: patient is not back to baseline Medical - DS: Qual - VTE Deep Vein Thrombosis/Pulmonary Embolism Present on Admission: No
[2016-11-23 09:37] LABS: Mean Cell Volume 88.9 fL (80.0-100.0); Mean Corpuscular Hemoglobin 29.3 pg (26.0-34.0); Platelet Count 616 K/mcL (140-440); RBC 3.35 M/mcL (4.50-5.90); Red Cell Distribution Width 15.5 % (11.5-14.5)
[2016-11-23 09:39] LABS: ALT/SGPT 17 U/l (0-40); Albumin/Globulin Ratio 0.9 (1.0-2.3); Alkaline Phosphatase 147 U/L (39-117); Bilirubin,Direct < 0.2 mg/dL (0.0-0.3); Blood Urea Nitrogen 10 mg/dl (8-23); Gamma Glutamyl Transpeptidase 230 U/L (8-61); Magnesium 1.9 mg/dL (1.6-2.5)
[2016-11-23] MEDS: HYDROCODONE/APAP 7.5/325MG TABLET PO PRN (09:46)
[2016-11-23 10:36] LABS: Band Neutrophils % 4 % (0-10); Lymphocytes % 11 % (15-49); Monocytes % (Manual) 6 % (1-12); Platelet Estimate NORMAL (NORMAL); RBC Morphology NORMAL (NORMAL); Segmented Neutrophils % 78 % (38-78)
--- NOTE | 2016-11-24 15:59 | Non-GYN Cytology Report ---
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 -- NO ATYPICAL OR MALIGNANT CELLS IDENTIFIED. (DMT:alex) COMMENT: The patient's recent diagnosis of a clear cell renal cell carcinoma ([id number]; 08/12/2016) involving the right kidney is noted. Immunohistochemical studies are performed to assess for the possibility of a malignant effusion. These studies are negative. No malignant cells are seen. MICROSCOPIC DESCRIPTION A Thinprep monolayer slide, Olvera Giemsa stained cytospin slide, Diff Quik stained cytospin slide, H/E stained cytospin slide and a cell block slide are reviewed. Each contains numerous macrophages, small lymphocytes, occasional neutrophils and a few reactive mesothelial cells. A few enlarged atypical epithelioid type cells are present within the background and have morphologic resemblance to mesothelial cells. No mitoses, high grade cytologic atypia or necrotic cells are identified. Abundant proteinaceous debris is also present. (DMT:alex) The following immunohistochemical studies are performed on the cell block: Cell Population: Epithelioid cells. WT-1, CK5/6: Highlight a proportion of cells as mesothelial cells. MOC-31: Negative. RCC, CD10: Negative. Interpretation: Reactive mesothelial cells. No malignant cell identified. Some of the tests reported here may not have been cleared or approved by the U.S. Food and Drug Administration (FDA). However, the FDA has determined that such clearance or approval is not necessary. Pursuant to the requirements of CLIA, this laboratory has established and verified the accuracy and precision of all tests, and additional information about these tests is available upon request. All technical controls are adequate. EXTERNAL COMMENT Electronically Signed by: Jesús Palacio M.D.
== END 2016-11-23 10:00 | disposition short-term general hospital (02) | DRG 871 ==
LOC: ED 09:10 → MEDSUR 12:30 → ICU 11-18 00:10
PROVIDERS: ADMIT Internal Medicine; ATTEND Internal Medicine

== ENCOUNTER 2017-09-23 20:24 | Observation (INO) ==
[2017-09-23] MEDS ORDERED: IOPAMIDOL 100 ML BOTTLE IV ONE (20:25)
--- NOTE | 2017-09-23 21:11 | Emergency Department Note ---
Eye Problem HPI - General Chief complaint: Eye Problems Stated complaint: Blurred vision Time Seen by Provider: 09/23/17 20:31 Source: patient Mode of arrival: ambulatory Limitations: no limitations - History of Present Illness HPI Narrative: 72-year-old male presents with double vision that he states started 6-1/2 hours ago. He was seen in July for strokelike symptoms that included blurred/double vision. He has a history of CVA, hypertension, seizures, traumatic brain injury. He also at his last visit was diagnosed with Dilantin toxicity. He is still taking this. He states he has been having issues with his balance for a long time now. He denies any significant weakness at this time just blurred vision and double vision. - Related Data Home Medications Medication Instructions Recorded Confirmed clonidine HCl 0.2 mg tablet 0.2 mg PO TID 30 Days #90 tab 01/01/15 09/23/17 labetalol 300 mg tablet 300 mg PO TID 30 Days #90 tab 01/01/15 09/23/17 lisinopril 20 mg tablet 20 mg PO DAILY 30 Days #30 01/01/15 09/23/17 phenytoin sodium extended 100 mg 300 mg PO TID 30 Days #270 cap 01/01/15 capsule potassium chloride ER 10 mEq 20 meq PO BID 30 Days #60 01/01/15 09/23/17 capsule,extended release prazosin 1 mg capsule 2 mg PO HS 30 Days #60 cap 01/01/15 09/23/17 Hydrochlorothiazide [Oretic] 12.5 mg PO DAILY 09/23/17 09/23/17 Ketoconazole [Nizoral] 200 mg PO BID 09/23/17 09/23/17 metFORMIN HCL [Glucophage] 1,000 mg PO BID 09/23/17 09/23/17 Previous Rx's Medication Instructions Recorded tamsulosin 0.4 mg capsule 0.4 mg PO HS #30 cap 06/24/17 solifenacin 5 mg tablet 5 mg PO DAILY #30 tab 06/29/17 Allergies Allergy/AdvReac Type Severity Reaction Status Date / Time cephalexin [From KEFLEX] Allergy Intermediate HIVES Verified 07/05/17 14:42 levofloxacin [From Levaquin] Allergy Intermediate Hives Verified 07/05/17 14:42 Penicillins Allergy Intermediate HIVES Verified 07/05/17 14:42 Review of Systems All systems ED: reviewed and negative except as stated. Past Medical History - Past Medical History Medical history: Reports: aortic aneurysm, arthritis, cancer (Renal cell and prostate), COPD, CVA (2005), DM, hypertension, osteoporosis, seizures, other ( Peptic ulcer disease, traumatic brain injury as a child) Psychiatric history: Reports: no psych history Surgical history ED: Reports: appendectomy, cataract, cholecystectomy, other ( Craniotomy, right knee, partial nephrectomy, prostate seeds) Family history: Reports: non-contributory - Social History smoking status: Former smoker Alcohol use: Reports: Unknown (Denies current alcohol use but prior alcoholism.) Drug use: Reports: other (Polysubstance abuse history) Physical Exam Limitations: no limitations General appearance: alert, other (Lipsmacking movements that are repetitive. He is fidgeting but the extremity fidgeting gets better with distraction. The lipsmacking does not improve with distraction) Head: atraumatic Eye: Present: normal appearance, visual desir intact (Trouble identifying how many fingers are being held up in his right visual desir. 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 The right eye does not turn inward and this is when he gets the double vision and dizziness). Absent: conjunctival injection Neck: Present: normal inspection, full ROM Chest: Present: normal inspection, symmetric chest wall rise Respiratory: Present: normal lung sounds bilaterally Cardiovascular: Present: regular rate, normal heart sounds Abdominal: Present: soft, normal bowel sounds. Absent: tenderness Extremities: Present: normal inspection, full ROM Cranial nerves: EOM function (II, III, IV, ): Abnormal Right (Cranial nerves III palsy on the right), facial sensation (V): Abnormal Right (Mild decrease in cheek sensation on the right), facial palsy (VII): Normal, gag reflex (IX): Normal, spinal accessory function (XI): Normal, tongue deviation (XII): Normal Motor strength - LUE: 5/5 Motor strength - RUE: 5/5 Motor strength - LLE: 5/5 Motor strength - RLE: 5/5 Coma Scale Eye Opening: Spontaneous Coma Scale Motor Response: Obeys Commands Coma Scale Verbal Response: Oriented Coma Scale Total: 15 Psychiatric: Present: normal affect, normal mood Skin: Present: warm, dry, intact Course Course Narrative: Report given to Dr. Casper. He will continue care of the patient Patient has NIH score of 3 and ABCD2 score of 6 Vital Signs Temperature 97.9 F 09/23/17 20:25 Pulse Rate 78 09/23/17 20:25 Respiratory Rate 16 09/23/17 20:25 Blood Pressure 164/86 09/23/17 20:25 Pulse Oximetry (%) 94 09/23/17 20:25 Temperature 97.9 F 09/23/17 20:25 Pulse Rate 73 09/23/17 21:46 Respiratory Rate 20 09/23/17 21:46 Blood Pressure 158/88 09/23/17 21:46 Pulse Oximetry (%) 96 09/23/17 21:46 Eye - Lab Data Result diagrams: 09/23/17 21:00 09/23/17 21:00 Lab Results 09/23/17 09/23/17 09/23/17 Range/Units 21:00 21:00 21:08 POC Hct 33.0 L (41.0-55.0) % POC PT 11.1 L (11.9-14.5) sec POC INR 0.9 (0.9-1.2) POC Sodium 137 (133-145) mmol/L POC Potassium 3.9 (3.3-5.1) mmol/L POC Chloride 102 (96-108) mmol/L POC Total CO2 24 (22-30) mmol/L POC BUN 12 (8-23) mg/dl POC Creatinine 0.7 (0.7-1.2) mg/dl POC Glucose 103 (70-105) mg/dL POC WB Ioniz Calcium 1.07 L (1.16-1.32) mmol/L Phenytoin Dose Not Reportable Pheny Last Dose Time Not Reportable Disposition Pt seen by [facility]/PA only: No Referrals: Ariel Mahajan MD [Primary Care Provider] -
[2017-09-23 22:00] LABS: Basophils # (Auto) 0.1 K/mcL (0.0-0.3); Eosinophils # (Auto) 0.4 K/mcL (0.0-0.7); Eosinophils % (Auto) 6.9 % (0.0-7.0); Granulocytes % (Auto) 58.9 % (38.0-78.0); Lymphocytes # (Auto) 1.5 K/mcL (1.5-4.8); Lymphocytes % (Auto) 23.4 % (15.5-49.0); Mean Cell Volume 91.9 fL (80.0-100.0); Mean Corpuscular HGB Conc 33.8 g/dL (31.0-36.0); Mean Corpuscular Hemoglobin 31.1 pg (26.0-34.0); Monocytes # (Auto) 0.6 K/mcL (0.1-0.9); Monocytes % (Auto) 9.8 % (1.0-12.0); Platelet Count 310 K/mcL (140-440); RBC 3.83 M/mcL (4.50-5.90); Red Cell Distribution Width 12.4 % (11.5-14.5)
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
[2017-09-23 22:21] LABS: ALT/SGPT 14 U/l (0-40); Albumin 4.3 gm/dL (3.2-5.2); Albumin/Globulin Ratio 1.8 (1.0-2.3); Alkaline Phosphatase 114 U/L (39-117); Blood Urea Nitrogen 12 mg/dl (8-23)
[2017-09-23] MEDS ORDERED: ATORVASTATIN 40 MG TABLET PO ONE (22:49)
[2017-09-23] MEDS ORDERED: GADOTERIDOL INJ 15 ML/VIAL IV ONE (23:08)
[2017-09-23 23:18] LABS: Appearance,Urine CLEAR; Bilirubin,Urine NEG (NEG); Color,Urine YELLOW; Glucose,Urine (UA) NEGATIVE (NEG); Leukocyte Esterase,Urine NEG /uL (NEG); Protein,Urine NEG (NEG); Specific Gravity,Urine 1.019 (1.000-1.035); Urine Blood NEG mg/dL (<0.03); Urobilinogen,Urine NEG (NEG)
[2017-09-23] MEDS ORDERED: ONDANSETRON 4 MG/2 ML VIAL IV PRN (23:27)
[2017-09-23] MEDS ORDERED: CLONIDINE HCL 0.2 MG PO SCH (23:43)
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
[2017-09-24] MEDS ORDERED: hydrALAZINE 20 MG/ML VIAL IV PRN (00:12)
[2017-09-24] MEDS ORDERED: ATORVASTATIN 20 MG TABLET PO ONE (00:16)
[2017-09-24] MEDS ORDERED: cloNIDine HCL 0.1 MG TABLET ONE (00:24)
[2017-09-24] MEDS: ACETAMINOPHEN 325 MG TABLET PO PRN ×2 (02:58→23:38)
[2017-09-24] MEDS ORDERED: ACETAMINOPHEN 325 MG TABLET PO ONE (03:00)
[2017-09-24 05:37] LABS: Estimated Average Glucose(eAG) 131 mg/dL; Hemoglobin A1C 6.2 % HGB (4.0-6.0)
[2017-09-24 05:45] LABS: HDL Cholesterol 46 mg/dl (>40); LDL Cholesterol,Calculated 97 mg/dl (SEE CHART)
[2017-09-24] MEDS: 0.9 % SODIUM CHLORIDE 10 ML SYRINGE IV SCH ×3 (05:48→21:34)
--- NOTE | 2017-09-24 08:13 | Cat Scan Report ---
History: New stroke symptoms with blurred vision TECHNIQUE: The brain was imaged without contrast at 2.5 mm intervals. Radiation exposure was limited using dose reduction technology. There is a craniotomy defect laterally in the left frontal bone. Beneath the defect there is a focal area of encephalomalacia in the left frontal lobe. This is a chronic stable finding. Patient has mild generalized cerebral atrophy. Ventricles are prominent but proportionate to the atrophy. There is patchy white matter disease in the frontal and parietal lobes consistent with age-related ischemia or degeneration. No acute infarct is detected. There is no hemorrhage or mass effect. IMPRESSION: No evidence of acute infarct. Dr. Casper was called with results at 10:00 PM on 09/23/17 Interpreted and Authenticated by: Ajay Daniels 09/24/17
--- NOTE | 2017-09-24 08:23 | Cat Scan Report ---
History: New stroke symptoms with blurred vision TECHNIQUE: Nonionic contrast was injected. Arterial phase images were acquired from skull base to the vertex. Sagittal, coronal and MIPS images were created. Radiation exposure was limited using dose reduction technology. FINDINGS: There is a moderate amount of plaque in the cavernous portions and supraclinoid portions of both internal carotids. There is a moderate stenosis which may be 70-80% in the supraclinoid portion of the right internal carotid. There is poststenotic dilatation. Less than 50% stenosis is present in the supraclinoid portion of the left internal carotid. There is mild tapered stenosis of the A1 segment of the left anterior cerebral. This is less than 50%. Distal branches of the anterior cerebral are normal. There is mild irregularity of the wall of the M1 segments of both middle cerebral arteries. These are not causing stenosis and the distal branches are normal. In the distal portion of the basilar artery there is a long side segment moderate stenosis with approximately 60-70% narrowing. There is poststenotic dilatation. There is also a focal moderate stenosis at the origin of the P1 segment left posterior cerebral. This approximate 60-75%. Less than 50% stenosis is present at the P1 segment of the right posterior cerebral. The posterior fossa circulation is otherwise normal. There is no evidence of vascular occlusion or thrombus within the intracranial arteries or veins. There has been no significant change since 07/30/17. IMPRESSION: Hemodynamically significant stenoses in the supraclinoid portion of the right internal carotid, P1 segment of the left posterior cerebral artery and distal portion of the basilar artery. No evidence of vascular occlusion or thrombus Interpreted and Authenticated by: Ajay Daniels 09/24/17
[2017-09-24] MEDS: LISINOPRIL 20 MG TABLET PO SCH (08:47)
[2017-09-24] MEDS: FAMOTIDINE 20 MG TABLET PO SCH ×2 (08:47→21:35)
[2017-09-24] MEDS: HEPARIN 5,000 UNIT/ML VIAL SQ SCH ×2 (08:47→21:35)
[2017-09-24] MEDS: POTASSIUM CHLORIDE 20 MEQ TABLET PO SCH ×2 (08:47→17:28)
[2017-09-24] MEDS: cloNIDine HCL 0.1 MG TABLET PO SCH ×3 (08:47→21:34)
[2017-09-24] MEDS: PHENYTOIN SOD 100 MG CAPSULE PO SCH ×2 (08:47→21:35)
[2017-09-24] MEDS: ASPIRIN 81 MG TAB.CHEW PO SCH (08:47)
[2017-09-24] MEDS: LABETALOL 100 MG TABLET PO SCH ×3 (08:47→21:34)
[2017-09-24] MEDS: metFORMIN 500 MG TABLET PO SCH ×3 (08:48→17:38)
[2017-09-24] MEDS: HYDROCHLOROTHIAZIDE 12.5 MG CAPSULE PO SCH (08:48)
[2017-09-24] MEDS ORDERED: LORazepam 2 MG/ML VIAL IV ONE (08:50)
[2017-09-24] MEDS ORDERED: PHENYTOIN SOD 100 MG CAPSULE PO SCH (09:00)
[2017-09-24] MEDS ORDERED: CLONIDINE HCL 0.2 MG PO SCH (09:00)
--- NOTE | 2017-09-24 09:24 | XRay Report ---
HISTORY: Reason for Exam:weakness FINDINGS: A small streaky infiltrate is developing above the left diaphragm. A much larger zone of consolidated lung parenchyma was seen in this location on 11/23/16. The right lung is clear. The heart size is normal. There is stable aneurysmal dilatation of the aortic arch. It Measures 6.4 cm in transverse diameter. IMPRESSION: Small recurrent infiltrate in the left lower lobe, superimposed upon some underlying residual scar tissue Interpreted and Authenticated by: Ajay Daniels 09/24/17
--- NOTE | 2017-09-24 10:07 | Internal Med Progress Note ---
Medical - PN: Subj Patient information: Note initiated : 09/24/17 at 10:04 am Service Date, if different from initiated Date: [] Patient: Jose R Rodríguez 72 y/o M admitted on 09/23/17 for Blurred vision. Chief Complaint: [] Interval history: Mr. Rodríguez is a 72 year old Male with h/o cva, dm, htn, not on asa or statin, presents to the ER today because of diplopia since 1 this afternoon. The patients partner also reports that he has not been feeling well, the patient has had dizziness, and vertigo symptoms. The patient reports that he is unable to focus and read now, he sees double. He believes its the Right eye thats causing the issues. He also reports worsening of his balance. He denies slurring of speech or any decreased senation, but the partner noted that his right side of the face had a droop which has since resolved. He also had some weakness on the right side. In the ER the patient only had diplopia symptoms, given his high risk factores ABCD score of 4, he was admitted to the hospital for further observation and workup. The patient had more or less similar presentation in july, when he had CT head , CTA head and neck, as well as MRI head which were neg, he did have atherosclerotic disease in the neck, but no sigfnicant stenosis. His dilantin level was high at that time, and his symptoms were attributed to same. His dose of dilantin was cut back, dilantin level this admit is above the target, but no very high. The patients partner also notes that he is getting weaker, and his ticks/ orofacial twiches have worsened over last few days. The patient denies any headache, difficulty in swallowing, changes in hearing, denies any abnormal skin sensations, denies any skin rashes or joint pains, no acute chest pain no new shortness of breath no nausea no vomiting no bowel complaints no urinary complaints. He has a history of depression no acute worsening. No bleeding reported. He does note he has a remote history of an ulcer but has never had a history of bleeding. He has been told not to take aspirin because of his kidney issues and liver issues, I believe that this is the high dose aspirin that he was told to avoid and not the low-dose aspirin. Patient also is not on a statin is not sure why. 09/24 pt seen examined, no acute overnight events No new neurological deficit his twiches seem better he notes his vision is improving his weakness on left side is unchnaged, I this this is likely chronic in nature plan to get echo and mri today no events reported on tele. Pertinent ROS: Denies headache, dizziness Denies chest pain, palpitations Denies cough or shortness of breath Denies abdominal pain, nausea or vomiting. - Constitutional Vitals: Vital Signs Temp Pulse Resp BP Pulse Ox 98.4 F 77 18 191/99 96 09/24/17 08:01 09/24/17 09:01 09/24/17 08:01 09/24/17 09:01 09/24/17 09:01 Period Temp Pulse Resp BP Sys/Ahumada Pulse Ox Last 24 Hr 97.8 F-98.4 F 73-78 10-20 144-203/74-117 93-98 Intake and Output 09/23/17 09/24/17 09/24/17 21:59 05:59 13:59 Intake Total 380 / 380 240 / 240 Output Total 1100 / 1100 625 / 625 Balance -720 / -720 -385 / -385 Weight 170 lb 168 lb 6.4 oz Intake & Output: Intake & Output 09/23/17 09/24/17 09/24/17 21:59 05:59 13:59 Intake Total 380 / 380 240 / 240 Output Total 1100 / 1100 625 / 625 Balance -720 / -720 -385 / -385 Weight 170 lb 168 lb 6.4 oz Intake: Oral 380 / 380 240 / 240 Output: Void Amount 1100 / 1100 625 / 625 Other: Meal egg salad sandwich Breakfast Percent of Meal Consumed 100% 100% Feeding Ability Independent Assist with Tray Set Up # Voids 1 Exam: Constitutional; Afebrile, cooperative, alert, not in distress. Eyes- No icterus, , No periorbital swelling Ears- Ext ear normal, hearing normal to conversation. Neck- Midline trachea, supple Respiratory system: Air Entry equal on both sides, No crackles or wheezing, no rhonchi. CVS- Rate rhythm regular, S1,S2 heard, no gallop, no rub. 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 Medical - PN: Obj Da - Labs CBC & Chem 7: 09/23/17 21:00 09/23/17 21:00 Labs: Abnormal Lab Results 09/24/17 09/23/17 09/23/17 03:30 21:08 21:00 RBC Hgb Hct POC Hct 33.0 L MPV POC PT 11.1 L APTT 47 H Anion Gap 17.0 H Hemoglobin A1c 6.2 H Calcium 8.3 L POC WB Ioniz Calcium 1.07 L 09/23/17 21:00 RBC 3.83 L Hgb 11.9 L Hct 35.2 L POC Hct MPV 7.3 L POC PT APTT Anion Gap Hemoglobin A1c Calcium POC WB Ioniz Calcium Meds: Medications Acetaminophen (Tylenol) 650 mg PO Q6HP PRN PRN Reason: PAIN/FEVER > 101 Last Admin: 09/24/17 02:58 Dose: 650 mg Aspirin (Aspirin) 81 mg PO DAILY [facility] Last Admin: 09/24/17 08:47 Dose: 81 mg Atorvastatin Calcium (Lipitor) 40 mg PO HS [facility] Clonidine HCl (Catapres) 0.2 mg PO TID [facility] Last Admin: 09/24/17 08:47 Dose: 0.2 mg Famotidine (Pepcid) 20 mg PO BID [facility] Last Admin: 09/24/17 08:47 Dose: 20 mg Heparin Sodium (Porcine) (Heparin) 5,000 unit SQ Q12 [facility] Last Admin: 09/24/17 08:47 Dose: 5,000 unit Hydralazine HCl (Apresoline) 10 mg IV Q4-6HP PRN PRN Reason: Hypertension Hydrochlorothiazide (Oretic) 12.5 mg PO DAILY [facility] Last Admin: 09/24/17 08:48 Dose: 12.5 mg Labetalol HCl (Trandate) 300 mg PO TID [facility] Last Admin: 09/24/17 08:47 Dose: 300 mg Lisinopril (Zestril) 20 mg PO DAILY [facility] Last Admin: 09/24/17 08:47 Dose: 20 mg Metformin HCl (Glucophage) 1,000 mg PO BIDCC [facility] Last Admin: 09/24/17 08:48 Dose: 1,000 mg Ondansetron HCl (Zofran) 4 mg IV Q4HP PRN PRN Reason: Nausea And Vomiting Solifenacin Succinate [Vesicare] 5 Mg Tablet 1 dose PO DAILY [facility] Phenytoin Sodium (Dilantin) 300 mg PO BID [facility] Last Admin: 09/24/17 08:47 Dose: 300 mg Potassium Chloride (Kdur) 20 meq PO BIDCC [facility] Last Admin: 09/24/17 08:47 Dose: 20 meq Prazosin HCl (Minipress) 2 mg PO HS [facility] Sodium Chloride (Saline Flush) 10 ml IV Q8 [facility] Last Admin: 09/24/17 05:48 Dose: 10 ml Tamsulosin HCl (Flomax) 0.4 mg PO [facility] Medical - PN: A/P - Time Spent With Patient Total time spent is greater than 50% in coordination of care (as documented) at patient's floor/unit and/or counseling patient: - Narrative A/P Narrative: A/P TIA vs drug reaction: await MRI head and echo, Head CT was neg, CTA head showed Hemodynamically significant stenoses in the supraclinoid portion of the right internal carotid, P1 segment of the left posterior cerebral artery and distal portion of the basilar artery. on asa and statin now, HTN: Bp stable with home meds Seizure disorder/ Chorea movements- outpatient neurology evaluation planned. Resume rest of home medications as appropriate, ot/pt/st eval and intervention DVT hep sq Diet cardiac DNR code status. Medical - PN: Qual - Stroke Onset of Symptoms Date: 09/23/17 Onset of Symptoms Time: 12:00 Symptom Onset Unknown: Yes - VTE Deep Vein Thrombosis/Pulmonary Embolism Present on Admission: No
[2017-09-24] MEDS: Solifenacin Succinate [Vesicare] 5 MG Tablet PO SCH (10:10)
[2017-09-24 10:14] LABS: ALT/SGPT 14 U/l (0-40); Albumin 3.9 gm/dL (3.2-5.2); Albumin/Globulin Ratio 1.7 (1.0-2.3); Alkaline Phosphatase 104 U/L (39-117); Bilirubin,Direct < 0.2 mg/dL (0.0-0.3); Blood Urea Nitrogen 11 mg/dl (8-23); Gamma Glutamyl Transpeptidase 101 U/L (8-61); Uric Acid 4.6 mg/dL (2.5-8.0)
[2017-09-24 10:24] LABS: Basophils # (Auto) 0 K/mcL (0.0-0.3); Basophils % (Auto) 0.5 % (0.0-2.0); Eosinophils # (Auto) 0.4 K/mcL (0.0-0.7); Eosinophils % (Auto) 5.6 % (0.0-7.0); Granulocytes % (Auto) 67.7 % (38.0-78.0); Lymphocytes # (Auto) 1.2 K/mcL (1.5-4.8); Lymphocytes % (Auto) 17.1 % (15.5-49.0); Mean Cell Volume 94.9 fL (80.0-100.0); Mean Corpuscular HGB Conc 33.6 g/dL (31.0-36.0); Mean Corpuscular Hemoglobin 31.8 pg (26.0-34.0); Monocytes # (Auto) 0.7 K/mcL (0.1-0.9); Monocytes % (Auto) 9.1 % (1.0-12.0); Platelet Count 262 K/mcL (140-440); RBC 3.66 M/mcL (4.50-5.90)
--- NOTE | 2017-09-24 15:08 | Magnetic Resonance Report ---
CLINICAL INFORMATION: History: Stroke symptoms with blurred vision, seizures and history of cancer of the kidney and prostate COMPARISON: Head CT and CT angiogram on 09/23/17, brain MRI on 05/31/14 TECHNIQUE: Sagittal T1 FLAIR, axial diffusion ADC, T1 FLAIR, T2 FLAIR propeller, T2 propeller gradient, T1 post Magnevist and coronal T1 FLAIR post Magnevist images were acquired. Patient received by mouth Ativan prior to the exam. FINDINGS: There is motion artifact on some of the pulse sequences. There is no evidence of an acute infarct. No hemorrhage or metastasis are present. There is also no primary brain tumor. There is a zone of encephalomalacia with gliosis in the adjacent white matter at the boundary of the left frontal and parietal lobes. There is an overlying craniotomy defect. This is a chronic stable finding. There are age-related degenerative changes with mild cerebral atrophy. The ventricles are prominent but proportionate to the atrophy. The brainstem, cerebellum and basal ganglia are normal. The postcontrast view show no abnormal enhancement The orbital globes are symmetric. The patient may have had prior bilateral cataract surgery. Bilateral ethmoid sinusitis is noted.. . 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
[2017-09-24] MEDS ORDERED: ATORVASTATIN 20 MG TABLET PO SCH (21:00)
[2017-09-24] MEDS ORDERED: TAMSULOSIN 0.4 MG CAPSULE PO SCH (21:00)
[2017-09-24] MEDS ORDERED: PRAZOSIN 1 MG CAPSULE PO SCH (21:00)
[2017-09-25] MEDS: 0.9 % SODIUM CHLORIDE 10 ML SYRINGE IV SCH (06:35)
[2017-09-25 07:15] LABS: Basophils # (Auto) 0 K/mcL (0.0-0.3); Basophils % (Auto) 0.4 % (0.0-2.0); Eosinophils # (Auto) 0.4 K/mcL (0.0-0.7); Granulocytes % (Auto) 66.3 % (38.0-78.0); Lymphocytes # (Auto) 1.2 K/mcL (1.5-4.8); Lymphocytes % (Auto) 19.2 % (15.5-49.0); Mean Cell Volume 94.1 fL (80.0-100.0); Monocytes # (Auto) 0.5 K/mcL (0.1-0.9); Monocytes % (Auto) 8.1 % (1.0-12.0); Platelet Count 265 K/mcL (140-440); RBC 3.81 M/mcL (4.50-5.90); Red Cell Distribution Width 13.1 % (11.5-14.5)
[2017-09-25 07:38] LABS: ALT/SGPT 12 U/l (0-40); Albumin 3.9 gm/dL (3.2-5.2); Albumin/Globulin Ratio 1.4 (1.0-2.3); Alkaline Phosphatase 101 U/L (39-117); Bilirubin,Direct < 0.2 mg/dL (0.0-0.3); Blood Urea Nitrogen 14 mg/dl (8-23); Gamma Glutamyl Transpeptidase 105 U/L (8-61)
[2017-09-25] MEDS: metFORMIN 500 MG TABLET PO SCH (08:12)
[2017-09-25] MEDS: HEPARIN 5,000 UNIT/ML VIAL SQ SCH (08:26)
[2017-09-25] MEDS: LABETALOL 100 MG TABLET PO SCH (08:26)
[2017-09-25] MEDS: LISINOPRIL 20 MG TABLET PO SCH (08:27)
[2017-09-25] MEDS: ASPIRIN 81 MG TAB.CHEW PO SCH (08:27)
[2017-09-25] MEDS: POTASSIUM CHLORIDE 20 MEQ TABLET PO SCH (08:27)
[2017-09-25] MEDS: Solifenacin Succinate [Vesicare] 5 MG Tablet PO SCH (08:28)
[2017-09-25] MEDS: PHENYTOIN SOD 100 MG CAPSULE PO SCH (08:28)
[2017-09-25] MEDS: cloNIDine HCL 0.1 MG TABLET PO SCH (08:28)
[2017-09-25] MEDS: HYDROCHLOROTHIAZIDE 12.5 MG CAPSULE PO SCH (08:28)
[2017-09-25] MEDS: FAMOTIDINE 20 MG TABLET PO SCH (08:28)
[2017-09-25] MEDS: ACETAMINOPHEN 325 MG TABLET PO PRN (08:29)
--- NOTE | 2017-09-25 11:33 | Discharge Summary ---
Medical - DS: Prov Patient information: Note initiated : 09/25/17 at 11:29 am Service Date, if different from initiated Date: [] Patient: Jose R Rodríguez 72 y/o M admitted on 09/23/17 for Blurred vision. Chief Complaint: [] Date of admission: 09/23/17 23:07 Discharge date: 09/25/17 Primary care physician: Ariel Mahajan Discharging clinician: Juve Brown Medical - DS: Meds - Discharge Medications Prescriptions: Aspirin [Aspirin EC] 81 mg PO DAILY #90 tablet. Atorvastatin [Lipitor] 40 mg PO HS #90 tab Active and Home Medications: Home Medications clonidine HCl 0.2 mg tablet 0.2 mg PO TID 30 Days #90 tab 01/01/15 [History Confirmed 09/23/17 Last Taken 11/16/16 21:00] labetalol 300 mg tablet 300 mg PO TID 30 Days #90 tab 01/01/15 [History Confirmed 09/23/17 Last Taken 11/16/16 21:00] lisinopril 20 mg tablet 20 mg PO DAILY 30 Days #30 01/01/15 [History Confirmed 09/23/17 Last Taken 11/17/16 06:00] phenytoin sodium extended 100 mg capsule 300 mg PO BID 30 Days #270 cap [History Confirmed 09/24/17 Last Taken 11/17/16 07:00] potassium chloride ER 10 mEq capsule,extended release 40 meq PO QAMCC 30 Days # 60 01/01/15 [History Confirmed 09/24/17 Last Taken 11/16/16 21:00] prazosin 1 mg capsule 2 mg PO HS 30 Days #60 cap 01/01/15 [History Confirmed Last Taken 11/16/16 21:00] tamsulosin 0.4 mg capsule 0.4 mg PO HS #30 cap 06/24/17 [Rx Confirmed 09/23/17 Last Taken Unknown] solifenacin 5 mg tablet 5 mg PO DAILY #30 tab 06/29/17 [Rx Confirmed 09/23/17 Last Taken Unknown] Hydrochlorothiazide [Oretic] 12.5 mg PO DAILY 09/23/17 [History Confirmed Last Taken Unknown] Ketoconazole [Nizoral] 200 mg PO BID 09/23/17 [History Confirmed 09/23/17 Last Taken Unknown] metFORMIN HCL [Glucophage] 1,000 mg PO BID 09/23/17 [History Confirmed 09/23/17 Last Taken Unknown] Ipratropium/Albuterol [Duoneb] 3 ml NEB Q6HP PRN 09/24/17 [History Confirmed Last Taken Unknown] Medical - DS: Hosp Hospital course: Mr. Rodríguez is a 72 year old Male with h/o cva, dm, htn, not on asa or statin, presents to the ER today because of diplopia since 1 this afternoon. The patients partner also reports that he has not been feeling well, the patient has had dizziness, and vertigo symptoms. The patient reports that he is unable to focus and read now, he sees double. He believes its the Right eye thats causing the issues. He also reports worsening of his balance. He denies slurring of speech or any decreased sensation, but the partner noted that his right side of the face had a droop which has since resolved. He also had some weakness on the right side. In the ER the patient only had diplopia symptoms, given his high risk factors ABCD score of 4, he was admitted to the hospital for further observation and workup. The patient had more or less similar presentation in july, when he had CT head , CTA head and neck, as well as MRI head which were neg, he did have atherosclerotic disease in the neck, but no sigfnicant stenosis. His dilantin level was high at that time, and his symptoms were attributed to same. His dose of dilantin was cut back, dilantin level this admit is above the target, but no very high. The patients partner also notes that he is getting weaker, and his ticks/ orofacial twiches have worsened over last few days. He has been told not to take aspirin because of his kidney issues and liver issues, I believe that this is the high dose aspirin that he was told to avoid and not the low-dose aspirin. Patient also is not on a statin is not sure why. The patient was monitored in the hospital, his symtpoms improved in terms of twiching and diplopia, still has some blurry vision, he had no events on tele, his Echo showed normal lvef, mildy dilated aorta, no thrombus. The patient had MRI head with and without contrast, which was neg for stroke or any other masses The patient was seen by PT and noted he needed ongoing rehab with home health. The patient has a CTA head which shows multiple significant vascular lesions, the patient will be referred to Dr Hernandez for further evaluation and possibe intervention if warranted. At this time, I am not sure if the worsening of patients, gait is unsteady uses walker, he has old cva and I believe his mild right sided weakness is chronic. His diplopia and blurry vision is a concern I am unable to explain this with CVA. His dilantin level was mildly elevated at 23, he remains on ketoconazole by his PCP The patient was recently admitted for similar complaints at [facility] and his dilantin level then was higher around 32-33. his dose of dilantin was cut back to twice daily dosing. According to the patient he has been referred to a neurologist. I belive some of the patients side effects with gait, twiches, diplopia, could be accounted by adverse reactions to dilantin. I will leave the decision to change anti seizure meds to the neurologist. The rest of the stay in the hospital was uneventful, he is back to baseline, slight blurring remains, advised to follow up with an teacher theater arts Given his risk of CVA is high, I have started him on asa 81mg once daily with food, and on atorvastatin 40mg daily. Discharge diagnosis: diplopia, blurry vision - Time Spent with Patient Total time spent providing and/or coordinating discharge services: Less than 30 minutes Medical - DS: Exam - Constitutional Vitals: Vital Signs Temp Resp BP Pulse Ox 09/25/17 08:01 97.7 F 18 177/104 95 09/25/17 03:51 97.4 F 15 169/88 92 09/25/17 00:01 97.8 F 173/90 93 09/24/17 19:20 98.4 F 24 H 132/83 94 09/24/17 15:48 97.1 F 20 158/85 95 09/24/17 12:00 98.5 F 20 167/98 96 Intake and Output 09/24/17 09/25/17 09/25/17 21:59 05:59 13:59 Intake Total 780 / 780 400 / 400 Output Total 375 / 375 200 / 200 3300 / 3300 Balance 405 / 405 -200 / -200 -2900 / -2900 Intake: Oral 780 / 780 400 / 400 Output: Void Amount 375 / 375 200 / 200 3300 / 3300 # of times incontinent of urine 0 / 0 Other: Meal Dinner Breakfast Percent of Meal Consumed 100% 100% Feeding Ability Assist with Tray Set Up Independent # Voids 1 1 Weight 167 lb 1.6 oz Additional comments: Constitutional; Afebrile, cooperative, alert, not in distress. Eyes- No icterus, , No periorbital swelling Ears- Ext ear normal, hearing normal to conversation. Neck- Midline trachea, supple Respiratory system: Air Entry equal on both sides, No crackles or wheezing, no rhonchi. CVS- Rate rhythm regular, S1,S2 heard, no gallop, no rub. 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, moving all extremities, unchanged exam Medical - DS: Data Labs on day of discharge: Labs from last 24 hours 09/25/17 09/25/17 06:37 06:37 WBC 6.0 RBC 3.81 L Hgb 12.2 L Hct 35.9 L MCV 94.1 MCH 32.0 MCHC 34.0 RDW 13.1 Plt Count 265 MPV 7.1 L Gran % 66.3 Lymph % (Auto) 19.2 White % (Auto) 8.1 Eos % (Auto) 6.0 Baso % (Auto) 0.4 Gran # 4.0 Lymph # (Auto) 1.2 L White # (Auto) 0.5 Eos # (Auto) 0.4 Baso # (Auto) 0 Sodium 135 Potassium 4.0 Chloride 98 Carbon Dioxide 25 Anion Gap 12.0 BUN 14 Creatinine 0.7 GFR Calculation 96 Glucose 113 H Uric Acid 4.0 Calcium 8.6 Phosphorus 3.6 Magnesium 1.8 Total Bilirubin 0.2 Direct Bilirubin < 0.2 GGT 105 H AST 11 ALT 12 Alkaline Phosphatase 101 Lactate Dehydrogenase 134 Total Protein 6.6 Albumin 3.9 Globulin 2.7 Albumin/Globulin Ratio 1.4 Triglycerides 181 H Medical - DS: A/P - Patient/Caregiver Discharge Instructions Activity: increase activity as tolerated Diet: Cardiac Additional Instructions: Please start taking a low dose aspirin 81mg (baby aspirin), take this medication once daily with food. Start on atorvastatin 40mg once daily. This is to help reduce risk of stroke Please Call Dr Hernandez office for an appointment, he will evaluate your blood vessels and need for intervention. Please have your eyes checked by an teacher theater arts or your rib puller Take your medications as prescribed by your PCP. Please make sure you are seen by a neurologist, I would advise you talk to the neurologist regarding your anti seizure medications and see if there is any alternative available. Go to the ER if worsening condition, chest pain, shortness of breath or any other acute concern. Follow up with PCP in 1 week - Follow up Plan Follow up with: Ariel Mahajan MD [Primary Care Provider] - Antonio Hernandez MD [Physician] - Disposition: Home Health Service Prognosis: Fair Rehab Potential: Fair I certify that the patient requires SNF services: No Overall status at discharge: patient is progressing back to baseline Medical - DS: Qual - VTE Deep Vein Thrombosis/Pulmonary Embolism Present on Admission: No
== END 2017-09-25 14:05 | disposition home health service (06) ==
LOC: ED 20:24 → ICU 20:24
PROVIDERS: ADMIT Internal Medicine; ATTEND Internal Medicine

== ENCOUNTER 2024-12-03 06:16 | Inpatient (IN) ==
[2024-12-03] MEDS ORDERED: IOPAMIDOL 100 ML BOTTLE IV ONE (06:17)
[2024-12-03] MEDS: ACETAMINOPHEN 1,000 MG/100 ML BAG IV ONE (06:40)
[2024-12-03] MEDS: 0.9 % SODIUM CHLORIDE 1,000 ML IV ONE (06:40)
[2024-12-03 07:02] LABS: ALT/SGPT 44 U/L (<40); AST/SGOT 45 U/L (<40); Albumin 3.2 gm/dL (3.2-5.2); Albumin/Globulin Ratio 1.0 (1.0-2.3); Alkaline Phosphatase 146 U/L (39-117); Anion Gap 14.0 (8.0-16.0); Bilirubin,Total < 0.2 mg/dL (0.1-1.0); Blood Urea Nitrogen 28 mg/dL (8-23); Calcium 8.2 mg/dL (8.6-10.4); Carbon Dioxide 17 mmol/L (22-30); Chloride 102 mmol/L (96-108); Globulin 3.1 gm/dL (2.2-3.7); Glucose 97 mg/dL (70-105); Potassium 4.3 mmol/L (3.3-5.1); Sodium 133 mmol/L (133-145)
[2024-12-03 07:04] LABS: Basophils # (Auto) 0.02 K/mcL (0.00-0.30); Basophils % (Auto) 0.1 % (0.0-2.0); Eosinophils # (Auto) 0.33 K/mcL (0.00-0.70); Eosinophils % (Auto) 1.7 % (0.0-7.0); Hematocrit 26.9 % (40.1-51.0); Hemoglobin 8.4 g/dL (13.7-17.5); Lymphocytes # (Auto) 0.60 K/mcL (1.50-4.80); Lymphocytes % (Auto) 3.2 % (15.5-49.0); Mean Corpuscular HGB Conc 31.2 g/dL (31.0-36.0); Monocytes # (Auto) 1.60 K/mcL (0.10-0.90); Monocytes % (Auto) 8.5 % (1.0-12.0); Neutrophils % (Auto) 86.2 % (38.0-78.0); Platelet Count 298 K/mcL (140-440); RBC 2.66 M/mcL (4.63-6.08); WBC 18.9 K/mcL (4.5-11.0)
[2024-12-03 07:06] LABS: Bilirubin,Urine Negative (Negative); Color,Urine Yellow; Glucose,Urine (UA) Negative (Negative); Ketones,Urine Negative (Negative); Leukocyte Esterase,Urine Negative /uL (Negative); PH,Urine 5.5 (5.0-9.0); Protein,Urine Negative (Negative); Specific Gravity,Urine 1.010 (1.000-1.035); Urobilinogen,Urine Normal
[2024-12-03 07:45] LABS: INR 1.0 (0.9-1.1); Prothrombin Time 13.8 sec (11.9-14.5)
[2024-12-03] MEDS: CEFEPIME 2 GM VIAL IV ONE (08:31)
[2024-12-03] MEDS: DOXYCYCLINE 100 MG in DEXTROSE 5% IN WATER 100 ML IV ONE (09:27)
[2024-12-03] MEDS: CEFEPIME 1 GM VIAL IV ONE (09:37)
[2024-12-03] MEDS: AZITHROMYCIN 500 MG in DEXTROSE 5% IN WATER 250 ML IV ONE (09:59)
[2024-12-03 11:38] LABS: C-Reactive Protein 9.06 mg/dL (0.03-0.80)
[2024-12-03] MEDS ORDERED: DEXTROSE 50% 50 ML VIAL IV PRN (13:04)
[2024-12-03] MEDS ORDERED: DEXTROSE 31 GM ORAL.SUSP PO PRN (13:04)
[2024-12-03] MEDS ORDERED: SENNOSIDES 1 TABLET PO PRN (13:04)
[2024-12-03] MEDS: IPRATROPIUM/ALBUTEROL 3 ML AMPUL.NEB NEB SCH (14:05)
[2024-12-03] MEDS: LACTATED RINGERS 1,000 ML IV SCH (14:20)
[2024-12-03] MEDS: 0.9 % SODIUM CHLORIDE 10 ML SYRINGE IV SCH (14:21)
[2024-12-03] MEDS: CEFEPIME 2 GM VIAL IV SCH (16:17)
[2024-12-03] MEDS: INSULIN LISPRO 1 UNIT/0.01 ML UNIT SQ SCH (16:19)
[2024-12-03] MEDS ORDERED: traMADol (PP) 50 MG TABLET (#4) PO PRN (19:17)
[2024-12-03] MEDS: VANCOMYCIN PER PHARMACY IV ONE (20:15)
[2024-12-03] MEDS ORDERED: DOXYCYCLINE 100 MG in DEXTROSE 5% IN WATER 100 ML IV SCH (21:00)
[2024-12-03] MEDS: PRAZOSIN 1 MG CAPSULE PO SCH (21:21)
[2024-12-03] MEDS: PHENYTOIN SOD 100 MG CAPSULE PO SCH (21:21)
[2024-12-03] MEDS: TAMSULOSIN 0.4 MG CAPSULE PO SCH ×2 (21:22)
[2024-12-03] MEDS: ATORVASTATIN 40 MG TABLET PO SCH (21:22)
[2024-12-03] MEDS: VANCOMYCIN 1,000 MG in 0.9 % SODIUM CHLORIDE 250 ML IV SCH (21:26)
[2024-12-03] MEDS: CARVEDILOL 6.25 MG TABLET ONE (22:07)
[2024-12-03] MEDS: CARVEDILOL 12.5 MG TABLET PO SCH ×2 (22:07→22:18)
[2024-12-03] MEDS: METHOCARBAMOL 750 MG TABLET PO PRN (22:14)
[2024-12-03] MEDS: ONDANSETRON 4 MG/2 ML VIAL IV PRN (22:30)
[2024-12-04] MEDS ORDERED: VANCOMYCIN PER PHARMACY IV SCH (06:45)
[2024-12-04 06:52] LABS: Basophils # (Auto) 0.02 K/mcL (0.00-0.30); Basophils % (Auto) 0.1 % (0.0-2.0); Eosinophils # (Auto) 0.18 K/mcL (0.00-0.70); Eosinophils % (Auto) 0.9 % (0.0-7.0); Hematocrit 24.4 % (40.1-51.0); Hemoglobin 7.7 g/dL (13.7-17.5); Lymphocytes # (Auto) 0.95 K/mcL (1.50-4.80); Lymphocytes % (Auto) 4.8 % (15.5-49.0); Mean Corpuscular HGB Conc 31.6 g/dL (31.0-36.0); Monocytes # (Auto) 1.17 K/mcL (0.10-0.90); Monocytes % (Auto) 5.9 % (1.0-12.0); Neutrophils % (Auto) 88.0 % (38.0-78.0); Platelet Count 302 K/mcL (140-440); RBC 2.41 M/mcL (4.63-6.08); WBC 19.8 K/mcL (4.5-11.0)
[2024-12-04 07:39] LABS: ALT/SGPT 40 U/L (<40); AST/SGOT 42 U/L (<40); Albumin 2.8 gm/dL (3.2-5.2); Albumin/Globulin Ratio 1.0 (1.0-2.3); Alkaline Phosphatase 139 U/L (39-117); Anion Gap 11.0 (8.0-16.0); Bilirubin,Direct < 0.2 mg/dL (0-0.3); Bilirubin,Total < 0.2 mg/dL (0.1-1.0); Blood Urea Nitrogen 21 mg/dL (8-23); Calcium 8.3 mg/dL (8.6-10.4); Carbon Dioxide 18 mmol/L (22-30); Chloride 106 mmol/L (96-108); Globulin 2.8 gm/dL (2.2-3.7); Glucose 101 mg/dL (70-105); Phosphorous 3.3 mg/dL (2.5-4.5); Potassium 3.9 mmol/L (3.3-5.1); Sodium 135 mmol/L (133-145); Triglycerides 42 mg/dL (<150); Uric Acid 5.9 mg/dL (2.5-8.0)
[2024-12-04] MEDS: ASPIRIN 81 MG TAB.CHEW PO SCH (08:08)
[2024-12-04] MEDS: LOSARTAN 50 MG TABLET PO SCH (08:08)
[2024-12-04] MEDS: ENOXAPARIN 40 MG/0.4 ML SYRINGE SQ SCH (08:09)
[2024-12-04] MEDS: LINEZOLID 600 MG TABLET PO SCH (11:13)
[2024-12-04] MEDS: LINEZOLID 600 MG/300 ML BAG IV SCH (11:22)
[2024-12-04] MEDS: LIDOCAINE 4% TOP PATCH TOPICAL SCH (11:22)
[2024-12-05 06:12] LABS: Basophils # (Auto) 0.01 K/mcL (0.00-0.30); Basophils % (Auto) 0.1 % (0.0-2.0); Eosinophils # (Auto) 0.60 K/mcL (0.00-0.70); Eosinophils % (Auto) 5.3 % (0.0-7.0); Hematocrit 24.0 % (40.1-51.0); Hemoglobin 7.5 g/dL (13.7-17.5); Lymphocytes # (Auto) 0.73 K/mcL (1.50-4.80); Lymphocytes % (Auto) 6.5 % (15.5-49.0); Mean Corpuscular HGB Conc 31.3 g/dL (31.0-36.0); Monocytes # (Auto) 0.65 K/mcL (0.10-0.90); Monocytes % (Auto) 5.8 % (1.0-12.0); Neutrophils % (Auto) 82.0 % (38.0-78.0); Platelet Count 283 K/mcL (140-440); RBC 2.35 M/mcL (4.63-6.08); WBC 11.2 K/mcL (4.5-11.0)
[2024-12-05 06:48] LABS: ALT/SGPT 39 U/L (<40); AST/SGOT 37 U/L (<40); Albumin 2.6 gm/dL (3.2-5.2); Albumin/Globulin Ratio 0.9 (1.0-2.3); Alkaline Phosphatase 138 U/L (39-117); Anion Gap 10.0 (8.0-16.0); Bilirubin,Direct < 0.2 mg/dL (0-0.3); Bilirubin,Total < 0.2 mg/dL (0.1-1.0); Blood Urea Nitrogen 17 mg/dL (8-23); Calcium 8.3 mg/dL (8.6-10.4); Carbon Dioxide 18 mmol/L (22-30); Chloride 106 mmol/L (96-108); Globulin 2.8 gm/dL (2.2-3.7); Glucose 101 mg/dL (70-105); Phosphorous 2.7 mg/dL (2.5-4.5); Potassium 4.3 mmol/L (3.3-5.1); Sodium 134 mmol/L (133-145); Triglycerides 53 mg/dL (<150); Uric Acid 5.0 mg/dL (2.5-8.0)
[2024-12-06] MEDS: MELATONIN 3 MG TABLET PO PRN (02:25)
[2024-12-06] MEDS: BACLOFEN 10 MG TABLET PO PRN (02:25)
[2024-12-06] MEDS: ACETAMINOPHEN 325 MG TABLET PO PRN (02:25)
[2024-12-06 06:29] LABS: Basophils # (Auto) 0.02 K/mcL (0.00-0.30); Basophils % (Auto) 0.3 % (0.0-2.0); Eosinophils # (Auto) 0.64 K/mcL (0.00-0.70); Eosinophils % (Auto) 8.1 % (0.0-7.0); Hematocrit 22.6 % (40.1-51.0); Hemoglobin 7.2 g/dL (13.7-17.5); Lymphocytes # (Auto) 0.73 K/mcL (1.50-4.80); Lymphocytes % (Auto) 9.2 % (15.5-49.0); Mean Corpuscular HGB Conc 31.9 g/dL (31.0-36.0); Monocytes # (Auto) 0.62 K/mcL (0.10-0.90); Monocytes % (Auto) 7.8 % (1.0-12.0); Neutrophils % (Auto) 74.5 % (38.0-78.0); Platelet Count 288 K/mcL (140-440); RBC 2.26 M/mcL (4.63-6.08); WBC 7.9 K/mcL (4.5-11.0)
[2024-12-06 06:51] LABS: ALT/SGPT 33 U/L (<40); AST/SGOT 27 U/L (<40); Albumin 2.7 gm/dL (3.2-5.2); Albumin/Globulin Ratio 1.0 (1.0-2.3); Alkaline Phosphatase 135 U/L (39-117); Anion Gap 9.0 (8.0-16.0); Bilirubin,Direct < 0.2 mg/dL (0-0.3); Bilirubin,Total < 0.2 mg/dL (0.1-1.0); Blood Urea Nitrogen 17 mg/dL (8-23); Calcium 8.1 mg/dL (8.6-10.4); Carbon Dioxide 20 mmol/L (22-30); Chloride 107 mmol/L (96-108); Globulin 2.7 gm/dL (2.2-3.7); Glucose 96 mg/dL (70-105); Phosphorous 2.7 mg/dL (2.5-4.5); Potassium 4.3 mmol/L (3.3-5.1); Sodium 136 mmol/L (133-145); Triglycerides 50 mg/dL (<150); Uric Acid 4.3 mg/dL (2.5-8.0)
[2024-12-06 12:37] LABS: Hematocrit 23.1 % (40.1-51.0); Hemoglobin 7.2 g/dL (13.7-17.5)
[2024-12-06] MEDS: CEFEPIME 2 GM VIAL IV SCH (14:28)
[2024-12-06] MEDS: 0.9 % SODIUM CHLORIDE 250 ML IV SCH (14:51)
[2024-12-07 05:56] LABS: Basophils # (Auto) 0.02 K/mcL (0.00-0.30); Basophils % (Auto) 0.3 % (0.0-2.0); Eosinophils # (Auto) 0.57 K/mcL (0.00-0.70); Eosinophils % (Auto) 8.0 % (0.0-7.0); Hematocrit 23.7 % (40.1-51.0); Hemoglobin 7.4 g/dL (13.7-17.5); Lymphocytes # (Auto) 0.80 K/mcL (1.50-4.80); Lymphocytes % (Auto) 11.3 % (15.5-49.0); Mean Corpuscular HGB Conc 31.2 g/dL (31.0-36.0); Monocytes # (Auto) 0.64 K/mcL (0.10-0.90); Monocytes % (Auto) 9.0 % (1.0-12.0); Neutrophils % (Auto) 71.0 % (38.0-78.0); Platelet Count 295 K/mcL (140-440); RBC 2.36 M/mcL (4.63-6.08); WBC 7.1 K/mcL (4.5-11.0)
[2024-12-07 06:07] LABS: C-Reactive Protein 3.37 mg/dL (0.03-0.80)
[2024-12-07 06:11] LABS: ALT/SGPT 37 U/L (<40); AST/SGOT 32 U/L (<40); Albumin 2.7 gm/dL (3.2-5.2); Albumin/Globulin Ratio 1.0 (1.0-2.3); Alkaline Phosphatase 142 U/L (39-117); Anion Gap 10.0 (8.0-16.0); Bilirubin,Direct < 0.2 mg/dL (0-0.3); Bilirubin,Total < 0.2 mg/dL (0.1-1.0); Blood Urea Nitrogen 19 mg/dL (8-23); Calcium 8.3 mg/dL (8.6-10.4); Carbon Dioxide 21 mmol/L (22-30); Chloride 105 mmol/L (96-108); Globulin 2.8 gm/dL (2.2-3.7); Glucose 102 mg/dL (70-105); Phosphorous 2.6 mg/dL (2.5-4.5); Potassium 4.4 mmol/L (3.3-5.1); Sodium 136 mmol/L (133-145); Triglycerides 62 mg/dL (<150); Uric Acid 4.0 mg/dL (2.5-8.0)
[2024-12-07] MEDS: MUPIROCIN OINT 2% 22GM NARES SCH (08:21)
[2024-12-07] MEDS: IPRATROPIUM/ALBUTEROL 3 ML AMPUL.NEB NEB PRN (08:45)
[2024-12-07] MEDS: LACTATED RINGERS 1,000 ML IV ONE (11:29)
[2024-12-07] MEDS ORDERED: NOREPINEPHRINE BITARTRATE 16 MG in 0.9 % SODIUM CHLORIDE 234 ML IV PRN (11:30)
[2024-12-07] MEDS ORDERED: NOREPINEPHRINE 250 ML IV PRN (11:30)
[2024-12-07] MEDS ORDERED: 0.9 % SODIUM CHLORIDE 250 ML IV SCH (11:30)
[2024-12-07] MEDS: 0.9 % SODIUM CHLORIDE 250 ML IV SCH (11:49)
[2024-12-08 06:17] LABS: C-Reactive Protein 1.91 mg/dL (0.03-0.80)
[2024-12-08 06:20] LABS: ALT/SGPT 43 U/L (<40); AST/SGOT 40 U/L (<40); Albumin 2.8 gm/dL (3.2-5.2); Albumin/Globulin Ratio 1.0 (1.0-2.3); Alkaline Phosphatase 146 U/L (39-117); Anion Gap 10.0 (8.0-16.0); Bilirubin,Direct < 0.2 mg/dL (0-0.3); Bilirubin,Total < 0.2 mg/dL (0.1-1.0); Blood Urea Nitrogen 21 mg/dL (8-23); Calcium 8.1 mg/dL (8.6-10.4); Carbon Dioxide 21 mmol/L (22-30); Chloride 106 mmol/L (96-108); Globulin 2.7 gm/dL (2.2-3.7); Glucose 103 mg/dL (70-105); Phosphorous 3.0 mg/dL (2.5-4.5); Potassium 4.6 mmol/L (3.3-5.1); Sodium 137 mmol/L (133-145); Triglycerides 56 mg/dL (<150); Uric Acid 3.8 mg/dL (2.5-8.0)
[2024-12-08] MEDS: LINEZOLID 600 MG TABLET PO SCH (08:44)
[2024-12-08] MEDS: LACTATED RINGERS 500 ML IV PRN (08:45)
[2024-12-08] MEDS: MUPIROCIN OINT 2% 22GM NARES SCH (08:48)
[2024-12-08 10:35] LABS: Retic Absolute 0.03 M/mcL (0.03-0.11)
[2024-12-08] MEDS: IRON POLYSACCHARIDE COMPLEX 150 MG CAPSULE PO SCH (10:39)
[2024-12-08 11:14] LABS: Iron 52.0 ug/dL (61-157); TIBC Calculation 288.0 ug/dl (228-428); Transferrin % Saturation 18.0 % (20-50)
[2024-12-08 11:24] LABS: Ferritin 41.8 ng/mL (30.0-400.0)
[2024-12-08 11:33] LABS: Basophils # (Auto) 0.03 K/mcL (0.00-0.30); Basophils % (Auto) 0.5 % (0.0-2.0); Eosinophils # (Auto) 0.54 K/mcL (0.00-0.70); Eosinophils % (Auto) 8.3 % (0.0-7.0); Hematocrit 22.3 % (40.1-51.0); Hemoglobin 7.0 g/dL (13.7-17.5); Lymphocytes # (Auto) 0.67 K/mcL (1.50-4.80); Lymphocytes % (Auto) 10.4 % (15.5-49.0); Mean Corpuscular HGB Conc 31.4 g/dL (31.0-36.0); Monocytes # (Auto) 0.62 K/mcL (0.10-0.90); Monocytes % (Auto) 9.6 % (1.0-12.0); Neutrophils % (Auto) 70.6 % (38.0-78.0); Platelet Count 299 K/mcL (140-440); RBC 2.24 M/mcL (4.63-6.08); WBC 6.5 K/mcL (4.5-11.0)
[2024-12-08] MEDS: 0.9 % SODIUM CHLORIDE 250 ML IV SCH (11:45)
[2024-12-08] MEDS: FOLIC ACID 1 MG TABLET PO SCH (13:17)
[2024-12-09 05:47] LABS: Hematocrit 26.7 % (40.1-51.0); Hemoglobin 8.6 g/dL (13.7-17.5)
[2024-12-09 06:24] LABS: ALT/SGPT 58 U/L (<40); AST/SGOT 54 U/L (<40); Albumin 3.1 gm/dL (3.2-5.2); Albumin/Globulin Ratio 1.0 (1.0-2.3); Alkaline Phosphatase 161 U/L (39-117); Anion Gap 10.0 (8.0-16.0); Bilirubin,Direct < 0.2 mg/dL (0-0.3); Bilirubin,Total < 0.2 mg/dL (0.1-1.0); Blood Urea Nitrogen 21 mg/dL (8-23); C-Reactive Protein 1.25 mg/dL (0.03-0.80); Calcium 8.7 mg/dL (8.6-10.4); Carbon Dioxide 22 mmol/L (22-30); Chloride 104 mmol/L (96-108); Globulin 3.1 gm/dL (2.2-3.7); Glucose 99 mg/dL (70-105); Phosphorous 3.1 mg/dL (2.5-4.5); Potassium 4.7 mmol/L (3.3-5.1); Sodium 136 mmol/L (133-145); Triglycerides 68 mg/dL (<150); Uric Acid 3.6 mg/dL (2.5-8.0)
[2024-12-09] MEDS: FOLIC ACID 1 MG TABLET PO SCH (08:51)
[2024-12-09] MEDS: MEROPENEM 1 GM in 0.9 % SODIUM CHLORIDE 50 ML IV SCH ×2 (10:01→11:04)
[2024-12-10 06:06] LABS: C-Reactive Protein 1.05 mg/dL (0.03-0.80)
[2024-12-10] MEDS: DICLOFENAC SODIUM 1% TOPICAL PRN (20:16)
[2024-12-11] MEDS: HEPARIN 10 UNITS/ML 5ML FLUSH IV SCH (10:53)
[2024-12-11] MEDS: HEPARIN 10 UNITS/ML 5ML FLUSH ONE (11:32)
[2024-12-11 12:11] VITALS: O2SAT 93
[2024-12-11 14:24] VITALS: TEMP 98.8
== END 2024-12-11 14:06 | DRG 871 ==
LOC: ED 06:16 → ICU 12:49 → MEDSUR 22:46 → ICU 12-06 12:03
PROVIDERS: ADMIT Student in an Organized Health Care Education/Training Program; ATTEND Internal Medicine